=== PATIENT | male | born 1975 | race Caucasian/White ===

== ENCOUNTER 2021-09-02 16:48 | Emergency (ER) | payer OTHER, SELFPAY ==
[2021-09-02] VITALS (12 sets, daily range): BP systolic 127–157; BP diastolic 64–97; PULSE 67–88; RESP 16–25; TEMP 36.9; O2SAT 94–100; BMI 30.3
[2021-09-02 17:59] LABS: Add Manual Diff / Slide Review NO; Basophils Absolute Auto 0 /uL (0-100); Basophils Percent Auto 0.8 % (0-2); Eosinophils Absolute Auto 100 /uL (0-450); Eosinophils Percent Auto 2.4 % (2-4); Hematocrit 41.7 % (41-53); Hemoglobin 14.5 g/dL (13.5-17.5); Lymphocytes Absolute Auto 1900 /uL (1100-4500); Lymphocytes Percent Auto 30.1 % (25-40); Mean Corpuscular HGB Conc 34.6 % (30-36); Mean Corpuscular Hemoglobin 28.2 PG (26-34); Mean Corpuscular Volume 81.5 fL (80-100); Monocytes Absolute Auto 400 /uL (0-900); Monocytes Percent Auto 7.1 % (3-14); Neutrophils Absolute Auto 3700 /uL (1500-7000); Neutrophils Percent Auto 59.6 % (50-75); Platelet Count 191 X10^3/uL (150-400); Red Blood Cell Count 5.12 X10^6/uL (4.5-5.9); Red Cell Distribution Width 14.3 % (11.6-14.8); White Blood Cell Count 6.2 X10^3/uL (4.5-11.0)
[2021-09-02] MEDS: ONDANSETRON 4 MG/2 ML INJ IV (18:07)
[2021-09-02] MEDS: HYDROMORPHONE 1 MG INJ IV ×2 (18:08→19:58)
[2021-09-02 18:15] LABS: Prothrombin Time 11.1 SECONDS (10.1-12.7)
[2021-09-02 18:15] LABS: Alanine Aminotransferase 68 IU/L (<50); Albumin 4.2 g/dL (3.5-5.0); Albumin Globulin Ratio 1.5 (1.0-2.8); Alkaline Phosphatase 86 U/L (38-126); Aspartate Aminotransferase 39 IU/L (17-59); BUN Creatinine Ratio 21.9 (6-22); Bilirubin Total 0.5 mg/dL (0.2-1.3); Blood Urea Nitrogen 16 mg/dL (9-20); Carbon Dioxide 26 mmol/L (22-32); Chloride 105 mmol/L (98-107); Estimated Glomerular Filt Rate > 60.0 mL/min (>60); Globulin 2.8 g/dL (1.7-4.1); Glucose 243 mg/dL (70-100); HEMOLYSIS < 15 (0-50); Lipase 62 U/L (23-300); Potassium 3.5 mmol/L (3.4-5.1); Sodium 140 mmol/L (137-145)
[2021-09-02 18:18] LABS: PTT Partial Thromboplastin Tim 33 SECONDS (26.4-36.2)
--- NOTE | 2021-09-02 18:46 | ED.ABDPAIN ---
HPI - Abdominal Pain General Chief Complaint: Abdominal Pain Stated Complaint: ABD PAIN TOWARDS RIGHT SIDE NAUSEA HEADACHE Time Seen by Provider: 09/02/21 18:03 Source: patient Mode of arrival: Ambulatory Limitations: no limitations History of Present Illness HPI narrative: 45-year-old male nonsmoker with history of gastric surgery presents with a chief complaint of gradually worsening symptoms since yesterday. He states that initially he had generalized fatigue with achiness and nausea and starting this morning began to have increasing generalized abdominal pain which has settled in his right lower quadrant. He states that any motion makes the pain significant worse. Rest seems to be the only thing that helps. He has had decreased appetite and last ate at about 10:00 a.m. this morning. He denies any fever or chills but generally feels unwell. He has no urinary complaints such as dysuria, frequency, urgency or hematuria. Related Data Previous Rx's Medication Instructions Recorded hydrocodone 5 mg-acetaminophen 325 1 tab PO Q4-6H PRN #10 tab 09/02/21 mg tablet ondansetron 4 mg disintegrating 4 mg PO TID-QID PRN #10 tab 09/02/21 tablet Allergies Allergy/AdvReac Type Severity Reaction Status Date / Time Penicillins Allergy Verified 09/02/21 17:44 Review of Systems Review of Systems Narrative: GENERAL: See HPI HEENT: Denies sinus pain, ear pain, sore throat, difficulty swallowing, dizziness. RESPIRATORY: Denies dyspnea, cough, wheezing, hemoptysis, sputum. CARDIOVASCULAR: Denies chest pain, palpitations, orthopnea, edema, GASTROINTESTINAL: See HPI : See HPI MUSCULOSKELETAL: denies weakness, joint pain, or bony pain SKIN: Denies rash, skin lesions, or other NEUROLOGIC: Denies weakness, headache, numbness, change in speech, confusion, seizures, incoordination. PSYCHIATRIC: No concerning psychosocial issues. 12 point review of systems is negative except for those stated above Patient History Social History Smoking Status: Never smoker Smoking Status: Never smoker alcohol intake frequency: holidays/special occasions only Substance Use Type: does not use Exam Narrative Exam Narrative: GENERAL: [Board or year old patient appears stated age. Well-developed patient, in obvious distress, rubbing his lower abdomen HEAD: Atraumatic. Normocephalic. EYES: Pupils equal round and reactive. Extraocular motions intact. No scleral icterus. No injection or drainage. ENT: Nose without bleeding, purulent drainage. Throat without erythema, tonsillar hypertrophy or exudate. Airway patent. NECK: Trachea midline. Non tender CARDIOVASCULAR: Regular rate and rhythm without murmurs, gallops, or rubs. RESPIRATORY: Clear to auscultation. Breath sounds equal bilaterally. No wheezes, rales, or rhonchi. GASTROINTESTINAL: Abdomen soft, tender in the right lower quadrant with positive heel tap, obturator and psoas. : No testicular pain, swelling or redness, no palpable inguinal hernia EXTREMITIES: No edema or joint tenderness. BACK: Nontender without deformity or crepitance. No flank tenderness. NEURO: AOx3. SKIN: No rash or erythema of visible areas Initial Vital Signs Initial Vital Signs: Vital Signs Pulse Rate 88 09/02/21 17:44 Respiratory Rate 20 09/02/21 17:44 Blood Pressure 140/92 H 09/02/21 17:44 Pulse Oximetry 97 09/02/21 17:44 Course Orders Ordered: ED Orders 09/02/21 17:42 EKG-12 Lead Stat 09/02/21 17:47 Complete Blood Count AUTO DIFF Stat Comprehensive Metabolic Panel Stat Lipase Stat 09/02/21 18:06 Partial Thromboplastin Time Stat Prothrombin Time INR Stat 09/02/21 18:25 COVID19 - ADMIT ([employer] HAND swab/PCR) Stat 09/02/21 18:52 CT abdomen pelvis w con Stat 09/02/21 20:44 Urinalysis and Microscopic Stat Discontinued Medications Hydrocodone Bitart/Acetaminophen (Hydrocodone/Acet 5/325 Prepack) 1 bottle MISC SEEINSTR ONE Stop: 09/02/21 20:31 Hydromorphone HCl (Hydromorphone 1 Mg Inj) 1 mg IV NOW ONE Stop: 09/02/21 18:04 Last Admin: 09/02/21 18:08 Dose: 1 mg Documented by: BERNARDO Hydromorphone HCl (Hydromorphone 1 Mg Inj) 1 mg IV NOW ONE Stop: 09/02/21 19:42 Last Admin: 09/02/21 19:58 Dose: 1 mg Documented by: BERNARDO Ondansetron HCl (Ondansetron 4 Mg/2 Ml Inj) 4 mg IV NOW ONE Stop: 09/02/21 17:42 Last Admin: 09/02/21 18:07 Dose: 4 mg Documented by: BERNARDO Ondansetron HCl (Ondansetron 4 Mg Odt Prepack) 1 bottle MISC SEEINSTR ONE Stop: 09/02/21 20:31 Consultations Consultation #1: General surgery consulted early in the visit given concern for many classic elements of appendicitis. Recommendation to perform CT scan Consultation #2: Upon receipt of CT scan and labs I called surgery back. Patient has very reassuring vital signs, heart rate has never been above the 80s. There is no fever, no white count and CT scan and sees no abnormalities. Surgery recommends patient be discharged with symptomatic treatment return precautions and encouragement for close follow-up Vital Signs Vital signs: Vital Signs - 8 hr 09/02/21 17:44 09/02/21 17:48 09/02/21 18:14 Temperature 98.4 F Pulse Rate 88 84 Respiratory Rate 20 22 Blood Pressure 140/92 H Pulse Oximetry 97 96 09/02/21 18:17 09/02/21 18:30 09/02/21 19:10 Temperature Pulse Rate 83 79 85 Respiratory Rate 25 H 17 Blood Pressure 149/83 H 141/83 H Pulse Oximetry 95 95 95 09/02/21 19:11 Temperature Pulse Rate 74 Respiratory Rate 21 Blood Pressure 138/85 Pulse Oximetry 95 MDM - Abdominal Pain Lab Data Result diagrams: 09/02/21 17:47 09/02/21 17:47 Labs: Lab Results 09/02/21 09/02/21 09/02/21 Range/Units 17:47 17:47 18:06 WBC 6.2 (4.5-11.0) X10^3/uL RBC 5.12 (4.5-5.9) X10^6/uL Hgb 14.5 (13.5-17.5) g/dL Hct 41.7 (41-53) % MCV 81.5 (80-100) fL MCH 28.2 (26-34) PG MCHC 34.6 (30-36) % RDW 14.3 (11.6-14.8) % Plt Count 191 (150-400) X10^3/uL Neut % (Auto) 59.6 (50-75) % Lymph % (Auto) 30.1 (25-40) % [place] % (Auto) 7.1 (3-14) % Eos % (Auto) 2.4 (2-4) % Baso % (Auto) 0.8 (0-2) % Neut # (Auto) 3700 (6533-8387) /uL Lymph # (Auto) 1900 (1884-9499) /uL [place] # (Auto) 400 (0-900) /uL Eos # (Auto) 100 (0-450) /uL Baso # (Auto) 0 (0-100) /uL PT 11.1 (10.1-12.7) SECONDS INR 1.0 (0.9-1.3) APTT 33 (26.4-36.2) SECONDS Sodium 140 (137-145) mmol/L Potassium 3.5 (3.4-5.1) mmol/L Chloride 105 (98-107) mmol/L Carbon Dioxide 26 (22-32) mmol/L BUN 16 (9-20) mg/dL Creatinine 0.73 (0.66-1.25) mg/dL Estimated GFR > 60.0 (>60) mL/min BUN/Creatinine Ratio 21.9 (6-22) Glucose 243 H (70-100) mg/dL Calcium 9.0 (8.4-10.2) mg/dL Total Bilirubin 0.5 (0.2-1.3) mg/dL AST 39 (17-59) IU/L ALT 68 H (<50) IU/L Alkaline Phosphatase 86 (38-126) U/L Total Protein 7.0 (6.3-8.2) g/dL Albumin 4.2 (3.5-5.0) g/dL Globulin 2.8 (1.7-4.1) g/dL Albumin/Globulin Ratio 1.5 (1.0-2.8) Lipase 62 (23-300) U/L Urine Color Urine Appearance Urine pH (4.5-8.0) Ur Specific [place] (1.000-1.035) Urine Protein (Negative) Urine Glucose (UA) (Negative) g/dL Urine Ketones (NEGATIVE) Urine Occult Blood (Negative) Urine Nitrate (Negative) Urine Bilirubin (NEGATIVE) Urine Urobilinogen (0.2) E.U./dL Ur Leukocyte Esterase (NEGATIVE) Urine RBC (0-5/HPF) Urine WBC (0-5/HPF) Other Crystals Urine Bacteria (None) Ur Culture Indicated? SARS-CoV-2 (PCR) (Negative) 09/02/21 09/02/21 Range/Units 18:25 20:44 WBC (4.5-11.0) X10^3/uL RBC (4.5-5.9) X10^6/uL Hgb (13.5-17.5) g/dL Hct (41-53) % MCV (80-100) fL MCH (26-34) PG MCHC (30-36) % RDW (11.6-14.8) % Plt Count (150-400) X10^3/uL Neut % (Auto) (50-75) % Lymph % (Auto) (25-40) % [place] % (Auto) (3-14) % Eos % (Auto) (2-4) % Baso % (Auto) (0-2) % Neut # (Auto) (9767-7178) /uL Lymph # (Auto) (0874-4553) /uL [place] # (Auto) (0-900) /uL Eos # (Auto) (0-450) /uL Baso # (Auto) (0-100) /uL PT (10.1-12.7) SECONDS INR (0.9-1.3) APTT (26.4-36.2) SECONDS Sodium (137-145) mmol/L Potassium (3.4-5.1) mmol/L Chloride (98-107) mmol/L Carbon Dioxide (22-32) mmol/L BUN (9-20) mg/dL Creatinine (0.66-1.25) mg/dL Estimated GFR (>60) mL/min BUN/Creatinine Ratio (6-22) Glucose (70-100) mg/dL Calcium (8.4-10.2) mg/dL Total Bilirubin (0.2-1.3) mg/dL AST (17-59) IU/L ALT (<50) IU/L Alkaline Phosphatase (38-126) U/L Total Protein (6.3-8.2) g/dL Albumin (3.5-5.0) g/dL Globulin (1.7-4.1) g/dL Albumin/Globulin Ratio (1.0-2.8) Lipase (23-300) U/L Urine Color Yellow Urine Appearance Cloudy Urine pH 8.0 (4.5-8.0) Ur Specific [place] <=1.005 (1.000-1.035) Urine Protein Negative (Negative) Urine Glucose (UA) Trace H (Negative) g/dL Urine Ketones Negative (NEGATIVE) Urine Occult Blood Negative (Negative) Urine Nitrate Negative (Negative) Urine Bilirubin Negative (NEGATIVE) Urine Urobilinogen 0.2 (0.2) E.U./dL Ur Leukocyte Esterase Negative (NEGATIVE) Urine RBC 0-1/hpf (0-5/HPF) Urine WBC 0-1/hpf (0-5/HPF) Other Crystals 1+ amorphous Urine Bacteria None seen (None) Ur Culture Indicated? Cult not indicated SARS-CoV-2 (PCR) Negative (Negative) Imaging Data CT scan - abdomen/pelvis: Radiologist's Impression: [address] [place] [id number] Scan Report Signed Patient: Myrna Malone MR#: [id number] : 1975 Acct:[id number] Age/Sex: 45 / M Date of Service: 09/02/21 Loc: ED Accession Number: [id number] ?? Procedure: CT abdomen pelvis w con Ordering Provider: Bob Vidales D.O. PROCEDURE:? CT ABDOMEN PELVIS W CON ? INDICATIONS:? RLQ pain, rebound appy? ? TECHNIQUE:? After the administration of intravenous contrast, axial sections acquired from the lung bases to the pubic symphysis.? Coronal and sagittal reformats were performed.? For radiation dose reduction, the following was used:? automated exposure control, adjustment of mA and/or kV according to patient size.? ? COMPARISON:? None. ? FINDINGS: Image quality:? Excellent.? ? Lung bases:? Lung bases are clear.? Heart size is normal. ? Solid organs:? Liver: The liver has no mass or intrahepatic biliary ductal dilatation. The portal vein and hepatic veins are patent.? The liver has geographic decreased density consistent with hepatic steatosis. Biliary: The gallbladder has no gallstones, pericholecystic fluid, gallbladder wall thickening, or surrounding inflammatory change. Pancreas: The pancreas has no mass or ductal dilatation. There is no surrounding inflammation. Spleen: Normal size. There are no masses. Adrenals: No hypertrophy or nodules. Kidneys: No obstructive calculus or hydronephrosis.? No solid mass. No cystic mass.? The right kidney has a 1.5 centimeters simple cyst in the inferior pole. ? Peritoneum and bowel:? The distal esophagus and stomach are normal.? The small bowel has a normal caliber.? There is fluid in the distal small bowel consistent with enteritis.. The terminal ileum is normal. The large bowel diverticulosis with no evidence of diverticulitis.? The appendix is normal. No free fluid or air.? ? Nodes and vessels:? No retroperitoneal or mesenteric adenopathy by size criteria.? Aorta and inferior vena cava are normal in size.? The aorta has some atherosclerotic calcifications. ? Miscellaneous:? No abdominal wall mass or hernia. ? PELVIS:? Genitourinary:? The bladder has no wall thickening or mass. No bladder calcifications. ? Miscellaneous:? No inguinal hernias or adenopathy.? ? Bones:? No suspicious bony lesions.? No vertebral body compression fractures.? ? IMPRESSION:? 1. No acute abnormality of the abdomen or pelvis. 2. Normal appendix.? No kidney stone. 3. Hepatic steatosis. ? Dictated by: Lew Rosa M.D. on 09/02/2021 at 19:24 ? ? Approved by: Lew Rosa M.D. on 09/02/2021 at 19:30 ? MDM Narrative Medical decision making narrative: Patient with right lower quadrant pain has a story and physical exam the raise a question of appendicitis, however there are no objective findings to suggest this. Vital signs are very reassuring, urine shows no infection, blood work without significant abnormalities and CT scan shows no appendicitis, kidney stone, mesenteric adenitis, bowel obstruction or other. Testicular torsion and hernia considered but no findings on exam to suggest this. Multiple conversations with on-call surgery who shares the opinion that there is no indication for admission or a trip to the operating room. Return precautions discussed with the patient and questions answered to his apparent satisfaction. Discharge Plan Departure Patient Disposition: Home Clinical Impression: Abdominal pain, acute, right lower quadrant Instructions: DI for Abdominal Pain-Adult Activity Restrictions/Additional Instructions: *You have been diagnosed with [right lower quadrant pain with very reassuring vital signs, lab work, and CT scan. There is no evidence of bowel obstruction, appendicitis, kidney stone or other abnormal finding *What to do: *Please continue to take your regular medications as directed. [ x] New medication prescriptions sent to your pharmacy: [facility] [ ] New medication written as a paper prescription [ ] No new medications given *Please consider a clear liquid diet for the next day or two and then advance as tolerated *Please follow up with your primary care provider in 2-3 days, call for an appointment. Let them know you were seen in the Emergency Department and that we ask that you be seen in follow up. We will electronically transmit a record of today's note if your PCP is in our system *If you do not have a primary care provider please contact the [facility] Resource line at [phone]. They will ask some questions about your medical history and help get you set up with a doctor in the community. *Return to Emergency Department if you should have any new, worsening or concerning symptoms, such as [fever greater than 101 F, shaking chills, worsening pain, persistent vomiting or other bothersome symptoms] Prescriptions: New hydrocodone-acetaminophen 5-325 mg tablet 1 tab PO Q4-6H PRN (Reason: pain) Qty: 10 RF: 0 ondansetron 4 mg tablet,disintegrating 4 mg PO TID-QID PRN (Reason: nausea and vomiting) Qty: 10 RF: 0
--- NOTE | 2021-09-02 18:52 | DI.CT.S_ITS ---
PROCEDURE: CT ABDOMEN PELVIS W CON INDICATIONS: RLQ pain, rebound appy? TECHNIQUE: After the administration of intravenous contrast, axial sections acquired from the lung bases to the pubic symphysis. Coronal and sagittal reformats were performed. For radiation dose reduction, the following was used: automated exposure control, adjustment of mA and/or kV according to patient size. COMPARISON: None. FINDINGS: Image quality: Excellent. Lung bases: Lung bases are clear. Heart size is normal. Solid organs: Liver: The liver has no mass or intrahepatic biliary ductal dilatation. The portal vein and hepatic veins are patent. The liver has geographic decreased density consistent with hepatic steatosis. Biliary: The gallbladder has no gallstones, pericholecystic fluid, gallbladder wall thickening, or surrounding inflammatory change. Pancreas: The pancreas has no mass or ductal dilatation. There is no surrounding inflammation. Spleen: Normal size. There are no masses. Adrenals: No hypertrophy or nodules. Kidneys: No obstructive calculus or hydronephrosis. No solid mass. No cystic mass. The right kidney has a 1.5 centimeters simple cyst in the inferior pole. Peritoneum and bowel: The distal esophagus and stomach are normal. The small bowel has a normal caliber. There is fluid in the distal small bowel consistent with enteritis.. The terminal ileum is normal. The large bowel diverticulosis with no evidence of diverticulitis. The appendix is normal. No free fluid or air. Nodes and vessels: No retroperitoneal or mesenteric adenopathy by size criteria. Aorta and inferior vena cava are normal in size. The aorta has some atherosclerotic calcifications. Miscellaneous: No abdominal wall mass or hernia. PELVIS: Genitourinary: The bladder has no wall thickening or mass. No bladder calcifications. Miscellaneous: No inguinal hernias or adenopathy. Bones: No suspicious bony lesions. No vertebral body compression fractures. IMPRESSION: 1. No acute abnormality of the abdomen or pelvis. 2. Normal appendix. No kidney stone. 3. Hepatic steatosis. Dictated by: Lew Rosa M.D. on 09/02/2021 at 19:24 Approved by: Lew Rosa M.D. on 09/02/2021 at 19:30
[2021-09-02 19:28] LABS: COVID19 - ADMIT (NP swab/PCR) Negative (Negative)
--- NOTE | 2021-09-02 20:33 | PC.NURSE ---
Callrd Dr Daugherty @ 1946 ( she was in OR and stated through her nurse that she would call back) she called back at [address] Vidales
[2021-09-02 21:01] LABS: Appearance Urine UA CLOUDY; Bilirubin Urine UA NEGATIVE (NEGATIVE); Color Urine UA YELLOW; Glucose Urine UA TRACE g/dL (Negative); Ketones Urine UA NEGATIVE (NEGATIVE); Leukocyte Esterase Urine UA NEGATIVE (NEGATIVE); Nitrite Urine UA NEGATIVE (Negative); Occult Blood Urine UA NEGATIVE (Negative); Protein Urine UA NEGATIVE (Negative); Specific Gravity Urine UA <=1.005 (1.000-1.035); Urobilinogen Urine UA 0.2 E.U./dL (0.2)
[2021-09-02 21:14] LABS: Bacteria Urine None Seen; Culture Indicated Urine Cult Not Indicated; Other Crystals Urine 1+ Amorphous; RBC Urine 0-1/HPF (0-5/HPF); WBC Urine 0-1/HPF (0-5/HPF)
[2021-09-02] MEDS: HYDROCODONE/ACET 5/325 PREPACK 1 BOTTLE MISC (21:34)
[2021-09-02] MEDS: ONDANSETRON 4 MG ODT PREPACK 1 BOTTLE MISC (21:34)
== END 2021-09-02 21:42 | disposition home or self-care (01) ==
PROVIDERS: Emergency Medicine; Emergency Provider Emergency Medicine
DX: R10.31 Right lower quadrant pain (principal); R53.83 Other fatigue; R11.0 Nausea; Z20.822 Contact with and (suspected) exposure to COVID-19
CPT/HCPCS: 36415; 74177; 80053; 81001; 83690; 85025; 85610; 85730; 87635; 96374; 96375; 96376; 99284; C9803; J1170; J2405; Q9967

== ENCOUNTER → 2021-10-30 16:51 | Outpatient (CLI) | payer OTHER, SELFPAY ==
--- NOTE | 2021-10-30 | DI.MRI.S_ITS ---
PROCEDURE: MR SHOULDER RT WO CON INDICATIONS: unspecified rotator cuff tear or rupture of right TECHNIQUE: Noncontrast oblique coronal T2 fast spin echo with fat saturation, oblique sagittal T1 spin echo and T2 fast spin echo with fat saturation, axial T1 spin echo and T2 fast spin echo with fat saturation through the shoulder. COMPARISON: [facility] [place], CR, XR SHOULDER 2+ VIEWS RIGHT, 10/03/2021, 10:57. FINDINGS: Image quality: Excellent. Rotator cuff: There is full-thickness tear of the subscapularis tendon. No tendon retraction. There is partial-thickness tear of the supraspinatus and infraspinatus tendons. Sagittal images demonstrate no rotator cuff muscle atrophy. Bones and bursae: No bone marrow contusions or fractures. There is moderate acromioclavicular and glenohumeral joint degeneration. The acromion demonstrates conventional anatomy, without an os acromiale. No pathologic subacromial-subdeltoid or subcoracoid bursal fluid is present. Small glenohumeral joint effusion. Capsule and soft tissues: There is degenerative fraying of the labrum. The long head of the biceps tendon demonstrates normal location and morphology. The rotator interval appears normal, without fibrosis. The coracohumeral ligament is normal in thickness. IMPRESSION: 1. Full-thickness tear of the subscapularis tendon. 2. Partial-thickness tear of the supraspinatus and infraspinatus tendons. 3. Moderate acromioclavicular and glenohumeral joint degeneration. 4. Degenerative labral fraying. 5. Small glenohumeral joint effusion. Dictated by: Micah Wright M.D. on 10/31/2021 at 7:47 Approved by: Micah Wright M.D. on 10/31/2021 at 9:18
== END ==
PROVIDERS: PCP Orthopaedic Surgery; Referring Provider Orthopaedic Surgery; Visit Provider Orthopaedic Surgery
DX: M75.121 Complete rotator cuff tear or rupture of right shoulder, not specified as traumatic (principal); M19.011 Primary osteoarthritis, right shoulder; M25.411 Effusion, right shoulder
CPT/HCPCS: 73221

== ENCOUNTER → 2022-01-15 09:17 | Outpatient (CLI) | payer OTHER, SELFPAY ==
[2022-01-15 11:37] LABS: COVID19 -Nasal RAPID Negative (Negative)
== END ==
PROVIDERS: Visit Provider Family Medicine Sleep Medicine
DX: Z20.822 Contact with and (suspected) exposure to COVID-19 (principal)
CPT/HCPCS: 87635; C9803

== ENCOUNTER 2022-01-17 11:00 | Day surgery (SDC) | payer OTHER, SELFPAY ==
[2022-01-15 11:53] VITALS: BMI 459.6
[2022-01-17] VITALS (9 sets, daily range): BP systolic 123–157; BP diastolic 76–98; PULSE 13–85; RESP 11–98; TEMP 35.8–36.3; O2SAT 90–98; BMI 459.6
[2022-01-17] MEDS: LACTATED RINGERS 1,000 ML 42 ML IV ×2 (11:31→15:01)
--- NOTE | 2022-01-17 12:43 | PM.HP.1 ---
History of Present Illness History of Present Illness Date Patient Seen: 01/17/22 Time Patient Seen: 12:43 Chief complaint: SDC Narrative: This is interim history and physical. The patient previously had a full history and physical performed. He had a recent episode of COVID-19 which delayed his surgery for 1 month. He has fully cleared that. Other issues have remained at their baseline. Patient History Medical History Arthritis COVID (~11/2021) Degenerative joint disease Depression Diabetes Fracture Headache, migraine Hepatic steatosis Hyperlipidemia Hypertension Traumatic complete tear of right rotator cuff Surgical History History of hernia repair History of vasectomy Family & Social History Social History: household members spouse Tobacco & Substance use: Smoking Status Never smoker alcohol intake frequency holiday/special occasion Substance Use Type does not use Meds Home Medications and Allergies Home Medications Medication Instructions Recorded Confirmed Type atorvastatin 20 mg tablet 20 mg PO DAILY 01/15/22 01/17/22 History celecoxib 100 mg capsule 100 mg PO DAILY 01/15/22 01/17/22 History duloxetine 30 mg capsule,delayed 30 mg PO DAILY 01/15/22 01/17/22 History release duloxetine 60 mg capsule,delayed 60 mg PO DAILY 01/15/22 01/17/22 History release lisinopril 40 mg tablet 40 mg PO DAILY 01/15/22 01/17/22 History sitagliptin 50 mg-metformin 1,000 50 - 1,000 tab PO BID 01/15/22 01/17/22 History mg tablet (Janumet) topiramate 25 mg tablet 50 mg PO BID 01/15/22 01/17/22 History Allergies Allergy/AdvReac Type Severity Reaction Status Date / Time Penicillins Allergy Unknown Verified 01/17/22 11:31 Review of Systems Review of Systems Narrative: The patient has no current symptoms of COVID-19. He states he has been in his normal state of health. Exam Vital Signs (past 8 hours): - 01/17/22 11:41 Temperature 97.3 F L Pulse Rate 85 Respiratory Rate 20 Blood Pressure 145/92 H Pulse Oximetry 98 Oxygen Delivery Method Room Air Narrative Exam Narrative: Chest is clear to auscultation. Cardiac exam is regular rate and rhythm. Abdomen is nontender. Musculoskeletal examination is documented in his previous history and physical. Assessment & Plan Assessment & Plan narrative: Right shoulder subscapularis tear. The plan is for him to undergo an open right subscapularis repair. This is a delayed presentation of the tear so there may be difficulty with repair and he is aware that this may lead to muscle transfer other salvage procedure. The risks benefits and alternatives have been reviewed with him and he has signed a 2nd consent form to bring it up today. Risks discussed included but were not limited to: Failure to improve, stiffness, infection, nerve damage, deep venous thrombosis, pulmonary embolism, stroke, myocardial infarction, permanent paralysis, aspiration pneumonia and . COVID-19 COVID-19 status: Negative Result date/Date tested (Pos, Neg/Pending): 01/15/22 Time Spent With Patient Critical Care time: I spent a total of [] minutes of critical care time on this patient's care today; this time is exclusive of procedural time.
[2022-01-17] MEDS: CEFAZOLIN 2 GM/20 ML SYRINGE IV (13:15)
--- NOTE | 2022-01-17 13:39 | PM.PROC.1 ---
Procedures Date/Time Date of procedure: 01/17/22 Time of procedure: 12:45 General Procedure description: Ultrasound guided interscalene brachial plexus nerve block for post op pain control after right should rotator cuff repair by Dr. Keys. Risk and benefits of procedure discussed with patient. ASA monitoring applied to patient. O2 given via nasal cannula. 2 mg Versed and 50 mcg fentanyl given for procedural sedation. Skin site was prepped with chlorhexidine and allowed to fully dry. Sterile gloves, mask, hat and probe cover were used to maintain sterility. 2% lidocaine and 30ga needle was used to make a small skin wheal at needle insertion site. Under ultrasound guidance, a 21ga 50mm [place] needle was directed into the interscalene groove (middle/anterior scalenes) near the brachial plexus. Patient reported no parasthesias. After negative aspiration, 20 mL 0.5% ropivacaine and 10mg dexamethasone were injected around brachial plexus. Patient tolerated procedure well.
--- NOTE | 2022-01-17 13:41 | SUR.PREOP ---
1250 - Dr Bermuen at bedside to perform interscalene block. Monitoring initiated and maintained throughout procedure. O2 at 2LNC applied. Medicated by Dr Berumen. 1251 - Time out performed. 1258 - Injection time. 1300 - Block complete. Pt remained stable throughout procedure with no adverse reactions noted.
--- NOTE | 2022-01-17 13:44 | SUR.OPER ---
Beach chair with Schlein shoulder positioner. Lower body on padded OR bed. Head in foam padded head cradle, secured with straps. Non-operative arm secured <90 degrees abduction. Pillow under knees. Safety belt at thigh. Cloth tape over blanket over lower legs. Gel pad under heels.
[2022-01-17] MEDS: BUPIVACAINE 0.5% (PF) 30 ML, EPINEPHrine 0.15 MG INJ (13:58)
--- NOTE | 2022-01-17 14:30 | PM.OP.1 ---
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 This initially was treated non operatively and a full workup was deferred until the patient returned to the [facility] which delayed the diagnosis of his subscapularis rupture considerably. He has agreed to an attempted open repair after discussion the risks benefits and alternatives. Risks discussed included but were not limited to: Failure to be able to repair, possible need for a muscle transfer, stiffness, infection, nerve damage, deep venous thrombosis, pulmonary embolism, stroke, myocardial infarction, permanent paralysis, aspiration pneumonia and . Surgeon: Lc Keys Academic Records Specialist: Clari Javier Click Yes if Unassisted: No Anesthesia Type: General, Peripheral nerve block and Local Operative Notes Findings: Tear of the upper 3rd of the subscapularis with minimal mobility of the remaining tendon. The supraspinatus appeared to be intact. There was extensive scarring of the deltoid and pectoralis to the underlying tissues. Closure Type: primary Specimen(s): none sent Prosthetic devices, grafts, tissues, transplants, or devices: Implants used in this procedure included a bio composite corkscrew FT 5.5 mm anchor with 2 #2 Sutures. Applied: implant(s) Estimated Blood Loss (mL): 50 Blood products transfused: none Procedure in detail: The patient was seen in the preoperative area where he identified his right shoulder as the operative site and this was marked with my initials. He underwent an interscalene block and was taken to the operating room and placed on the operating room table in the supine position where he underwent a general anesthetic. He received preoperative antibiotics. He was repositioned in the ?beach chair? position. All pressure points were well padded, and the knees were slightly bent to prevent tension on the sciatic nerves. The right arm was prepared for the fingertips to the base the neck with ChloraPrep in the usual fashion draped through sterile drapes. The shoulder was approached an approximately 10 cm incision starting just lateral to the coracoid and extending distally over the deltopectoral interval. The deltopectoral interval was exploited to access the shoulder in the vein was taken laterally and preserved throughout the case. The pectoralis muscle and the deltoid were adherent to the underlying tissues. These adhesions were lysed using a Downing elevator under the deltoid and digitally with my fingers underneath the pectoralis. The lateral aspect of the strap muscles was identified and scarred bursa was excised. With careful palpation the biceps tendon was identified as was the upper border of the subscapularis. The scarred capsule from the upper portion of the subscapularis to the leading edge of the supraspinatus was excised. I carefully inspected the mobility in appeared possible to advance the subscapularis partially to its insertion and to advance the rotator interval anteriorly partially. The upper portion of the lesser tuberosity was debrided to bleeding bone using the bur. A single anchor was placed. The sutures from this anchor were placed with 1 limb through the subscapularis and the 2nd limb through the rotator interval and these were tied to advance the subscapularis superiorly. A 3rd suture with #2 Ethibond was placed medial to the anchor stitches to continue the closure of the rotator interval. At the conclusion of this the repair was inspected and found to be robust and able to withstand motion of the shoulder. Wound was irrigated extensively with saline. The deltopectoral interval was loosely reapproximated with 0 Vicryl. The subcutaneous layer was closed with 3-0 Vicryl. The skin was closed with a running 3-0 barbed suture and Dermabond. The inferior portion of the wound was injected with 10 mL of 0 point 5% Marcaine for postoperative pain control. An Aquacel Ag dressing was applied. The patient's arm was placed in a sling and he was allowed to awaken from anesthetic and taken to the recovery room in good condition having tolerated the procedure well. Complications: none Post-operative Condition: stable Disposition: PACU Plan for aftercare: The patient will be discharged today. He will be maintained on a standard subscapularis repair protocol.
[2022-01-17] MEDS: HYDROMORPHONE 2 MG INJ IV ×4 (14:38→15:15)
[2022-01-17] MEDS: OXYCODONE/ACETAMINOPHEN 5/325 TABLET 1 TAB PO ×2 (14:54→15:03)
[2022-01-17] MEDS: hydrOXYzine pamoate 25 MG CAPSULE PO (15:04)
== END 2022-01-17 16:00 | disposition home or self-care (01) ==
PROVIDERS: PCP Family Medicine; Referring Provider Orthopaedic Surgery; Visit Provider Orthopaedic Surgery
PROC: (CPT 23412; principal; 2022-01-17 13:00)
DX: S46.011A Strain of muscle(s) and tendon(s) of the rotator cuff of right shoulder, initial encounter (principal); W01.0XXA Fall on same level from slipping, tripping and stumbling without subsequent striking against object, initial encounter; E11.9 Type 2 diabetes mellitus without complications; I10 Essential (primary) hypertension; E78.5 Hyperlipidemia, unspecified; Z79.84 Long term (current) use of oral hypoglycemic drugs
CPT/HCPCS: 23412; 64450; J0171; J0690; J1100; J1170; J2250; J2405; J2704; J3010

== ENCOUNTER 2022-02-13 11:16 | Emergency (ER) | payer OTHER, SELFPAY ==
[2022-02-13] VITALS (13 sets, daily range): BP systolic 106–140; BP diastolic 62–88; PULSE 68–86; RESP 11–21; TEMP 36.2; O2SAT 93–96; BMI 30.3
--- NOTE | 2022-02-13 11:32 | DI.RAD.S_ITS ---
PROCEDURE: XR CHEST 1V INDICATIONS: chest pain TECHNIQUE: One view of the chest was acquired. COMPARISON: None. FINDINGS: Surgical changes and devices: None. Lungs and pleura: Lungs are clear. No pleural effusions or pneumothorax. Mediastinum: Mediastinal contours appear normal. Heart size is normal. Bones and chest wall: No suspicious bony lesions. Overlying soft tissues appear unremarkable. IMPRESSION: No evidence acute pulmonary process. Dictated by: Maninder Kelsey M.D. on 02/13/2022 at 12:44 Approved by: Maninder Kelsey M.D. on 02/13/2022 at 12:44
[2022-02-13 12:24] LABS: Add Manual Diff / Slide Review NO; Basophils Absolute Auto 0 /uL (0-100); Basophils Percent Auto 0.4 % (0-2); Eosinophils Absolute Auto 100 /uL (0-450); Eosinophils Percent Auto 1.7 % (2-4); Hematocrit 45.3 % (41-53); Hemoglobin 15.7 g/dL (13.5-17.5); Lymphocytes Absolute Auto 1800 /uL (1100-4500); Lymphocytes Percent Auto 25.1 % (25-40); Mean Corpuscular HGB Conc 34.7 % (30-36); Mean Corpuscular Hemoglobin 28.3 PG (26-34); Mean Corpuscular Volume 81.7 fL (80-100); Monocytes Absolute Auto 500 /uL (0-900); Monocytes Percent Auto 7.5 % (3-14); Neutrophils Absolute Auto 4600 /uL (1500-7000); Neutrophils Percent Auto 65.3 % (50-75); Platelet Count 233 X10^3/uL (150-400); Red Blood Cell Count 5.55 X10^6/uL (4.5-5.9); Red Cell Distribution Width 14.7 % (11.6-14.8); White Blood Cell Count 7.1 X10^3/uL (4.5-11.0)
--- NOTE | 2022-02-13 12:25 | PC.NURSE ---
pt c/o increased left sided headache and feels full/pressure with decreased sensation to left face/cheek, NIH 1, FAST negative. notified.
[2022-02-13 12:29] LABS: Alanine Aminotransferase 66 IU/L (<50); Albumin 4.9 g/dL (3.5-5.0); Albumin Globulin Ratio 1.6 (1.0-2.8); Alkaline Phosphatase 86 U/L (38-126); Aspartate Aminotransferase 40 IU/L (17-59); BUN Creatinine Ratio 20.2 (6-22); Bilirubin Total 0.8 mg/dL (0.2-1.3); Blood Urea Nitrogen 17 mg/dL (9-20); Calcium 9.8 mg/dL (8.4-10.2); Carbon Dioxide 24 mmol/L (22-32); Chloride 104 mmol/L (98-107); Creatine Kinase 124 U/L (55-170); Estimated Glomerular Filt Rate > 60.0 mL/min (>60); Globulin 3.1 g/dL (1.7-4.1); Glucose 144 mg/dL (70-100); HEMOLYSIS < 15 (0-50); Lipase 52 U/L (23-300); Potassium 3.8 mmol/L (3.4-5.1); Sodium 140 mmol/L (137-145)
[2022-02-13 12:30] LABS: Prothrombin Time 11.1 SECONDS (10.1-12.7)
[2022-02-13 12:32] LABS: PTT Partial Thromboplastin Tim 32 SECONDS (26.4-36.2)
[2022-02-13 12:39] LABS: Troponin I < 0.012 ng/mL (0.01-0.034)
[2022-02-13 12:44] LABS: CKMB % Relative Index 1.9 % (1.5-5.0); Creatine Kinase MB 2.31 ng/mL (<2.37)
--- NOTE | 2022-02-13 13:01 | ED_ITS ---
HPI - Dizziness General Chief Complaint: Dizziness Stated Complaint: dizzy,vomiting,neck pain Time Seen by Provider: 02/13/22 12:41 Source: patient Mode of arrival: Ambulatory Limitations: no limitations History of Present Illness HPI Narrative: This is a 46-year-old male with known history of type 2 diabetes, hypertension, PTSD and insomnia and reported history of cholinesterase exposure. Patient states he is 4 weeks postop tomorrow from right shoulder surgery. He states 2 weeks after he had some left shoulder pain resolved. Yesterday he got out of bed felt sort of dizzy a little bit of a headache and describes his dizziness is vertigo or room spinning. Symptoms continued to persist and this morning at 3:00 a.m. he got out of bed when he rolled over he had significant vertigo symptoms with the room spinning, he fell down at 1 point, he states looking side to side or up and down significantly worsens symptoms. He states he has a left- sided headache which has been progressing and worsening, he has had some numbness and tingling on the left side of his face. He denies any dysarthria, he has had some nausea and vomiting. Patient denies any weakness in his arms or legs. He does note that he gets numbness and tingling various places in his body intermittently after having exposure to cholinesterase while in the . Patient has had bilateral shoulder surgery most recently his right [facility] for a weeks ago, Jing fundoplication remotely, ureteral stents, no cardiac interventions. No tobacco, alcohol or illicit. He is allergic to penicillin. His primary care is through [facility]. Related Data Home Medications Medication Instructions Recorded Confirmed atorvastatin 20 mg tablet 20 mg PO DAILY 01/15/22 01/17/22 celecoxib 100 mg capsule 100 mg PO DAILY 01/15/22 01/17/22 duloxetine 30 mg capsule,delayed 30 mg PO DAILY 01/15/22 01/17/22 release duloxetine 60 mg capsule,delayed 60 mg PO DAILY 01/15/22 01/17/22 release lisinopril 40 mg tablet 40 mg PO DAILY 01/15/22 01/17/22 sitagliptin 50 mg-metformin 1,000 50 - 1,000 tab PO BID 01/15/22 01/17/22 mg tablet (Jamesumejerardo) topiramate 25 mg tablet 50 mg PO BID 01/15/22 01/17/22 Previous Rx's Medication Instructions Recorded hydroxyzine pamoate 25 mg capsule 25 mg PO Q6HR PRN #30 cap 01/17/22 hydroxyzine pamoate 25 mg capsule 25 mg PO Q6HR PRN #30 cap 01/17/22 oxycodone 5 mg tablet 5 mg PO Q4H PRN #40 tab 01/17/22 oxycodone 5 mg tablet 5 mg PO Q4HR PRN #40 tab 01/17/22 Allergies Allergy/AdvReac Type Severity Reaction Status Date / Time Penicillins Allergy Mild Rash Verified 02/13/22 11:26 Review of Systems Review of Systems ROS Unobtainable: All systems reviewed & are unremarkable except as noted in HPI and below Patient History Medical History Arthritis COVID (~11/2021) Degenerative joint disease Depression Diabetes Fracture Headache, migraine Hepatic steatosis Hyperlipidemia Hypertension Traumatic complete tear of right rotator cuff Surgical History History of hernia repair History of vasectomy Social History household members: spouse Smoking Status: Never smoker Smoking Status: Never smoker alcohol intake frequency: holidays/special occasions only Substance Use Type: does not use Exam Narrative Exam Narrative: GEN: well nourished, well appearing male, alert and oriented x 3, patient appears to be in mild distress. HEENT: Atraumatic, pupils are equal round reactive to light, extraocular movements are intact, no nystagmus, patient's symptoms are worsened with extraocular movements though, nares are clear, TMs are clear with no fluid, there is no conjunctival pallor. Throat is clear without any exudates, er ythema, tonsillar enlargement or uvular deviation, facial droop. HEART: Regular rate and rhythm without murmur, clicks, rubs. Pulses are equal in upper and lower extremities LUNGS:Lungs clear to auscultation, no wheezes, rales, crackles, chest moves symmetrically ABD:bowel sounds normal, soft, non-tender, no guarding, rebound, rigidity, no masses noted, no hepatosplenomegaly :No CVA tenderness MSCL: Non-tender, no muscle atrophy, muscles strength 5/5 upper and lower extremities, full range of motion, normal gait NEURO:CN 2-12 intact, sensation normal, reflexes 2/4 upper and lower extremitie s. finger nose finger test normal, heel colon test normal SKIN: No rash, erythema or other skin changes. Initial Vital Signs Initial Vital Signs: Vital Signs Temperature 97.1 F L 02/13/22 11:24 Pulse Rate 86 02/13/22 11:24 Respiratory Rate 15 02/13/22 11:24 Blood Pressure 137/86 02/13/22 11:24 Pulse Oximetry 96 02/13/22 11:24 Scores NIH Stroke Scale Level of Conciousness: Alert, keenly responsive Ask month/age: Answers both questions correctly. Open/close eyes, close hand: Performs both tasks correctly Best gaze horizontal: Normal Visual deluna: No visual loss Facial palsy: Normal symetrical movement Left arm drift: No drift for full 10 sec Right arm drift: No drift for full 10 sec Left leg drift: No drift for full 5 sec Right leg drift: No drift for full 5 sec Limb ataxia: Absent Sensory on face/arms/legs: Mild to moderate sensory loss, can tell touch Best language: No aphasia, normal Dysarthria: Normal Extinction or inattention: No abnormality Total NIH Stroke scale score: 1 Course Orders Ordered: ED Orders 02/13/22 11:32 XR chest 1V Stat EKG-12 Lead Stat 02/13/22 11:40 Complete Blood Count AUTO DIFF Stat Comprehensive Metabolic Panel Stat Lipase Stat Magnesium Stat Partial Thromboplastin Time Stat Prothrombin Time INR Stat Troponin & CK Cardiac Panel Stat 02/13/22 13:11 CT angio head and neck Stat CT head/brain wo con Stat Discontinued Medications Sodium Chloride (Normal Saline 0.9%) 1,000 mls @ 1,000 mls/hr IV BOLUS ONE Stop: 02/13/22 15:41 Last Infusion: 02/13/22 15:46 Dose: 0 mls/hr Documented by: Admin: 02/13/22 14:50 Dose: 1,000 mls/hr Documented by: CINDY Ketorolac Tromethamine (Ketorolac 30 Mg/Ml Vial) 30 mg IV NOW ONE Stop: 02/13/22 14:43 Last Admin: 02/13/22 14:49 Dose: 30 mg Documented by: CINDY Meclizine HCl (Meclizine Hcl 12.5 Mg Tablet) 50 mg PO NOW ONE Stop: 02/13/22 13:13 Last Admin: 02/13/22 13:27 Dose: 50 mg Documented by: CINDY Metoclopramide HCl (Metoclopramide 10 Mg/2 Ml Inj) 10 mg IV NOW ONE Stop: 02/13/22 14:43 Last Admin: 02/13/22 14:49 Dose: 10 mg Documented by: CINDY Morphine Sulfate (Morphine 4 Mg/Ml Inj) 4 mg IV NOW ONE Stop: 02/13/22 13:13 Last Admin: 02/13/22 13:27 Dose: 4 mg Documented by: CINDY Ondansetron HCl (Ondansetron 4 Mg/2 Ml Inj) 4 mg IV NOW ONE Stop: 02/13/22 13:22 Last Admin: 02/13/22 13:27 Dose: 4 mg Documented by: CINDY Reevaluation(s) Reevaluation #1: Patient headache did not really improve with medications. Vertigo symptoms are improved. But headache had minimal improvement. Time: 14:43 Reevaluation #2: Patient headache has improved, still present much much better. States vertigo symptoms are still improved. Patient states a little wobbly when he walks but feel safe. Reviewed all our findings from today. Plan for discharge home but with strict return precautions and follow-up. Patient also given ENT referral for follow-up for vertigo symptoms as well. Time: 15:44 Vital Signs Vital signs: Vital Signs - 8 hr 02/13/22 11:24 02/13/22 11:46 02/13/22 11:47 Temperature 97.1 F L Pulse Rate 86 84 82 Respiratory Rate 15 20 14 Blood Pressure 137/86 140/82 Pulse Oximetry 96 95 93 02/13/22 11:53 02/13/22 12:00 02/13/22 12:30 Temperature Pulse Rate 81 77 75 Respiratory Rate 11 L 14 15 Blood Pressure 106/71 107/72 Pulse Oximetry 96 95 95 02/13/22 13:00 02/13/22 13:28 02/13/22 13:30 Temperature Pulse Rate 74 76 79 Respiratory Rate 13 14 14 Blood Pressure 115/75 123/85 126/88 Pulse Oximetry 93 95 95 02/13/22 14:00 02/13/22 14:30 02/13/22 15:00 Temperature Pulse Rate 69 68 74 Respiratory Rate 16 17 17 Blood Pressure 120/62 114/73 128/73 Pulse Oximetry 94 94 94 02/13/22 15:30 Temperature Pulse Rate 73 Respiratory Rate 21 Blood Pressure 123/68 Pulse Oximetry 96 MDM - Dizziness Lab Data Result diagrams: 02/13/22 11:40 02/13/22 11:40 Labs: Lab Results 02/13/22 02/13/22 02/13/22 Range/Units 11:40 11:40 11:40 WBC 7.1 (4.5-11.0) X10^3/uL RBC 5.55 (4.5-5.9) X10^6/uL Hgb 15.7 (13.5-17.5) g/dL Hct 45.3 (41-53) % MCV 81.7 (80-100) fL MCH 28.3 (26-34) PG MCHC 34.7 (30-36) % RDW 14.7 (11.6-14.8) % Plt Count 233 (150-400) X10^3/uL Neut % (Auto) 65.3 (50-75) % Lymph % (Auto) 25.1 (25-40) % [place] % (Auto) 7.5 (3-14) % Eos % (Auto) 1.7 L (2-4) % Baso % (Auto) 0.4 (0-2) % Neut # (Auto) 4600 (6465-2354) /uL Lymph # (Auto) 1800 (0324-6297) /uL [place] # (Auto) 500 (0-900) /uL Eos # (Auto) 100 (0-450) /uL Baso # (Auto) 0 (0-100) /uL PT 11.1 (10.1-12.7) SECONDS INR 1.0 (0.9-1.3) APTT 32 (26.4-36.2) SECONDS Sodium 140 (137-145) mmol/L Potassium 3.8 (3.4-5.1) mmol/L Chloride 104 (98-107) mmol/L Carbon Dioxide 24 (22-32) mmol/L BUN 17 (9-20) mg/dL Creatinine 0.84 (0.66-1.25) mg/dL Estimated GFR > 60.0 (>60) mL/min BUN/Creatinine Ratio 20.2 (6-22) Glucose 144 H (70-100) mg/dL Calcium 9.8 (8.4-10.2) mg/dL Magnesium 2.0 (1.6-2.3) mg/dL Total Bilirubin 0.8 (0.2-1.3) mg/dL AST 40 (17-59) IU/L ALT 66 H (<50) IU/L Alkaline Phosphatase 86 (38-126) U/L Total Creatine Kinase 124 (55-170) U/L CK-MB (CK-2) 2.31 (<2.37) ng/mL CK-MB (CK-2) Rel Index 1.9 (1.5-5.0) % Troponin I < 0.012 (0.01-0.034) ng/mL Total Protein 8.0 (6.3-8.2) g/dL Albumin 4.9 (3.5-5.0) g/dL Globulin 3.1 (1.7-4.1) g/dL Albumin/Globulin Ratio 1.6 (1.0-2.8) Lipase 52 (23-300) U/L Imaging Data CT scan - head: Radiologist's Impression: Myrna Malone??46??M??1975 ? Allergy/Adv: Penicillins Close Head/Neck CTA (Signed) Davey Meléndez - 02/13/[address] (Signed) Maninder Kelsey - 02/13/22 Chest X-Ray (Signed) Maninder Kelsey - 02/13/22 Telemetry Strips 01/17/22 Shoulder MRI (Signed) Tereza Wright - 10/30/21 Abdomen/Pelvis CT (Signed) Lew Rosa - 09/02/21 [facility] [address] CT Scan Report Signed Patient: Myrna Malone MR#: [id number] : 1975 Acct:[id number] Age/Sex: 46 / M Date of Service: 02/13/22 Loc: ED Accession Number: [id number] ?? Procedure: CT head/brain wo con Ordering Provider: Marly Palma D.O. PROCEDURE:? CT HEAD/BRAIN WO CON ? INDICATIONS:? vertigo, headache ? TECHNIQUE:? Noncontrast 4.5 mm thick angled axial sections acquired from the foramen magnum to the vertex, with coronal and sagittal reformats.? For radiation dose reduction, the following was used:? automated exposure control, adjustment of mA and/or kV according to patient size.? ? COMPARISON:? None. ? FINDINGS:? Image quality:? Excellent.? ? CSF spaces:? Basal cisterns are patent.? No extra-axial fluid collections.? Ventricles are normal in size and shape.? ? Brain:? No midline shift.? No intracranial masses or hemorrhage.? Tyler-white matter interface is normal.? ? Skull and face:? Calvarium and visualized facial bones are intact, without suspicious lesions.? ? Sinuses:? Visualized sinuses and mastoids are clear.? ? IMPRESSION:? No evidence of acute intracranial process. ? ? Dictated by: Maninder Kelsey M.D. on 02/13/2022 at 13:34 ? ? Approved by: Maninder Kelsey M.D. on 02/13/2022 at 13:35? CTA - brain/neck: Radiologist's Impression: Myrna Malone??46??M??1975 ? Allergy/Adv: Penicillins Close Head/Neck CTA (Signed) Davey Meléndez - 02/13/[address] (Signed) Maninder Kelsey - 02/13/22 Chest X-Ray (Signed) Maninder Kelsey - 02/13/22 Telemetry Strips 01/17/22 Shoulder MRI (Signed) Tereza Wright - 10/30/21 Abdomen/Pelvis CT (Signed) Lew Rosa - 09/02/21 [facility] [address] CT Scan Report Signed Patient: Myrna Malone MR#: [id number] : 1975 Acct:[id number] Age/Sex: 46 / M Date of Service: 02/13/22 Loc: ED Accession Number: [id number] ?? Procedure: CT angio head and neck Ordering Provider: Mank,Marly C D.O. PROCEDURE:? CT ANGIO HEAD AND NECK ? INDICATIONS:? vertigo, headache, left side ? TECHNIQUE:? Noncontrast images were performed earlier in the day and not repeated.? ? After the administration of intravenous contrast, 1 mm thick sections acquired from the aortic arch through the [place] of [place].? Post-contrast 4.5 mm thick sections then re- acquired from the foramen magnum to the vertex.? 3-dimensional gahbqmy-irvbeluyx-gsoucgrnkq (MIP) and/or volume rendering reformats were acquired of the central intracranial vasculature and neck separately. ? COMPARISON:? [facility], CT, CT HEAD/BRAIN WO CON, 02/13/2022, 13:16. ? FINDINGS:? Image quality:? Excellent.? ? BRAIN:? CSF spaces:? Ventricles are normal in size and shape.? Basal cisterns are patent.? No extra-axial fluid collections.? ? Brain:? No midline shift.? No intracranial bleeds or masses.? Tyler-white matter interface appears intact.? ? Skull and face:? Calvarium and facial bones appear intact, without suspicious lesions.? Orbits appear normal.? ? Sinuses:? Sinuses and mastoids are clear.? ? HEAD CT ANGIOGRAPHY:? Anterior circulation:? Intracranial internal carotid arteries are normal in size and flow.? The flow within the paired anterior cerebral arteries is normal and symmetric.? The flow within the middle cerebral arteries is normal and symmetric.? The anterior communicating artery is seen.? No aneurysms are seen.? ? Posterior circulation:? The left V4 segment largely terminates in the left posterior inferior cerebellar artery.? The right V4 segment is within normal limits.? There is a normal appearing basilar artery.? Flow within the posterior cerebral arteries is normal and symmetric.? No aneurysms are seen.? ? NECK CT ANGIOGRAPHY:? Carotid system:? The great vessels demonstrate a conventional anatomy as they arise from the aortic arch.? The origins of the common carotid arteries appear patent.? The common carotid arteries demonstrate normal caliber and courses.? The bifurcation regions are both widely patent.? The internal carotid arteries demonstrate normal calibers and courses.? ? Posterior circulation:? The origins of the vertebral arteries both appear widely patent.? The more superior extracranial portions of both vertebral arteries also demonstrate normal courses and calibers.? The right vertebral artery is dominant to the left. ? Soft tissues:? Visualized neck soft tissues demonstrate no suspicious abnormalities.? ? Bones:? No suspicious bony lesions.? Visualized cervical spine appears normally aligned.? IMPRESSION:? No hemodynamically significant stenosis can be seen within the intracranial circulation or within the arteries of the neck. ? ? ? Incidental note is made of: Right vertebral artery dominant to the left ? Any quantitative measurements of stenosis were performed using NASCET criteria.? ? ? Dictated by: Davey Meléndez M.D. on 02/13/2022 at 12:44 ? ? Approved by: Davey Meléndez M.D. on 02/13/2022 at 12:46? ECG Data Attestation: I personally reviewed and interpreted this ECG as follows: Prior ECG tracings: not available for review Interpretation: Sinus rhythm rate of 79, CO 130, QRS of 100 and QTC of 456. No acute ST elevation or depression noted. No priors for comparison. MDM Narrative Medical decision making narrative: This is a 46-year-old male who comes in with complaint vertigo followed by headache, which has been persistent and progressive. Patient did not have a sudden onset worst headache of his life but has been worsening over the past [address] and CT angio in lab work do not show acute changes illicit exact cause. Patient has not had similar symptoms in the past he is worsened with movement of his eyes and movement of head. He was given medication for headache as well as vertigo symptoms and on re-evaluation. Discharge Plan Departure Patient Disposition: Home Clinical Impression: Vertigo Instructions: DI for Vertigo Activity Restrictions/Additional Instructions: Follow-up with your physician for recheck. There are many causes of vertigo, no clear emergent changes are noted today. If you have persistent symptoms you can follow-up with ENT for further evaluation. Referral is included below. You may take meclizine 1-2 tablets every 8 hours as needed for vertigo symptoms. You can meloxicam 1 tablet every 12 hours as needed. You may take Tylenol with this medication, he can take up to a 1000 mg every 8 hours as needed. Prescription sent to [facility] in [place]. Please return for fevers, rapidly worsening headaches vomiting vision changes, new or worsening numbness, tingling weakness, weakness of your arm, leg, facial droop, worsening vertigo symptoms are very unable to ambulate safely or other new or concerning symptoms. Prescriptions: No Action atorvastatin 20 mg tablet 20 mg PO DAILY 0RF celecoxib 100 mg capsule 100 mg PO DAILY 0RF lisinopril 40 mg tablet 40 mg PO DAILY 0RF duloxetine 30 mg capsule,delayed release(DR/EC) 30 mg PO DAILY 0RF duloxetine 60 mg capsule,delayed release(DR/EC) 60 mg PO DAILY 0RF Janumet 50-1,000 mg tablet 50 - 1,000 tab PO BID 0RF Rx Instructions: With Meals topiramate 25 mg tablet 50 mg PO BID 0RF Rx Instructions: Take 2 capsule by oral route 2 times every day in the morning and evening oxycodone 5 mg Tablet 5 mg PO Q4H PRN (Reason: Pain, Moderate (4-6)) Qty: 40 0RF hydroxyzine pamoate 25 mg Capsule 25 mg PO Q6HR PRN (Reason: Spasms) Qty: 30 0RF oxycodone 5 mg Tablet 5 mg PO Q4HR PRN (Reason: Pain, Moderate (4-6)) Qty: 40 0RF hydroxyzine pamoate 25 mg Capsule 25 mg PO Q6HR PRN (Reason: Spasms) Qty: 30 0RF Referrals: Jonah Mir MD [Physician] - Rob Lopez DO [Primary Care Provider] -
--- NOTE | 2022-02-13 13:11 | DI.CT.S_ITS ---
PROCEDURE: CT HEAD/BRAIN WO CON INDICATIONS: vertigo, headache TECHNIQUE: Noncontrast 4.5 mm thick angled axial sections acquired from the foramen magnum to the vertex, with coronal and sagittal reformats. For radiation dose reduction, the following was used: automated exposure control, adjustment of mA and/or kV according to patient size. COMPARISON: None. FINDINGS: Image quality: Excellent. CSF spaces: Basal cisterns are patent. No extra-axial fluid collections. Ventricles are normal in size and shape. Brain: No midline shift. No intracranial masses or hemorrhage. Tyler-white matter interface is normal. Skull and face: Calvarium and visualized facial bones are intact, without suspicious lesions. Sinuses: Visualized sinuses and mastoids are clear. IMPRESSION: No evidence of acute intracranial process. Dictated by: Maninder Kelsey M.D. on 02/13/2022 at 13:34 Approved by: Maninder Kelsey M.D. on 02/13/2022 at 13:35
--- NOTE | 2022-02-13 13:11 | DI.CT.S_ITS ---
PROCEDURE: CT ANGIO HEAD AND NECK INDICATIONS: vertigo, headache, left side TECHNIQUE: Noncontrast images were performed earlier in the day and not repeated. After the administration of intravenous contrast, 1 mm thick sections acquired from the aortic arch through the [place] of [place]. Post-contrast 4.5 mm thick sections then re-acquired from the foramen magnum to the vertex. 3-dimensional zagnlzo-qccjvaaum-lekqpyfsqa (MIP) and/or volume rendering reformats were acquired of the central intracranial vasculature and neck separately. COMPARISON: [facility], CT, CT HEAD/BRAIN WO CON, 02/13/2022, 13:16. FINDINGS: Image quality: Excellent. BRAIN: CSF spaces: Ventricles are normal in size and shape. Basal cisterns are patent. No extra-axial fluid collections. Brain: No midline shift. No intracranial bleeds or masses. Tyler-white matter interface appears intact. Skull and face: Calvarium and facial bones appear intact, without suspicious lesions. Orbits appear normal. Sinuses: Sinuses and mastoids are clear. HEAD CT ANGIOGRAPHY: Anterior circulation: Intracranial internal carotid arteries are normal in size and flow. The flow within the paired anterior cerebral arteries is normal and symmetric. The flow within the middle cerebral arteries is normal and symmetric. The anterior communicating artery is seen. No aneurysms are seen. Posterior circulation: The left V4 segment largely terminates in the left posterior inferior cerebellar artery. The right V4 segment is within normal limits. There is a normal appearing basilar artery. Flow within the posterior cerebral arteries is normal and symmetric. No aneurysms are seen. NECK CT ANGIOGRAPHY: Carotid system: The great vessels demonstrate a conventional anatomy as they arise from the aortic arch. The origins of the common carotid arteries appear patent. The common carotid arteries demonstrate normal caliber and courses. The bifurcation regions are both widely patent. The internal carotid arteries demonstrate normal calibers and courses. Posterior circulation: The origins of the vertebral arteries both appear widely patent. The more superior extracranial portions of both vertebral arteries also demonstrate normal courses and calibers. The right vertebral artery is dominant to the left. Soft tissues: Visualized neck soft tissues demonstrate no suspicious abnormalities. Bones: No suspicious bony lesions. Visualized cervical spine appears normally aligned. IMPRESSION: No hemodynamically significant stenosis can be seen within the intracranial circulation or within the arteries of the neck. Incidental note is made of: Right vertebral artery dominant to the left Any quantitative measurements of stenosis were performed using NASCET criteria. Dictated by: Davey Meléndez M.D. on 02/13/2022 at 12:44 Approved by: Davey Meléndez M.D. on 02/13/2022 at 12:46
[2022-02-13] MEDS: MECLIZINE HCL 12.5 MG TABLET 50 MG PO (13:27)
[2022-02-13] MEDS: MORPHINE 4 MG/ML INJ IV (13:27)
[2022-02-13] MEDS: ONDANSETRON 4 MG/2 ML INJ IV (13:27)
[2022-02-13] MEDS: METOCLOPRAMIDE 10 MG/2 ML INJ IV (14:49)
[2022-02-13] MEDS: KETOROLAC 30 MG/ML VIAL IV (14:49)
[2022-02-13] MEDS: SODIUM CHLORIDE 0.9% 1,000 ML 1000 ML IV (14:50)
--- NOTE | 2022-02-13 15:46 | PC.NURSE ---
ambulatory without assistance but holding hands out for balance, a little wobbly but not falling. a little more dizzy standing but no syncope
== END 2022-02-13 16:10 | disposition home or self-care (01) ==
PROVIDERS: Emergency Provider Emergency Medicine; PCP Family Medicine
DX: R42 Dizziness and giddiness (principal); R51.9 Headache, unspecified; R20.2 Paresthesia of skin; R11.2 Nausea with vomiting, unspecified
CPT/HCPCS: 36415; 70450; 70496; 70498; 71045; 80053; 82550; 82553; 83690; 83735; 84484; 85025; 85610; 85730; 93005; 96374; 96375; 99284; 99285; J1885; J2270; J2405; J2765; Q9967

== ENCOUNTER → 2022-02-21 10:34 | Outpatient (CLI) | payer OTHER, SELFPAY ==
[2022-02-21 13:17] LABS: COVID19 -Nasal RAPID Negative (Negative)
== END ==
PROVIDERS: PCP Family Medicine; Visit Provider Family Medicine Sleep Medicine
DX: Z20.822 Contact with and (suspected) exposure to COVID-19 (principal)
CPT/HCPCS: 87635; C9803

== ENCOUNTER 2022-02-24 13:54 | Day surgery (SDC) | payer OTHER, SELFPAY ==
[2022-02-24] VITALS (7 sets, daily range): BP systolic 127–146; BP diastolic 88–100; PULSE 65–78; RESP 12–17; TEMP 36.5–36.6; O2SAT 95–98; BMI 30.9
--- NOTE | 2022-02-24 | PATH_ITS ---
[facility] Accession Number: [id number] . 01 Material submitted: . PART A: duodenum - DUODENUM PART B: stomach - ANTRUM PART C: colon - RANDOM COLON PART D: rectum - RECTAL POLYP . 02 Diagnosis: A. Duodenum: Duodenal mucosa with no diagnostic abnormality. Negative for active inflammation, features of sprue, dysplasia, or malignancy. . B. Antrum, Biopsy: Gastric antral mucosa with mild chronic inflammation and features of reactive gastropathy. Negative for Helicobacter organisms by immunohistochemistry. Negative for intestinal metaplasia. Negative for dysplasia or malignancy. . C. Random Colon: Colonic mucosa with no diagnostic abnormality. Negative for active, chronic, and microscopic colitis. Negative for dysplasia and malignancy. . D. Rectal Polyp: Hyperplastic polyp. [facility] 02/27/2022 1326 Local . 02 Electronically signed: . Preeti Anne MD, Pathologist NPI- [id number] . 01 Gross description: . Part A: DUODENUM: Received in formalin are 3 fragment(s) of tripathi, soft tissue measuring 0.3 x 0.2 x 0.2 cm to 0.2 x 0.1 x 0.1 cm submitted entirely in 1 cassette(s) Part B: ANTRUM: Received in formalin is 1 fragment(s) of tripathi, soft tissue measuring 0.2 x 0.1 x 0.1 cm submitted entirely in 1 cassette(s) Part C: RANDOM COLON: Received in formalin are multiple fragment(s) of tripathi, soft tissue measuring 1.2 x 0.1 x 0.1 cm in aggregate submitted entirely in 1 cassette(s) Part D: RECTAL POLYP: Received in formalin is 1 fragment(s) of tripathi, soft tissue measuring 0.2 x 0.2 x 0.1 cm submitted entirely in 1 cassette(s) /[facility] 02/25/2022 1046 Local . 02 Microscopic: . B. An immunohistochemical stain is performed to evaluate for Helicobacter organisms and is negative. The control stain showed appropriate reactivity. . * This test was developed and its performance characteristics determined by [facility]. It has not been cleared or approved by the U.S. Food and Drug Administration. The FDA has determined that such clearance or approval is not necessary. This test is used for clinical purposes. It should not be regarded as investigational or for research. . 02 Pathologist provided ICD-10: K21.9, R19.7, K63.5 . 02 CPT . 514305, 268511, 344965, 087728, V42050 Specimen Comment: A courtesy copy of this report has been sent to [facility] Pathology Performed at: 01 [facility] Cytology [address] [id number] MD Luis Manuel Jones MD Phone: [phone] Performed at: 02 [facility] [address] [place] [id number] MD Shari Dotson MD Phone: [phone]
[2022-02-24] MEDS: SODIUM CHLORIDE 0.9% 1,000 ML 84 ML IV (14:25)
--- NOTE | 2022-02-24 14:56 | PM.HP.1 ---
History of Present Illness History of Present Illness Date Patient Seen: 02/24/22 Time Patient Seen: 14:56 Chief complaint: SDC Narrative: I reviewed my note from February 18. No significant changes. Patient History Medical History Arthritis COVID (~11/2021) Degenerative joint disease Depression Diabetes Fracture Headache, migraine Hepatic steatosis Hyperlipidemia Hypertension Traumatic complete tear of right rotator cuff Surgical History History of hernia repair History of vasectomy Family & Social History Social History: household members children Tobacco & Substance use: Smoking Status Never smoker alcohol intake frequency holiday/special occasion Substance Use Type does not use Meds Home Medications and Allergies Home Medications Medication Instructions Recorded Confirmed Type atorvastatin 20 mg tablet 20 mg PO DAILY 01/15/22 02/24/22 History celecoxib 100 mg capsule 100 mg PO DAILY 01/15/22 02/24/22 History duloxetine 30 mg capsule,delayed 30 mg PO DAILY 01/15/22 02/24/22 History release duloxetine 60 mg capsule,delayed 60 mg PO DAILY 01/15/22 02/24/22 History release lisinopril 40 mg tablet 40 mg PO DAILY 01/15/22 02/24/22 History sitagliptin 50 mg-metformin 1,000 50 - 1,000 tab PO BID 01/15/22 02/24/22 History mg tablet (Janumet) topiramate 25 mg tablet 50 mg PO BID 01/15/22 02/24/22 History hydroxyzine pamoate 25 mg capsule 25 mg PO Q6HR PRN #30 cap 01/17/22 02/24/22 Rx Allergies Allergy/AdvReac Type Severity Reaction Status Date / Time Penicillins Allergy Mild Rash Verified 02/21/22 14:44 Review of Systems Review of Systems ROS: Yes All systems reviewed with the patient and are negative except as otherwise documented Exam Vital Signs (past 8 hours): - 02/24/22 14:09 Temperature 98 F Pulse Rate 78 Respiratory Rate 16 Blood Pressure 143/89 H Pulse Oximetry 98 Oxygen Delivery Method Room Air Const General: cooperative and comfortable Orientation: alert HENMT Head: normocephalic Ears: external ears normal Nose: external nose normal Face and sinus: normal facial exam Mouth: oral mucosae normal Eyes General: appearance normal, both eyes and all related structures Neck Neck: normal visual inspection Chest Chest: normal inspection of the chest Resp Effort & Inspection: normal respiratory effort Cardio Rate: regular rate GI Inspection: normal to inspection Skin General: no rashes or lesions noted and No jaundice Neuro General: patient alert and moves all extremities Cognition: normal cognition Speech: speech normal Extrem General: no pedal edema Psych Appearance: grossly normal Assessment & Plan Assessment & Plan narrative: 46-year-old male with recurrence of significant reflux symptoms despite prior Jing fundoplication. He has chronic diarrhea as well. He has rectal bleeding intermittently and rectal fullness. EGD and colonoscopy are pursued today. Time Spent With Patient Critical Care time: I spent a total of [] minutes of critical care time on this patient's care today; this time is exclusive of procedural time.
--- NOTE | 2022-02-24 14:57 | PM.PREOP ---
Pre-operative Note COVID-19 COVID-19 status: Negative Result date/Date tested (Pos, Neg/Pending): 02/21/22 Criteria for continued procedure: Possibility delay results in more complex future surgery or treatment Interval Note History & Physical reviewed/Exam performed by Physician: Yes Changes to H&P: No ASA Class (for procedural sedation): II
--- NOTE | 2022-02-24 16:05 | PM.OP.EC ---
Operative Date/Time/Diagnoses Date of procedure: 02/24/22 Time of procedure: 16:05 Pre-op diagnosis: Recurrence of GERD despite Jing fundoplication, chronic diarrhea, rectal fullness Post-op diagnosis: same Procedure & Clinicians Study performed: EGD with biopsies and colonoscopy with biopsies Same procedure as scheduled: Yes Indications: Recurrence of GERD despite prior Jing fundoplication, chronic diarrhea, rectal fullness Surgeon: Pola Dunbar Procedure Notes SCOAP/Timeout: Done Procedure in detail: After the risks and benefits were explained, written and verbal informed consent was obtained. The patient was brought into the procedure room and placed into the left lateral decubitus position. Please see nurse language and literature division chair notes for sedation details. The scope was introduced into the mouth through the bite block and advanced under direct visualization to the 2nd portion of the duodenum. The scope was slowly withdrawn carefully examining the mucosa for any defects or lesions. Retroflexed views were accomplished in the stomach. The stomach was decompressed, the scope was then removed from the patient who tolerated the procedure well. The patient was then turned around a digital rectal examination accomplished. Mild internal hemorrhoids were noted. No significant additional pathology appreciated. The scope was introduced into the rectum and advanced to the cecum as identified by the appendiceal orifice and ileocecal valve. The scope was advanced up into the terminal ileum. The scope was then slowly withdrawn to carefully examine the mucosa for any defects or lesions. Retroflexed views were accomplished in the rectum colon was decompressed the scope removed from the patient who tolerated the procedure well. Adult colonoscope Bowel prep adequate Scope withdrawal time: 11 minutes Sedation minutes: 34 Complications: none Impression: 1. Duodenum: This appeared visually unremarkable from the bulb through the 2nd portion with the exception of some scattered subtle erosive features in the proximal duodenum. D2 biopsies were acquired for exclusion of sprue. 2. Stomach: Patient had some erosive features in the antrum and pre-pyloric region. No ulcers no mass lesions no outlet obstruction. Biopsies were taken from the eroded areas for exclusion of Helicobacter or other underlying histopathology. Retroflexed views disclosed prior Jing fundoplication and the wrap appeared to be intact. 3. Esophagus: The squamocolumnar junction generally correlated with the top of the gastric folds. The GE junction correlated with the location of the wrap. There was no suggestion of any obvious slippage. There was no evidence of any active esophagitis. The remainder of the esophagus was visually unremarkable. 4. Colon: Patient had some mild diverticulosis in the sigmoid. There was a diminutive 4-5 mm polyp in the rectum removed with cold forceps. I did not appreciate any evidence of proctitis nor any colitis throughout. Random colon biopsies were taken for exclusion of microscopic colitis. 5. Terminal ileum: This appeared visually normal. Endoscopic diagnosis 1. Erosive gastro-duodenopathy 2. Intact prior Jing fundoplication 3. Mild diverticulosis 4. Grade 1 internal hemorrhoids 5. Rectal polyp Post-procedure Plan for aftercare: 1. Await histopathology. 2. Surveillance colonoscopy will be contingent on histology findings. 3. Continue trial of anti-reflux therapy. 4. Follow-up GI clinic in about 6 weeks for progress report. Disposition: PACU
== END 2022-02-24 16:50 | disposition home or self-care (01) ==
PROVIDERS: PCP Family Medicine; Referring Provider Internal Medicine Gastroenterology; Visit Provider Internal Medicine Gastroenterology
PROC: 0DJ08ZZ Inspection of Upper Intestinal Tract, Via Natural or Artificial Opening Endoscopic (ICD-10-PCS; CPT 43235; principal; 2022-02-24 15:00)
PROC: 0DJD8ZZ Inspection of Lower Intestinal Tract, Via Natural or Artificial Opening Endoscopic (ICD-10-PCS; CPT 45378; 2022-02-24 15:00)
DX: K52.9 Noninfective gastroenteritis and colitis, unspecified (principal); K21.9 Gastro-esophageal reflux disease without esophagitis; Z98.890 Other specified postprocedural states; I10 Essential (primary) hypertension; E11.9 Type 2 diabetes mellitus without complications; Z79.84 Long term (current) use of oral hypoglycemic drugs; K57.30 Diverticulosis of large intestine without perforation or abscess without bleeding; K64.0 First degree hemorrhoids; K29.50 Unspecified chronic gastritis without bleeding; K62.1 Rectal polyp
CPT/HCPCS: 45380; 43239; 82962; J2704

== ENCOUNTER → 2022-07-10 18:47 | Outpatient (CLI) | payer OTHER, SELFPAY ==
--- NOTE | 2022-07-10 18:49 | DI.MRI.S_ITS ---
PROCEDURE: MR LUMBAR SPINE WO CON INDICATIONS: Low back pain, unspecified TECHNIQUE: Noncontrast sagittal T1 spin echo and T2 fast echo, sagittal STIR, and T2 fast spin echo through the lumbar spine. In cases with scoliosis, additional coronal T2 fast spin echo may be performed. COMPARISON: None. FINDINGS: Image quality: Excellent. Alignment and Curvature: Normal lumbar vertebral body height and alignment. Bone Marrow: No suspicious focal marrow signal abnormality or bone marrow edema. Spinal Cord: Conus medullaris terminates at the normal level. Visualized cord demonstrates normal signal and size. Regional Soft Tissues: No paravertebral masses. T12-L1: Normal appearance. L1-L2: Normal appearance. L2-L3: Normal appearance. L3-L4: Normal appearance. L4-L5: Normal appearance. L5-S1: Normal appearance. IMPRESSION: No spinal canal stenosis, neural foraminal stenosis, or evidence of focal nerve root impingement. No significant degenerative changes or abnormality to explain pain symptoms. Dictated by: Bhupinder Thornton M.D. on 07/11/2022 at 9:53 Approved by: Bhupinder Thornton M.D. on 07/11/2022 at 9:55
== END ==
PROVIDERS: PCP Family Medicine; Referring Provider Family Medicine; Visit Provider Family Medicine
DX: M54.50 Low back pain, unspecified (principal)
CPT/HCPCS: 72148

== ENCOUNTER → 2022-08-22 07:36 | Outpatient (CLI) | payer OTHER, SELFPAY ==
--- NOTE | 2022-08-22 07:37 | DI.MRI.S_ITS ---
PROCEDURE: MR LUMBAR SPINE WO/W CON INDICATIONS: Unspecified visual disturbance TECHNIQUE: Noncontrast sagittal T1 spin echo and T2 fast spin echo, sagittal STIR, axial T1 and T2 fast spin echo through the lumbar spine. In cases with scoliosis, additional coronal T2 fast spin echo may be performed. After the administration of contrast, sagittal and axial T1 spin echo with fat saturation through the lumbar spine. COMPARISON: None. FINDINGS: Image quality: Excellent. Alignment and curvature: Normal lumbar vertebral body height and alignment. Marrow: Marrow is of normal overall signal. No acute vertebral body compression fractures. No suspicious marrow enhancement. Spinal cord: Normal position and appearance of the conus. No abnormal signal in the distal thoracic cord or in the conus. Cauda equina nerve roots unremarkable. No abnormal intradural enhancement. Paraspinous soft tissues: No paravertebral masses or abnormal enhancement. IMPRESSION: Essentially unremarkable MRI of the lumbar spine. No acute finding or abnormal enhancement. Dictated by: Bhupinder Thornton M.D. on 08/22/2022 at 11:08 Approved by: Bhupinder Thornton M.D. on 08/22/2022 at 11:10
--- NOTE | 2022-08-22 07:37 | DI.MRI.S_ITS ---
PROCEDURE: MR THORACIC SPINE WO/W CON INDICATIONS: Unspecified visual disturbance TECHNIQUE: Noncontrast sagittal T1 spin echo and T2 fast spin echo, sagittal STIR, axial T1 and T2 fast spin echo through the thoracic spine. After the administration of contrast, axial and sagittal T1 spin echo with fat saturation through the thoracic spine. COMPARISON: [facility], MR, MR LUMBAR SPINE WO/W CON, 08/22/2022, 8:01. [facility], MR, MR HEAD/BRAIN WO/W CON, 08/22/2022, 8:01. [facility], MR, MR CERVICAL SPINE WO/W CON, 08/22/2022, 8:01. [facility], MR, MR LUMBAR SPINE WO CON, 07/10/2022, 19:26. FINDINGS: Image quality: This examination is limited by involuntary motion artifact. Alignment and curvature: There is normal bony alignment. Marrow: Marrow is of normal overall signal. No acute vertebral body compression fractures. Spinal cord: Visualized spinal cord is of normal signal and size, without abnormal enhancement. Paraspinous soft tissues: No paravertebral masses or abnormal enhancement. Miscellaneous: Central canal and foramina appear widely patent at all scanned levels. IMPRESSION: Normal thoracic spine MRI. No abnormal enhancement is seen. Dictated by: Davey Meléndez M.D. on 08/22/2022 at 9:27 Approved by: Davey Meléndez M.D. on 08/22/2022 at 9:28
--- NOTE | 2022-08-22 07:37 | DI.MRI.S_ITS ---
PROCEDURE: MR HEAD/BRAIN WO/W CON INDICATIONS: Unspecified visual disturbance TECHNIQUE: Noncontrast axial T1 spin echo, axial T2 fast spin echo, sagittal and axial FLAIR, coronal T2 fast spin echo, axial gradient echo, axial diffusion and ADC through the brain. After the administration of contrast, axial and coronal and sagittal 3D VIBE or T1 spin echo with fat saturation through the brain. COMPARISON: [facility], CT, CT ANGIO HEAD AND NECK, 02/13/2022, 13:16. [facility], CT, CT HEAD/BRAIN WO CON, 02/13/2022, 13:16. FINDINGS: Image quality: This examination is limited by involuntary motion artifact. CSF Spaces: Basal cisterns are patent. No extra-axial fluid collections. Ventricles are normal in size and shape. Brain: No midline shift. No intracranial bleeds or masses. No abnormal intracranial enhancement. The brainstem appears normal. Diffusion-weighted images demonstrate no acute ischemic insults. No chronic ischemic insults. Normal intravascular flow voids are present. Skull and face: Calvarial marrow is normal in signal. In this patient with this given history, scrutiny is given to the orbits. No significant abnormality the orbits or globes can be seen to the limits of this standard protocol brain MRI. Sinuses: Sinuses and mastoids appear clear. Mild rightward nasal septal deviation is incidentally noted. IMPRESSION: No imaging explanation is found for this patient's presenting symptoms. No masses or abnormal enhancement can be seen. No findings of acute or subacute infarction can be seen. No orbital abnormality can be seen to the limits of this standard protocol brain MRI. Dictated by: Davey Meléndez M.D. on 08/22/2022 at 9:25 Approved by: Davey Meléndez M.D. on 08/22/2022 at 9:27
--- NOTE | 2022-08-22 07:37 | DI.MRI.S_ITS ---
PROCEDURE: MR CERVICAL SPINE WO/W CON INDICATIONS: Unspecified visual disturbance TECHNIQUE: Noncontrast sagittal T1 spin echo and T2 fast spin echo, sagittal STIR, sagittal PD fast spin echo, foraminal oblique sagittal T2 fast spin echo, axial gradient echo or T2 fast spin echo through the cervical spine. After the administration of contrast, sagittal and axial T1 spin echo with fat saturation through the cervical spine. COMPARISON: None. FINDINGS: Image quality: Excellent. Alignment and curvature: Normal vertebral body height and alignment.. Marrow: No suspicious focal marrow signal abnormality or bone marrow edema. No abnormal enhancement within the vertebral column. Spinal cord: Visualized spinal cord is normal in size, without white matter lesions. No suspicious intramedullary enhancement. No cerebellar tonsillar herniation. Regional soft tissues: No paravertebral masses or suspicious enhancement. IMPRESSION: No cord signal abnormality or abnormal enhancement in the cervical spine. Dictated by: Bhupinder Thornton M.D. on 08/22/2022 at 11:06 Approved by: Bhupinder Thornton M.D. on 08/22/2022 at 11:08
== END ==
PROVIDERS: PCP Family Medicine; Referring Provider Family Medicine; Visit Provider Family Medicine
DX: R51.9 Headache, unspecified (principal); H53.9 Unspecified visual disturbance; M79.606 Pain in leg, unspecified
CPT/HCPCS: 70553; 72156; 72157; 72158; A9579

== ENCOUNTER 2022-12-01 10:15 | Emergency (ER) | payer OTHER, SELFPAY ==
[2022-12-01] VITALS (9 sets, daily range): BP systolic 125–138; BP diastolic 70–89; PULSE 66–87; RESP 16–20; TEMP 36.6; O2SAT 92–98; BMI 30.3
--- NOTE | 2022-12-01 10:54 | DI.MRI.S_ITS ---
PROCEDURE: MR LUMBAR SPINE WO CON INDICATIONS: can't pee back pain TECHNIQUE: Noncontrast sagittal T1 spin echo and T2 fast echo, sagittal STIR, and T2 fast spin echo through the lumbar spine. In cases with scoliosis, additional coronal T2 fast spin echo may be performed. COMPARISON: [facility], MR, MR LUMBAR SPINE WO CON, 07/10/2022, 19:26. FINDINGS: Image quality: Excellent. Alignment and Curvature: There is normal bony alignment. Bone Marrow: Marrow is of normal overall signal. No acute vertebral body compression fractures. Spinal Cord: Conus medullaris terminates at the T12-L1 level. Visualized cord demonstrates normal signal and size. Paraspinous Soft Tissues: No paravertebral masses. T12-L1: Normal appearance. L1-L2: Normal appearance. L2-L3: Normal appearance. L3-L4: Normal appearance. L4-L5: Central disc bulge at L4-5 level is seen new since previous study with mild effacement of thecal sac anteriorly. Mild bilateral neural foraminal narrowing is also noted. L5-S1: Normal appearance. IMPRESSION: 1. No marrow edema. No acute compression fracture or spondylolisthesis. 2. Central disc bulge and bilateral facet arthrosis at L4-5 level with mild central canal stenosis and mild bilateral neural foraminal narrowing. 3. No significant disc bulge, canal stenosis or neural foraminal narrowing is seen in rest of the lumbar spine. Dictated by: Santos Jain M.D. on 12/01/2022 at 12:55 Approved by: Santos Jain M.D. on 12/01/2022 at 13:02
--- NOTE | 2022-12-01 11:04 | ED_ITS ---
HPI - Neuro Symptoms/Deficit General Chief Complaint: Neuro Symptoms/Deficit Stated Complaint: sent by [facility]. slipped t-8 thinks slipped dis Time Seen by Provider: 12/01/22 10:48 Source: patient Mode of arrival: Wheelchair History of Present Illness HPI Narrative: Patient is a 47-year-old male history of diabetes chronic back pain presenting today with worsening back pain difficulty urinating difficulty with erections along left leg weakness. he reports that he had an injury where he slipped and fell while golfing on November 23. Since then he is had difficult time with erections and feels like he is not emptying his bladder all the way. He denies any urinary or stool incontinence. He does have some left leg weakness is at baseline but it seems to be getting a little bit worse. He is had multiple back ablation. A month ago he was seen at [facility] for further neurologic testing he had an EEG and other test specifically for his left leg. He denies any fevers chills. No IVDA. He gets back pain regularly he has medications that usually work he has done lidocaine patches and everything he normally does but his pain is quite out of control. Last night he needed pain medication and alcohol in order to go to sleep On Anticoagulants: No Related Data Home Medications Medication Instructions Recorded Confirmed atorvastatin 20 mg tablet 20 mg PO DAILY 01/15/22 02/24/22 celecoxib 100 mg capsule 100 mg PO DAILY 01/15/22 02/24/22 duloxetine 30 mg capsule,delayed 30 mg PO DAILY 01/15/22 02/24/22 release duloxetine 60 mg capsule,delayed 60 mg PO DAILY 01/15/22 02/24/22 release lisinopril 40 mg tablet 40 mg PO DAILY 01/15/22 02/24/22 sitagliptin phosphate 50 50 - 1,000 tab PO BID 01/15/22 02/24/22 mg-metformin 1,000 mg tablet (Dhaiana) topiramate 25 mg tablet 50 mg PO BID 01/15/22 02/24/22 Previous Rx's Medication Instructions Recorded hydroxyzine pamoate 25 mg capsule 25 mg PO Q6HR PRN Spasms #30 caps 01/17/22 cyclobenzaprine 5 mg tablet 5 mg PO TID PRN muscle spasm #10 12/01/22 tabs hydrocodone 5 mg-acetaminophen 325 1 tab PO Q6H PRN pain #10 tabs 12/01/22 mg tablet prednisone 20 mg tablet 40 mg PO DAILY #10 tabs 12/01/22 Allergies Allergy/AdvReac Type Severity Reaction Status Date / Time Penicillins Allergy Mild Rash Verified 12/01/22 10:33 Review of Systems Hematologic/Lymphatic On Anticoagulants: No Patient History Medical History Arthritis COVID (~11/2021) Degenerative joint disease Depression Diabetes Fracture Headache, migraine Hepatic steatosis Hyperlipidemia Hypertension Traumatic complete tear of right rotator cuff Surgical History History of hernia repair History of vasectomy Social History household members: children Smoking Status: Never smoker Smoking Status: Never smoker alcohol intake frequency: holidays/special occasions only Substance Use Type: does not use Exam Initial Vital Signs Initial Vital Signs: Vital Signs Temperature 97.8 F 12/01/22 10:28 Pulse Rate 87 12/01/22 10:28 Respiratory Rate 20 12/01/22 10:28 Blood Pressure 137/89 12/01/22 10:28 Pulse Oximetry 97 12/01/22 10:28 Oxygen Delivery Method 12/01/22 10:28 GENERAL: Alert 47-year-old male and in no acute distress. HEENT: Head atraumatic,EOMI, pupils reactive, face symmetric, moist mucous membranes CARDIOVASCULAR: Regular rate and rhythm without murmurs, rubs or gallops. RESPIRATORY: Breath sounds equal bilaterally, no wheezes rales or rhonchi. ABDOMEN: Soft, nontender. Normoactive bowel sounds all 4 quadrants. No guarding or rebound. BACK: Tender midline L1-L2 area no step-off EXTREMITIES: Normal range of motion, no clubbing or edema. Neurovascularly intact NEUROLOGICAL: Alert and oriented x4. Left leg is weak but he is able to lift up off the gurney. Decreased sensation in the left leg starting just inferior to the knee. SKIN: Warm, dry, no laceration, no petechiae, no rashes or lesions. Course Orders Ordered: ED Orders 12/01/22 10:54 MR lumbar spine wo con Stat 12/01/22 11:16 CBC Auto Diff [Complete Blood Count AUTO DIFF] Stat CMP [Comprehensive Metabolic Panel] Stat Discontinued Medications Hydrocodone Bitart/Acetaminophen (Hydrocodone/Acet 5/325 Tablet) 2 tab PO NOW ONE Stop: 12/01/22 17:23 Last Admin: 12/01/22 17:25 Dose: 2 tab Documented By: MARNI Hydromorphone HCl (Hydromorphone 1 Mg Inj) 1 mg IV NOW ONE Stop: 12/01/22 11:01 Last Admin: 12/01/22 11:08 Dose: 1 mg Documented By: BRANDON Hydromorphone HCl (Hydromorphone 1 Mg Inj) 1 mg IV NOW ONE Stop: 12/01/22 13:19 Last Admin: 12/01/22 13:21 Dose: 1 mg Documented By: JULIO Hydromorphone HCl (Hydromorphone 0.5 Mg Inj) 0.5 mg IV NOW ONE Stop: 12/01/22 15:12 Last Admin: 12/01/22 15:15 Dose: 0.5 mg Documented By: BRANDON Lidocaine HCl (Lidocaine 2% (Glydo) 6 Ml Gel) 6 ml TOP NOW ONE Stop: 12/01/22 15:13 Last Admin: 12/01/22 15:15 Dose: 6 ml Documented By: BRANDON Lorazepam (Lorazepam 2 Mg/Ml Inj) 1 mg IV NOW ONE Stop: 12/01/22 12:13 Last Admin: 12/01/22 12:16 Dose: 1 mg Documented By: BRANDON Vital Signs Vital signs: Vital Signs - 8 hr 12/01/22 13:05 12/01/22 13:06 12/01/22 13:06 Pulse Rate 70 73 Respiratory Rate Blood Pressure 125/70 Pulse Oximetry 94 94 Oxygen Delivery Method 12/01/22 13:30 12/01/22 14:00 12/01/22 17:29 Pulse Rate 74 69 66 Respiratory Rate 17 16 Blood Pressure 138/72 Pulse Oximetry 94 92 98 Oxygen Delivery Method Room Air Room Air MDM - Neuro Symptoms/Deficit Lab Data Result diagrams: 12/01/22 11:16 12/01/22 11:16 Labs: Lab Results 12/01/22 12/01/22 Range/Units 11:16 11:16 WBC 6.7 (4.5-11.0) X10^3/uL RBC 5.32 (4.5-5.9) X10^6/uL Hgb 15.3 (13.5-17.5) g/dL Hct 43.1 (41-53) % MCV 81.0 (80-100) fL MCH 28.7 (26-34) PG MCHC 35.4 (30-36) % RDW 14.8 (11.6-14.8) % Plt Count 205 (150-400) X10^3/uL Neut % (Auto) 66.7 (50-75) % Lymph % (Auto) 24.0 L (25-40) % [place] % (Auto) 7.8 (3-14) % Eos % (Auto) 1.1 L (2-4) % Baso % (Auto) 0.4 (0-2) % Neut # (Auto) 4500 (7864-9679) /uL Lymph # (Auto) 1600 (7773-0876) /uL [place] # (Auto) 500 (0-900) /uL Eos # (Auto) 100 (0-450) /uL Baso # (Auto) 0 (0-100) /uL Sodium 138 (137-145) mmol/L Potassium 3.1 L (3.4-5.1) mmol/L Chloride 99 (98-107) mmol/L Carbon Dioxide 28 (22-32) mmol/L BUN 18 (9-20) mg/dL Creatinine 0.85 (0.66-1.25) mg/dL Estimated GFR > 60 (>60) mL/min BUN/Creatinine Ratio 21.2 (6-22) Glucose 155 H (70-100) mg/dL Calcium 9.1 (8.4-10.2) mg/dL Total Bilirubin 0.8 (0.2-1.3) mg/dL AST 39 (17-59) IU/L ALT 58 H (<50) IU/L Alkaline Phosphatase 88 (38-126) U/L Total Protein 7.9 (6.3-8.2) g/dL Albumin 4.7 (3.5-5.0) g/dL Globulin 3.2 (1.7-4.1) g/dL Albumin/Globulin Ratio 1.5 (1.0-2.8) Urine Dip Bedside Urine Glucose Negative Bedside Urine Bilirubin - Negative Bedside Urine Ketone - Negative Urine Specific [place] 1.025 Bedside Urine Occult Blood - Negative Bedside Urine pH 6.0 Bedside Urine Protein - Negative Bedside Urine Urobilinogen - Negative Bedside Urine Nitrite - Negative Bedside Urine Leukocytes - Negative Esterase Imaging Data MR lumbar: Radiologist's Impression: : Myrna Malone MR#: [id number] : 1975 Acct:[id number] Age/Sex: 47 / M Date of Service: 12/01/22 Loc: ED Accession Number: [id number] ?? Procedure: MR lumbar spine wo con Ordering Provider: Barbi Coyle D.O. PROCEDURE:? MR LUMBAR SPINE WO CON ? INDICATIONS:? can't pee back pain ? TECHNIQUE:? Noncontrast sagittal T1 spin echo and T2 fast echo, sagittal STIR, and T2 fast spin echo through the lumbar spine.? In cases with scoliosis, additional coronal T2 fast spin echo may be performed.? ? COMPARISON:? [facility], , MR LUMBAR SPINE WO CON, 07/10/2022, 19:26. ? FINDINGS:? Image quality:? Excellent.? ? Alignment and Curvature:? There is normal bony alignment.? ? Bone Marrow:? Marrow is of normal overall signal.? No acute vertebral body compression fractures.? ? Spinal Cord:? Conus medullaris terminates at the T12-L1 level.? Visualized cord demonstrates normal signal and size.? ? Paraspinous Soft Tissues:? No paravertebral masses.? ? T12-L1:? Normal appearance.? ? L1-L2:? Normal appearance.? ? L2-L3:? Normal appearance.? ? L3-L4:? Normal appearance.? ? L4-L5:? Central disc bulge at L4-5 level is seen new since previous study with mild effacement of thecal sac anteriorly.? Mild bilateral neural foraminal narrowing is also noted. ? L5-S1:? Normal appearance.? ? ? IMPRESSION:? 1. No marrow edema.? No acute compression fracture or spondylolisthesis. ? 2. Central disc bulge and bilateral facet arthrosis at L4-5 level with mild central canal stenosis and mild bilateral neural foraminal narrowing. ? 3. No significant disc bulge, canal stenosis or neural foraminal narrowing is seen in rest of the lumbar spine. ? ? Dictated by: Santos Jain M.D. on 12/01/2022 at 12:55 ?? MDM Narrative Medical decision making narrative: Patient is a 47-year-old male with chronic back problems and diabetes presenting with worsening back pain along with difficulty urination concern for cauda equina or epidural abscess. Patient is requiring Dilaudid for pain medication in the emergency department. He is afebrile and not complaining of fever no concern for an infection. Blood work is overall reassuring without leukocytosis. There is no evidence of electrolyte abnormality or DKA. Glucose is 155. MRI does show disc bulge at L4-L5 region but no evidence of cauda equina or spinal cord edema. There is a mild central canal stenosis and mild bilateral neural foraminal narrowing. Previous MRI from 08/22/2022, shows no acute finding. So disc L4-L5 is new probably from injury on the but difficult to say. Patient is still having difficulty emptying his bladder. 1414 Dr. Prieto, [facility] patient's symptoms test results has reviewed MRI himself reports that there is a disc but it is unlikely causing his urinary retention. No need for emergent surgery or intervention from a spine perspective. Patient reports that he actually does take Flomax but that his prostate has not been checked in a while. Possible BPH problem although patient is relatively young. 1645-Dr. Chapman spine surgery at [facility] has reviewed MRI concern for persistent urinary retention severe back pain. He agrees that this is likely 2 unrelated problems. Does suggest if needed could MR that thoracic spine however he really sees no evidence that lumbar spine causing urinary retention. Patient has urinary retention and acute on chronic back pain with new disc herniation at L4-L5 region. To orthopedics agree 1 a spine surgeon who state that symptoms are likely unrelated to each other. I was recommended possible MRI of the thoracic spine however patient did have a thoracic spine MRI back in July and there is really no other abnormality by either orthopedic surgeon on the lumbar spine. He is having pain in his lower lumbar area not necessarily his thoracic. Ocampo catheter is placed. I have instructed him to follow-up with [facility] to have his Ocampo catheter removed. There is no evidence of UTI. Possible BPH however patient is quite young at the age of 47 by he is already on tamsulosin. He was not previously on opiates I do not suspect that this is opiate retention problem. Patient updated on patient on test results consult recommendations need for follow-up. He is established with [facility] with Dr. Foley. But will need spine. He understands when to return to the ED. Given medications for his back pain including [place] prednisone and cyclobenzaprine. All of those have previously worked for him. Discharge Plan Departure Patient Disposition: Home Clinical Impression: Herniated disc, Acute urinary retention Instructions: How to Care for Your Ocampo Catheter -- Male, DI for Herniated Disc, DI for Urinary Retention in Men Activity Restrictions/Additional Instructions: *You have been diagnosed with herniated disc L4-L5, urinary retention *What to do: It is thought that you herniated disc and urinary retention are not related. You may have your catheter removed in 3-7 days by primary care provider. Please be sure that you urinate after it has been removed. He will also need to follow-up with orthopedics spine in regards to your back. *Continue to take medications as directed Prednisone 40 mg once a day for 5 days Cyclobenzaprine 5 mg every 8 hours if needed for muscle spasm [place] 1 tablet every 6 hours if needed for severe pain *Follow up with your primary care provider in 2-3 days or call [phone] *Return to ER if you should have worsening pain worsening weakness loss of stool or any new, worsening or concerning symptoms CONTROLLED SUBSTANCE DISCHARGE (Narcotoic/benzodiazepine/Flexeril/Phenergan) 1. You have been prescribed narcotic medications, it does have acetaminophen/Tylenol/paracetamol in it, DO NOT TAKE MORE THAN 4,00mg in 24 hours of Tylenol. TRAMADOL DOES NOT CONTAIN TYLENOL 2. Please understand that we cannot provide further refills of narcotics, benzodiazepines or controlled substances through the ED and her pain management will need to be through your provider. 3. While on these medications you cannot drive or operate heavy machinery. 4. You cannot sign legal documents or perform any duties such as this. 5. As long as you're taking opiate pain medications he should also be taking a stool softener such as Colace, Dulcolax, MiraLAX or prune juice, to help avoid constipation. Prescriptions: New hydrocodone-acetaminophen 5-325 mg tablet 1 tab PO Q6H PRN (Reason: pain) Qty: 10 0RF prednisone 20 mg tablet 40 mg PO DAILY Qty: 10 0RF cyclobenzaprine 5 mg tablet 5 mg PO TID PRN (Reason: muscle spasm) Qty: 10 0RF No Action atorvastatin 20 mg tablet 20 mg PO DAILY celecoxib 100 mg capsule 100 mg PO DAILY lisinopril 40 mg tablet 40 mg PO DAILY duloxetine 30 mg capsule,delayed release(DR/EC) 30 mg PO DAILY duloxetine 60 mg capsule,delayed release(DR/EC) 60 mg PO DAILY Janumet 50-1,000 mg tablet 50 - 1,000 tab PO BID Rx Instructions: With Meals topiramate 25 mg tablet 50 mg PO BID Rx Instructions: Take 2 capsule by oral route 2 times every day in the morning and evening hydroxyzine pamoate 25 mg Capsule 25 mg PO Q6HR PRN (Reason: Spasms) Qty: 30 0RF Referrals: Rob Lopez DO [Primary Care Provider] - Stand Alone Forms: Patient Portal/API
[2022-12-01] MEDS: HYDROMORPHONE 1 MG INJ IV ×2 (11:08→13:21)
[2022-12-01 11:29] LABS: Add Manual Diff / Slide Review NO; Basophils Absolute Auto 0 /uL (0-100); Basophils Percent Auto 0.4 % (0-2); Eosinophils Absolute Auto 100 /uL (0-450); Eosinophils Percent Auto 1.1 % (2-4); Hematocrit 43.1 % (41-53); Hemoglobin 15.3 g/dL (13.5-17.5); Lymphocytes Absolute Auto 1600 /uL (1100-4500); Mean Corpuscular HGB Conc 35.4 % (30-36); Mean Corpuscular Hemoglobin 28.7 PG (26-34); Monocytes Absolute Auto 500 /uL (0-900); Monocytes Percent Auto 7.8 % (3-14); Neutrophils Absolute Auto 4500 /uL (1500-7000); Neutrophils Percent Auto 66.7 % (50-75); Platelet Count 205 X10^3/uL (150-400); Red Blood Cell Count 5.32 X10^6/uL (4.5-5.9); Red Cell Distribution Width 14.8 % (11.6-14.8); White Blood Cell Count 6.7 X10^3/uL (4.5-11.0)
[2022-12-01 11:41] LABS: Alanine Aminotransferase 58 IU/L (<50); Albumin 4.7 g/dL (3.5-5.0); Albumin Globulin Ratio 1.5 (1.0-2.8); Alkaline Phosphatase 88 U/L (38-126); Aspartate Aminotransferase 39 IU/L (17-59); BUN Creatinine Ratio 21.2 (6-22); Bilirubin Total 0.8 mg/dL (0.2-1.3); Blood Urea Nitrogen 18 mg/dL (9-20); Calcium 9.1 mg/dL (8.4-10.2); Carbon Dioxide 28 mmol/L (22-32); Chloride 99 mmol/L (98-107); Estimated Glomerular Filt Rate > 60 mL/min (>60); Globulin 3.2 g/dL (1.7-4.1); Glucose 155 mg/dL (70-100); HEMOLYSIS < 15 (0-50); Potassium 3.1 mmol/L (3.4-5.1); Sodium 138 mmol/L (137-145); Total Protein 7.9 g/dL (6.3-8.2)
[2022-12-01] MEDS: LORazepam 2 MG/ML INJ 1 MG IV (12:16)
[2022-12-01] MEDS: LIDOCAINE 2% (GLYDO) 6 ML GEL TOP (15:15)
[2022-12-01] MEDS: HYDROMORPHONE 0.5 MG INJ IV (15:15)
[2022-12-01] MEDS: HYDROCODONE/ACET 5/325 TABLET 2 TAB PO (17:25)
--- NOTE | 2022-12-01 17:28 | PC.NURSE ---
Patient educated on cook managment, switched to leg bag.
== END 2022-12-01 17:29 | disposition home or self-care (01) ==
PROVIDERS: Emergency Provider Emergency Medicine; PCP Family Medicine
DX: M51.26 Other intervertebral disc displacement, lumbar region (principal); R33.8 Other retention of urine; W18.30XA Fall on same level, unspecified, initial encounter
CPT/HCPCS: 51798; 72148; 80053; 81003; 85025; 96374; 96375; 96376; 99284; J1170; J2060

== ENCOUNTER 2023-03-16 14:42 | Emergency (ER) | payer OTHER, SELFPAY ==
[2023-03-16] VITALS (10 sets, daily range): BP systolic 120–169; BP diastolic 70–97; PULSE 65–90; RESP 16–18; TEMP 36.6; O2SAT 93–97; BMI 29.7
[2023-03-16] MEDS: SODIUM CHLORIDE 0.9% 1,000 ML 1000 ML IV (15:10)
[2023-03-16 15:15] LABS: Add Manual Diff / Slide Review NO; Basophils Absolute Auto 100 /uL (0-100); Basophils Percent Auto 0.7 % (0-2); Eosinophils Absolute Auto 100 /uL (0-450); Eosinophils Percent Auto 1.6 % (2-4); Hematocrit 44.5 % (41-53); Hemoglobin 15.7 g/dL (13.5-17.5); Lymphocytes Absolute Auto 2000 /uL (1100-4500); Lymphocytes Percent Auto 23.3 % (25-40); Mean Corpuscular HGB Conc 35.4 % (30-36); Mean Corpuscular Hemoglobin 28.6 PG (26-34); Mean Corpuscular Volume 80.7 fL (80-100); Monocytes Absolute Auto 600 /uL (0-900); Monocytes Percent Auto 7.4 % (3-14); Neutrophils Absolute Auto 5800 /uL (1500-7000); Platelet Count 217 X10^3/uL (150-400); Red Blood Cell Count 5.51 X10^6/uL (4.5-5.9); Red Cell Distribution Width 14.1 % (11.6-14.8); White Blood Cell Count 8.6 X10^3/uL (4.5-11.0)
[2023-03-16 15:15] LABS: Appearance Urine UA CLEAR; Bilirubin Urine UA NEGATIVE (NEGATIVE); Color Urine UA YELLOW; Glucose Urine UA NEGATIVE (Negative); Ketones Urine UA NEGATIVE (NEGATIVE); Leukocyte Esterase Urine UA NEGATIVE (NEGATIVE); Nitrite Urine UA NEGATIVE (Negative); Occult Blood Urine UA 3+ (Negative); Protein Urine UA NEGATIVE (Negative); Specific Gravity Urine UA <=1.005 (1.000-1.035); Urobilinogen Urine UA 0.2 E.U./dL (0.2); pH Urine UA 6.5 (4.5-8.0)
[2023-03-16 15:23] LABS: Bacteria Urine None Seen; RBC Urine 10-30/HPF (0-5/HPF); Squamous Epithelial Cell Urine 0-1 /HPF (0-5/HPF); WBC Urine None Seen (0-5/HPF)
[2023-03-16 15:24] LABS: Alanine Aminotransferase 52 IU/L (<50); Albumin 4.6 g/dL (3.5-5.0); Albumin Globulin Ratio 1.4 (1.0-2.8); Alkaline Phosphatase 92 U/L (38-126); Aspartate Aminotransferase 33 IU/L (17-59); BUN Creatinine Ratio 15.7 (6-22); Bilirubin Total 0.7 mg/dL (0.2-1.3); Blood Urea Nitrogen 13 mg/dL (9-20); Calcium 9.2 mg/dL (8.4-10.2); Carbon Dioxide 29 mmol/L (22-32); Chloride 98 mmol/L (98-107); Estimated Glomerular Filt Rate > 60 mL/min (>60); Globulin 3.2 g/dL (1.7-4.1); Glucose 206 mg/dL (70-100); HEMOLYSIS < 15 (0-50); Potassium 3.3 mmol/L (3.4-5.1); Sodium 137 mmol/L (137-145); Total Protein 7.8 g/dL (6.3-8.2)
[2023-03-16 15:24] LABS: Culture Indicated Urine Cult Not Indicated
[2023-03-16] MEDS: ONDANSETRON 4 MG/2 ML INJ IV (15:35)
--- NOTE | 2023-03-16 15:52 | DI.CT.S_ITS ---
PROCEDURE: CT KIDNEY URETER BLADDER (KUB) INDICATIONS: r/o kidney stone TECHNIQUE: Axial sections were acquired from the lung bases to the pubic symphysis. Coronal and sagittal reformats were performed. For radiation dose reduction, the following was used: automated exposure control, adjustment of mA and/or kV according to patient size. COMPARISON: [facility], CT, CT ABDOMEN PELVIS W CON, 09/02/2021, 19:07. FINDINGS: Image quality: Excellent. Lung bases: Unremarkable. Heart: No significant findings. URINARY: Right Kidney: 2 mm nonobstructing stone, right middle pole. No hydronephrosis. Right Ureter: No hydroureter. Left Kidney: No stones or hydronephrosis. Left Ureter: No hydroureter. Bladder: Normal wall thickness. No stones. ABDOMEN: Liver: Mild hepatomegaly, mild to moderate diffuse hepatic steatosis.. Gallbladder: Unremarkable. Biliary ducts: Unremarkable. Pancreas: Unremarkable. Spleen: Unremarkable. Adrenal Glands: Unremarkable. Stomach and Bowel: Very mild diverticulosis. Large fecal load. Peritoneum: No abnormal intraperitoneal fluid. No free air. Ventral Wall: No hernia. Abdominal Nodes: No enlarged retroperitoneal or mesenteric lymph nodes. Vessels: Aorta and inferior vena cava are normal in size. PELVIS: Pelvic Organs: Unremarkable. Pelvic Nodes: Unremarkable. Miscellaneous: Small, fat containing left inguinal hernia. No inguinal adenopathy. Bones: Unremarkable. IMPRESSION: 1. There is a 2 mm nonobstructing right renal stone. No ureteral stones. No hydronephrosis. 2. [id number] diffuse hepatic steatosis, mild hepatomegaly. 3. Small fat containing left inguinal hernia. 4. Very mild diverticulosis. 5. No evidence of acute abdominal process. Dictated by: Maninder Kelsey M.D. on 03/16/2023 at 16:45 Approved by: Maninder Kelsey M.D. on 03/16/2023 at 16:49
[2023-03-16] MEDS: KETOROLAC 30 MG/ML VIAL 15 MG IV (15:54)
[2023-03-16] MEDS: MORPHINE 4 MG/ML INJ IV ×2 (17:00→18:23)
--- NOTE | 2023-03-16 18:01 | DI.US.S_ITS ---
PROCEDURE: US ABDOMEN LIMITED INDICATIONS: RIGHT UPPER QUADRANT PAIN TECHNIQUE: Real-time scanning was performed of the abdominal and retroperitoneal organs, with image documentation. COMPARISON: [facility], CT, CT KIDNEY URETER BLADDER (KUB), 03/16/2023, 15:57. FINDINGS: Liver: Liver is enlarged measuring 18.6 cm with increased echogenicity. Gallbladder: No stones. Wall thickness is normal measuring 1.1 mm. Biliary ducts: Intrahepatic bile ducts are non-dilated. Extrahepatic bile duct caliber is not well seen. IMPRESSION: Hepatomegaly with steatosis. Gallbladder is unremarkable. Dictated by: Makayla Scott M.D. on 03/16/2023 at 19:22 Approved by: Makayla Scott M.D. on 03/16/2023 at 19:23
--- NOTE | 2023-03-16 18:01 | DI.US.S_ITS ---
PROCEDURE: US SCROTUM INDICATIONS: RIGHT SCROTAL PAIN TECHNIQUE: Real-time scanning was performed of the scrotum and testicles, with image documentation. Color and pulse Doppler interrogation was performed of both testicles. COMPARISON: None. FINDINGS: Right: Testicle is normal in size at 5.7 x 4.0 x 2.7 cm, and homogenous in echotexture. Epididymis demonstrates simple cysts the largest measuring 4 mm. No hydrocele or varicoceles. Overlying scrotal skin is normal in thickness. Left: Testicle is normal in size at 5.3 x 4.1 x 2.7 cm, and homogeneous in echotexture. Epididymis is normal in overall size and morphology. No hydrocele or varicoceles. Overlying scrotal skin is normal in thickness. Doppler: Color and pulse Doppler demonstrate normal and symmetric arterial flow in both testicles. IMPRESSION: No torsion at time of exam. Intermittent torsion cannot be excluded. Epididymal head cysts are noted on the right. Dictated by: Makayla Scott M.D. on 03/16/2023 at 19:24 Approved by: Makayla Scott M.D. on 03/16/2023 at 19:24
--- NOTE | 2023-03-16 19:26 | ED_ITS ---
HPI - Male Genitourinary <Lauro Griffin PA-C - Last Filed: 03/16/23 19:54> General Chief complaint: Urogenital-Male Stated complaint: RT side pain/V /cold flashes Time Seen by Provider: 03/16/23 15:48 History of Present Illness HPI Narrative: 47-year-old male with past medical history type 2 diabetes, hypertension, PTSD, nephrolithiasis presents to the ED with 2 days of right-sided groin pain that wraps up to his flank. Patient expresses pain that spans from his right flank all the way into the right scrotum. Patient denies fever, chills, chest pain, shortness of breath, dysuria, lightheadedness, dizziness, syncope. Patient does endorse nausea and vomiting. Patient has a history of nephrolithiasis in the past, needed a stent once for it. Related Data Home Medications Medication Instructions Recorded Confirmed atorvastatin 20 mg tablet 20 mg PO DAILY 01/15/22 02/24/22 celecoxib 100 mg capsule 100 mg PO DAILY 01/15/22 02/24/22 duloxetine 30 mg capsule,delayed 30 mg PO DAILY 01/15/22 02/24/22 release duloxetine 60 mg capsule,delayed 60 mg PO DAILY 01/15/22 02/24/22 release lisinopril 40 mg tablet 40 mg PO DAILY 01/15/22 02/24/22 sitagliptin phosphate 50 50 - 1,000 tab PO BID 01/15/22 02/24/22 mg-metformin 1,000 mg tablet (Janumet) topiramate 25 mg tablet 50 mg PO BID 01/15/22 02/24/22 Previous Rx's Medication Instructions Recorded hydroxyzine pamoate 25 mg capsule 25 mg PO Q6HR PRN Spasms #30 caps 01/17/22 cyclobenzaprine 5 mg tablet 5 mg PO TID PRN muscle spasm #10 12/01/22 tabs hydrocodone 5 mg-acetaminophen 325 1 tab PO Q6H PRN pain #10 tabs 12/01/22 mg tablet prednisone 20 mg tablet 40 mg PO DAILY #10 tabs 12/01/22 Allergies Allergy/AdvReac Type Severity Reaction Status Date / Time Penicillins Allergy Mild Rash Verified 12/01/22 10:33 Review of Systems <Lauro Griffin PA-C - Last Filed: 03/16/23 19:54> Review of Systems ROS Unobtainable: All systems reviewed & are unremarkable except as noted in HPI and below Constitutional Constitutional: Denies chills, Denies fatigue, Denies fever(s), Denies frequent falls, Denies lethargy and Denies weakness Eyes Eyes: Denies change in vision, Denies eye discharge, Denies irritation and Denies loss of vision ENT Ears, Nose, Mouth, and Throat: Denies change in voice, Denies dizziness, Denies neck pain, Denies sore throat and Denies throat swelling Cardiovascular Cardiovascular: Denies chest pain, Denies irregular heart rhythm, Denies lightheadedness, Denies palpitations, Denies dyspnea, Denies dyspnea on exertion and Denies orthopnea Respiratory Respiratory: Denies cough, Denies dyspnea, Denies dyspnea on exertion and Denies wheezing Gastrointestinal Gastrointestinal: Reports abdominal pain, Denies change in bowel habits, Denies diarrhea, Reports nausea and Reports vomiting Comments: R flank pain Genitourinary Genitourinary: Denies hematuria, Denies flank pain, Reports testicular pain, Denies urinary incontinence and Denies urinary urgency Musculoskeletal Musculoskeletal: Denies back pain, Denies muscle weakness, Denies neck pain, Denies numbness and Denies tingling Integumentary/Breasts Skin/Breast: Denies pruritus, Denies erythema, Denies rash and Denies wounds Neurologic Neurologic: Denies behavioral changes, Denies confusion, Denies dizziness, Denies frequent falls, Denies loss of vision, Denies numbness, Denies tingling and Denies weakness Psychiatric Psychiatric: Denies anxiety, Denies behavioral changes, Denies confusion, Denies depression, Denies homicidal ideation and Denies suicidal ideation Endocrine Endocrine: Denies fatigue, Denies flushing and Denies palpitations Hematologic/Lymphatic Hematologic/Lymphatic: Denies easy bruising Allergic/Immunologic Allergic/Immunologic: Denies urticaria, Denies throat swelling and Denies whee zing Patient History <Lauro Griffin PA-C - Last Filed: 03/16/23 19:54> Medical History Arthritis COVID (~11/2021) Degenerative joint disease Depression Diabetes Fracture Headache, migraine Hepatic steatosis Hyperlipidemia Hypertension Traumatic complete tear of right rotator cuff Surgical History History of hernia repair History of vasectomy Social History household members: children Smoking Status: Never smoker Smoking Status: Never smoker alcohol intake frequency: holidays/special occasions only Substance Use Type: does not use Exam <Lauro Griffin PA-C - Last Filed: 03/16/23 19:54> Narrative Exam Narrative: Const General:?cooperative, healthy appearing and comfortable [facility] Head:?normal to inspection Ears:?hearing grossly normal bilaterally Nose:?external nose normal Face and sinus:?normal facial exam and sinuses nontender Mouth:?oral mucosae normal Throat:?posterior oropharynx normal Eyes General:?appearance normal, both eyes and all related structures Neck Neck:?normal visual inspection and no lymphadenopathy noted Resp Effort & Inspection:?normal respiratory effort Auscultation:?clear to auscultation bilaterally Cardio Rate:?regular rate Rhythm:?regular rhythm GI Abdomen is soft, nondistended. Abdomen is tender to palpation in the right upper quadrant. There is no CVA tenderness. No erythema, swelling of the scrotum. There is mild tenderness to palpation of the right scrotum. Neuro General:?patient alert, patient awake and patient oriented x3 Initial Vital Signs Initial Vital Signs: Vital Signs Temperature 97.8 F 03/16/23 14:54 Pulse Rate 90 03/16/23 14:54 Respiratory Rate 16 03/16/23 14:54 Blood Pressure 152/97 H 03/16/23 14:54 Pulse Oximetry 96 03/16/23 14:54 Oxygen Delivery Method Room Air 03/16/23 14:54 <Barbi Coyle DO - Last Filed: 03/19/23 02:35> Initial Vital Signs Initial Vital Signs: Vital Signs Temperature 97.8 F 03/16/23 14:54 Pulse Rate 90 03/16/23 14:54 Respiratory Rate 16 03/16/23 14:54 Blood Pressure 152/97 H 03/16/23 14:54 Pulse Oximetry 96 03/16/23 14:54 Oxygen Delivery Method Room Air 03/16/23 14:54 Course <Lauro Griffin PA-C - Last Filed: 03/16/23 19:54> Orders Ordered: Discontinued Medications Sodium Chloride (Normal Saline 0.9%) 1,000 mls @ 1,000 mls/hr IV BOLUS ONE Stop: 03/16/23 16:07 Last Infusion: 03/16/23 16:08 Dose: 0 mls/hr Documented By: Admin: 03/16/23 15:10 Dose: 1,000 mls/hr Documented By: SANTOS Ketorolac Tromethamine (Ketorolac 30 Mg/Ml Vial) 15 mg IV NOW ONE Stop: 03/16/23 15:50 Last Admin: 03/16/23 15:54 Dose: 15 mg Documented By: SAUL Morphine Sulfate (Morphine 4 Mg/Ml Inj) 4 mg IV NOW ONE Stop: 03/16/23 16:41 Last Admin: 03/16/23 17:00 Dose: 4 mg Documented By: KB Morphine Sulfate (Morphine 4 Mg/Ml Inj) 4 mg IV NOW ONE Stop: 03/16/23 18:21 Last Admin: 03/16/23 18:23 Dose: 4 mg Documented By: RB Ondansetron HCl (Ondansetron 4 Mg/2 Ml Inj) 4 mg IV NOW ONE Stop: 03/16/23 15:09 Last Admin: 03/16/23 15:35 Dose: 4 mg Documented By: SANTOS Vital Signs Vital signs: Vital Signs - 8 hr 03/16/23 14:54 03/16/23 16:59 03/16/23 17:00 Temperature 97.8 F Pulse Rate 90 86 Respiratory Rate 16 Blood Pressure 152/97 H 126/78 Pulse Oximetry 96 97 Oxygen Delivery Method Room Air 03/16/23 17:00 03/16/23 17:30 03/16/23 17:30 Temperature Pulse Rate 75 74 Respiratory Rate Blood Pressure 120/70 Pulse Oximetry 95 94 Oxygen Delivery Method 03/16/23 18:00 03/16/23 18:00 03/16/23 18:30 Temperature Pulse Rate 80 Respiratory Rate Blood Pressure 169/86 H 160/85 H Pulse Oximetry 94 Oxygen Delivery Method 03/16/23 18:30 03/16/23 18:41 03/16/23 18:41 Temperature Pulse Rate 78 80 Respiratory Rate 18 Blood Pressure 148/70 H Pulse Oximetry 95 96 Oxygen Delivery Method <Barbi Coyle DO - Last Filed: 03/19/23 02:35> Orders Ordered: Discontinued Medications Sodium Chloride (Normal Saline 0.9%) 1,000 mls @ 1,000 mls/hr IV BOLUS ONE Stop: 03/16/23 16:07 Last Infusion: 03/16/23 16:08 Dose: 0 mls/hr Documented By: Admin: 03/16/23 15:10 Dose: 1,000 mls/hr Documented By: SANTOS Ketorolac Tromethamine (Ketorolac 30 Mg/Ml Vial) 15 mg IV NOW ONE Stop: 03/16/23 15:50 Last Admin: 03/16/23 15:54 Dose: 15 mg Documented By: SAUL Morphine Sulfate (Morphine 4 Mg/Ml Inj) 4 mg IV NOW ONE Stop: 03/16/23 16:41 Last Admin: 03/16/23 17:00 Dose: 4 mg Documented By: KB Morphine Sulfate (Morphine 4 Mg/Ml Inj) 4 mg IV NOW ONE Stop: 03/16/23 18:21 Last Admin: 03/16/23 18:23 Dose: 4 mg Documented By: RB Ondansetron HCl (Ondansetron 4 Mg/2 Ml Inj) 4 mg IV NOW ONE Stop: 03/16/23 15:09 Last Admin: 03/16/23 15:35 Dose: 4 mg Documented By: SANTOS Vital Signs Vital signs: Vital Signs - 8 hr 03/16/23 14:54 03/16/23 16:59 03/16/23 17:00 Temperature 97.8 F Pulse Rate 90 86 Respiratory Rate 16 Blood Pressure 152/97 H 126/78 Pulse Oximetry 96 97 Oxygen Delivery Method Room Air 03/16/23 17:00 03/16/23 17:30 03/16/23 17:30 Temperature Pulse Rate 75 74 Respiratory Rate Blood Pressure 120/70 Pulse Oximetry 95 94 Oxygen Delivery Method 03/16/23 18:00 03/16/23 18:00 03/16/23 18:30 Temperature Pulse Rate 80 Respiratory Rate Blood Pressure 169/86 H 160/85 H Pulse Oximetry 94 Oxygen Delivery Method 03/16/23 18:30 03/16/23 18:41 03/16/23 18:41 Temperature Pulse Rate 78 80 Respiratory Rate 18 Blood Pressure 148/70 H Pulse Oximetry 95 96 Oxygen Delivery Method MDM - Male Genitourinary <Hyma PAULETTE Griffin - Last Filed: 03/16/23 19:54> Lab Data 03/16/23 15:05 03/16/23 15:05 Labs: Lab Results 03/16/23 03/16/23 03/16/23 Range/Units 15:00 15:05 15:05 WBC 8.6 (4.5-11.0) X10^3/uL RBC 5.51 (4.5-5.9) X10^6/uL Hgb 15.7 (13.5-17.5) g/dL Hct 44.5 (41-53) % MCV 80.7 (80-100) fL MCH 28.6 (26-34) PG MCHC 35.4 (30-36) % RDW 14.1 (11.6-14.8) % Plt Count 217 (150-400) X10^3/uL Neut % (Auto) 67.0 (50-75) % Lymph % (Auto) 23.3 L (25-40) % [place] % (Auto) 7.4 (3-14) % Eos % (Auto) 1.6 L (2-4) % Baso % (Auto) 0.7 (0-2) % Neut # (Auto) 5800 (0899-0116) /uL Lymph # (Auto) 2000 (1478-8889) /uL [place] # (Auto) 600 (0-900) /uL Eos # (Auto) 100 (0-450) /uL Baso # (Auto) 100 (0-100) /uL Sodium 137 (137-145) mmol/L Potassium 3.3 L (3.4-5.1) mmol/L Chloride 98 (98-107) mmol/L Carbon Dioxide 29 (22-32) mmol/L BUN 13 (9-20) mg/dL Creatinine 0.83 (0.66-1.25) mg/dL Estimated GFR > 60 (>60) mL/min BUN/Creatinine Ratio 15.7 (6-22) Glucose 206 H (70-100) mg/dL Calcium 9.2 (8.4-10.2) mg/dL Total Bilirubin 0.7 (0.2-1.3) mg/dL AST 33 (17-59) IU/L ALT 52 H (<50) IU/L Alkaline Phosphatase 92 (38-126) U/L Total Protein 7.8 (6.3-8.2) g/dL Albumin 4.6 (3.5-5.0) g/dL Globulin 3.2 (1.7-4.1) g/dL Albumin/Globulin Ratio 1.4 (1.0-2.8) Urine Color Yellow Urine Appearance Clear Urine pH 6.5 (4.5-8.0) Ur Specific [place] <=1.005 (1.000-1.035) Urine Protein Negative (Negative) Urine Glucose (UA) Negative (Negative) g/dL Urine Ketones Negative (NEGATIVE) Urine Occult Blood 3+ H (Negative) Urine Nitrate Negative (Negative) Urine Bilirubin Negative (NEGATIVE) Urine Urobilinogen 0.2 (0.2) E.U./dL Ur Leukocyte Esterase Negative (NEGATIVE) Urine RBC 10-30/hpf H (0-5/HPF) Urine WBC None seen (0-5/HPF) Ur Squamous Epith Cells 0-1 /hpf (0-5/HPF) Urine Bacteria None seen (None) Ur Culture Indicated? Cult not indicated MDM Narrative Medical decision making narrative: 47-year-old male with past medical history type 2 diabetes, hypertension, PTSD, nephrolithiasis presents to the ED with 2 days of right-sided groin pain that wraps up to his flank. Concern for nephrolithiasis versus pyelonephritis versus UTI versus testicular torsion versus gallbladder disease versus epididymitis versus other. Will obtain labs, UA, CT KUB. CT KUB shows no obstructing stone or other pathology to explain patient's symptoms. Will obtain ultrasound of the gallbladder as well as ultrasound of the scrotum. Will reassess. Patient's pain is controlled with ketorolac and morphine. No acute findings on ultrasound of the abdomen and ultrasound of the scrotum. It is possible patient had a kidney stone that he passed prior to imaging. Findings were discussed with patient. Patient agrees to monitor his symptoms, return to the ED if symptoms worsen, he is persistently vomiting or develops fever, chills. Medical records reviewed: Yes <Barbi Coyle DO - Last Filed: 03/19/23 02:35> Lab Data Labs: Lab Results 03/16/23 03/16/23 03/16/23 Range/Units 15:00 15:05 15:05 WBC 8.6 (4.5-11.0) X10^3/uL RBC 5.51 (4.5-5.9) X10^6/uL Hgb 15.7 (13.5-17.5) g/dL Hct 44.5 (41-53) % MCV 80.7 (80-100) fL MCH 28.6 (26-34) PG MCHC 35.4 (30-36) % RDW 14.1 (11.6-14.8) % Plt Count 217 (150-400) X10^3/uL Neut % (Auto) 67.0 (50-75) % Lymph % (Auto) 23.3 L (25-40) % [place] % (Auto) 7.4 (3-14) % Eos % (Auto) 1.6 L (2-4) % Baso % (Auto) 0.7 (0-2) % Neut # (Auto) 5800 (9834-3752) /uL Lymph # (Auto) 2000 (2921-5480) /uL [place] # (Auto) 600 (0-900) /uL Eos # (Auto) 100 (0-450) /uL Baso # (Auto) 100 (0-100) /uL Sodium 137 (137-145) mmol/L Potassium 3.3 L (3.4-5.1) mmol/L Chloride 98 (98-107) mmol/L Carbon Dioxide 29 (22-32) mmol/L BUN 13 (9-20) mg/dL Creatinine 0.83 (0.66-1.25) mg/dL Estimated GFR > 60 (>60) mL/min BUN/Creatinine Ratio 15.7 (6-22) Glucose 206 H (70-100) mg/dL Calcium 9.2 (8.4-10.2) mg/dL Total Bilirubin 0.7 (0.2-1.3) mg/dL AST 33 (17-59) IU/L ALT 52 H (<50) IU/L Alkaline Phosphatase 92 (38-126) U/L Total Protein 7.8 (6.3-8.2) g/dL Albumin 4.6 (3.5-5.0) g/dL Globulin 3.2 (1.7-4.1) g/dL Albumin/Globulin Ratio 1.4 (1.0-2.8) Urine Color Yellow Urine Appearance Clear Urine pH 6.5 (4.5-8.0) Ur Specific [place] <=1.005 (1.000-1.035) Urine Protein Negative (Negative) Urine Glucose (UA) Negative (Negative) g/dL Urine Ketones Negative (NEGATIVE) Urine Occult Blood 3+ H (Negative) Urine Nitrate Negative (Negative) Urine Bilirubin Negative (NEGATIVE) Urine Urobilinogen 0.2 (0.2) E.U./dL Ur Leukocyte Esterase Negative (NEGATIVE) Urine RBC 10-30/hpf H (0-5/HPF) Urine WBC None seen (0-5/HPF) Ur Squamous Epith Cells 0-1 /hpf (0-5/HPF) Urine Bacteria None seen (None) Ur Culture Indicated? Cult not indicated Discharge Plan Departure Patient Disposition: Home Clinical Impression: Abdominal pain Instructions: DI for Abdominal Pain-Adult Activity Restrictions/Additional Instructions: You were evaluated in the ED today for abdominal pain, flank pain. Your labs, urine, CT abdomen pelvis, ultrasound abdomen, ultrasound scrotum were without acute findings. It is possible that you had a kidney stone that you passed prior to imaging. Please monitor your symptoms and return to the ED if you have worsening abdominal pain, persistent vomiting, fever, chills. Please follow-up with your PCP as soon as possible. Prescriptions: No Action atorvastatin 20 mg tablet 20 mg PO DAILY celecoxib 100 mg capsule 100 mg PO DAILY lisinopril 40 mg tablet 40 mg PO DAILY duloxetine 30 mg capsule,delayed release(DR/EC) 30 mg PO DAILY duloxetine 60 mg capsule,delayed release(DR/EC) 60 mg PO DAILY Janumet 50-1,000 mg tablet 50 - 1,000 tab PO BID Rx Instructions: With Meals topiramate 25 mg tablet 50 mg PO BID Rx Instructions: Take 2 capsule by oral route 2 times every day in the morning and evening hydroxyzine pamoate 25 mg Capsule 25 mg PO Q6HR PRN (Reason: Spasms) Qty: 30 0RF hydrocodone-acetaminophen 5-325 mg tablet 1 tab PO Q6H PRN (Reason: pain) Qty: 10 0RF prednisone 20 mg tablet 40 mg PO DAILY Qty: 10 0RF cyclobenzaprine 5 mg tablet 5 mg PO TID PRN (Reason: muscle spasm) Qty: 10 0RF Referrals: Rob Lopez DO [Primary Care Provider] - Stand Alone Forms: Patient Portal/API <Barbi Coyle DO - Last Filed: 03/19/23 02:35> Cosign ED Attending Cosignature Attestation: I was immediately available in the department for consultation. Documentation has been reviewed.
== END 2023-03-16 20:20 | disposition home or self-care (01) ==
PROVIDERS: Emergency Medicine; Emergency Provider Student in an Organized Health Care Education/Training Program; PCP Family Medicine
DX: R10.9 Unspecified abdominal pain (principal); R11.2 Nausea with vomiting, unspecified; N50.811 Right testicular pain
CPT/HCPCS: 36415; 74176; 76705; 76870; 80053; 81001; 85025; 96361; 96374; 96375; 96376; 99284; J1885; J2270; J2405

== ENCOUNTER 2023-07-06 10:00 | Emergency (ER) | payer OTHER, SELFPAY ==
[2023-07-06] VITALS (8 sets, daily range): BP systolic 115–153; BP diastolic 62–92; PULSE 68–82; RESP 14–19; TEMP 36.2–36.7; O2SAT 95–98; BMI 29.0
[2023-07-06 10:58] LABS: Add Manual Diff / Slide Review NO; Basophils Absolute Auto 100 /uL (0-100); Basophils Percent Auto 0.7 % (0-2); Eosinophils Absolute Auto 100 /uL (0-450); Eosinophils Percent Auto 1.2 % (2-4); Hematocrit 44.6 % (41-53); Hemoglobin 15.7 g/dL (13.5-17.5); Lymphocytes Absolute Auto 1500 /uL (1100-4500); Lymphocytes Percent Auto 17.1 % (25-40); Mean Corpuscular HGB Conc 35.3 % (30-36); Mean Corpuscular Hemoglobin 28.4 PG (26-34); Mean Corpuscular Volume 80.4 fL (80-100); Monocytes Absolute Auto 600 /uL (0-900); Monocytes Percent Auto 6.5 % (3-14); Neutrophils Absolute Auto 6400 /uL (1500-7000); Neutrophils Percent Auto 74.5 % (50-75); Platelet Count 212 X10^3/uL (150-400); Red Blood Cell Count 5.55 X10^6/uL (4.5-5.9); Red Cell Distribution Width 14.1 % (11.6-14.8); White Blood Cell Count 8.6 X10^3/uL (4.5-11.0)
[2023-07-06 11:03] LABS: INR 1.1 (0.9-1.3); Prothrombin Time 12.5 SECONDS (10.1-12.7)
[2023-07-06] MEDS: HYDROMORPHONE 0.5 MG INJ IV (11:05)
[2023-07-06 11:06] LABS: PTT Partial Thromboplastin Tim 29 SECONDS (26-36)
[2023-07-06] MEDS: ONDANSETRON 4 MG/2 ML INJ IV (11:06)
[2023-07-06 11:08] LABS: Alanine Aminotransferase 37 IU/L (<50); Albumin 4.4 g/dL (3.5-5.0); Albumin Globulin Ratio 1.4 (1.0-2.8); Alkaline Phosphatase 79 U/L (38-126); Aspartate Aminotransferase 29 IU/L (17-59); Bilirubin Total 0.6 mg/dL (0.2-1.3); Blood Urea Nitrogen 20 mg/dL (9-20); Calcium 9.4 mg/dL (8.4-10.2); Carbon Dioxide 26 mmol/L (22-32); Chloride 99 mmol/L (98-107); Estimated Glomerular Filt Rate > 60 mL/min (>60); Globulin 3.1 g/dL (1.7-4.1); Glucose 202 mg/dL (70-100); HEMOLYSIS < 15 (0-50); Lactate (Lactic Acid) 2.7 mmol/L (0.7-2.1); Lipase 67 U/L (23-300); Potassium 3.2 mmol/L (3.4-5.1); Sodium 136 mmol/L (137-145); Total Protein 7.5 g/dL (6.3-8.2)
[2023-07-06 11:20] LABS: C-Reactive Protein Quant < 0.5 mg/dL (<1.0)
[2023-07-06 11:24] LABS: Procalcitonin 0.05 ng/mL (<0.5)
[2023-07-06 11:28] LABS: Erythrocyte Sedimentation Rate 3 MM/HR (0-15)
[2023-07-06] MEDS: SODIUM CHLORIDE 0.9% 1,000 ML 1000 ML IV (11:30)
--- NOTE | 2023-07-06 11:31 | ED.BACK ---
HPI - Back Pain/Injury General Chief Complaint: Fever Stated Complaint: bump and pain at surgical site on back/ srg T-7 Time Seen by Provider: 07/06/23 10:59 Source: patient History of Present Illness HPI Narrative: Patient is a 47-year-old male with chronic ongoing back pain who presents today with fever and increasing pain. He was down at [facility] where he had a radio ablation for his spine. He is had this previously today he is having increasing pain on the right side he thought he felt something pop. He is had shivers and chills but is currently afebrile. He denies any worsening numbness or tingling in his legs he reports he is chronic ongoing neuropathy. No chest pain shortness of breath. No changes in urination he denies any painful frequent urination or urinary retention or incontinence. He continues to have bowel movements. Related Data Home Medications Medication Instructions Recorded Confirmed atorvastatin 20 mg tablet 20 mg PO QAM 01/15/22 07/06/23 duloxetine 60 mg capsule,delayed 60 mg PO DAILY 01/15/22 07/06/23 release lisinopril 40 mg tablet 40 mg PO DAILY 01/15/22 07/06/23 sitagliptin phosphate 50 50 - 1,000 tab PO BID 01/15/22 07/06/23 mg-metformin 1,000 mg tablet ([place]) chlorthalidone 25 mg tablet 25 mg PO DAILY 07/06/23 07/06/23 ibuprofen 800 mg tablet 800 mg PO Q6H PRN Pain, Moderate 07/06/23 07/06/23 oxycodone 5 mg tablet 5 mg PO BID PRN Pain, Severe 07/06/23 07/06/23 prazosin 1 mg capsule 2 mg PO BID 07/06/23 07/06/23 Previous Rx's Medication Instructions Recorded cyclobenzaprine 5 mg tablet 5 mg PO TID PRN muscle spasm #10 12/01/22 tabs oxycodone 5 mg tablet 5 mg PO Q6H PRN pain #8 tabs 07/06/23 Allergies Allergy/AdvReac Type Severity Reaction Status Date / Time Penicillins Allergy Mild Rash Verified 07/06/23 10:31 Review of Systems Review of Systems ROS Unobtainable: All systems reviewed & are unremarkable except as noted in HPI and below Patient History Medical History Arthritis COVID (~11/2021) Degenerative joint disease Depression Diabetes Fracture Headache, migraine Hepatic steatosis Hyperlipidemia Hypertension Traumatic complete tear of right rotator cuff Surgical History History of hernia repair History of vasectomy Social History household members: children Smoking Status: Never smoker Smoking Status: Never smoker alcohol intake frequency: holidays/special occasions only Substance Use Type: does not use Exam Initial Vital Signs Initial Vital Signs: Vital Signs Temperature 97.2 F L 07/06/23 10:26 Pulse Rate 78 07/06/23 10:26 Respiratory Rate 14 07/06/23 10:26 Blood Pressure 131/87 07/06/23 10:26 Pulse Oximetry 97 07/06/23 10:26 Oxygen Delivery Method Room Air 07/06/23 10:26 GENERAL: Alert 47-year-old male and in no acute distress. HEENT: Head atraumatic,EOMI, pupils reactive, face symmetric, moist mucous membranes CARDIOVASCULAR: Regular rate and rhythm without murmurs, rubs or gallops. RESPIRATORY: Breath sounds equal bilaterally, no wheezes rales or rhonchi. ABDOMEN: Soft, nontender. Normoactive bowel sounds all 4 quadrants. No guarding or rebound. BACK: Fernando spinal tenderness on the right side in the lumbar region no obvious swelling or redness tender to touch he jumps off the bed. No vertebral tenderness EXTREMITIES: Normal range of motion, no clubbing or edema. Neurovascularly intact NEUROLOGICAL: Alert and oriented x4. SKIN: Warm, dry, no laceration, no petechiae, no rashes or lesions. Course Orders Ordered: ED Orders 07/06/23 10:45 CRP [C-Reactive Protein Quant] Stat Complete Blood Count AUTO DIFF Stat Comprehensive Metabolic Panel Stat ESR [Erythrocyte Sedimentation Rate] Stat Lactate (Lactic Acid) Stat Lipase Stat PTT Partial Thromboplastin Wilian Stat Procalcitonin Stat Prothrombin Time INR Stat 07/06/23 10:55 Blood Culture Stat 07/06/23 11:52 MR lumbar spine wo/w con Stat Discontinued Medications Hydromorphone HCl (Hydromorphone 0.5 Mg Inj) 0.5 mg IV NOW ONE Stop: 07/06/23 11:00 Last Admin: 07/06/23 11:05 Dose: 0.5 mg Documented By: LAY Hydromorphone HCl (Hydromorphone 1 Mg Inj) 1 mg IV NOW ONE Stop: 07/06/23 11:53 Last Admin: 07/06/23 12:28 Dose: 1 mg Documented By: LAY Sodium Chloride (Normal Saline 0.9%) 1,000 mls @ 1,000 mls/hr IV BOLUS ONE Stop: 07/06/23 12:17 Last Infusion: 07/06/23 12:34 Dose: 0 mls/hr Documented By: Admin: 07/06/23 11:30 Dose: 1,000 mls/hr Documented By: LAY Ketorolac Tromethamine (Ketorolac 30 Mg/Ml Vial) 15 mg IV NOW ONE Stop: 07/06/23 11:53 Last Admin: 07/06/23 12:29 Dose: 15 mg Documented By: LAY Morphine Sulfate (Morphine 4 Mg/Ml Inj) 4 mg IV NOW ONE Stop: 07/06/23 15:31 Last Admin: 07/06/23 16:00 Dose: 4 mg Documented By: SANTOS Ondansetron HCl (Ondansetron 4 Mg/2 Ml Inj) 4 mg IV NOW PRN PRN Reason: Nausea And Vomiting Last Admin: 07/06/23 11:06 Dose: 4 mg Documented By: LAY Ondansetron HCl (Ondansetron 4 Mg Odt) 4 mg SL NOW PRN PRN Reason: Nausea And Vomiting Vital Signs Vital signs: Vital Signs - 8 hr 07/06/23 11:37 07/06/23 12:55 07/06/23 12:57 Temperature Pulse Rate 82 78 68 Respiratory Rate 18 19 18 Blood Pressure 131/72 153/92 H 137/62 Pulse Oximetry 98 98 97 Oxygen Delivery Method Room Air Room Air Room Air 07/06/23 14:23 07/06/23 15:27 07/06/23 15:58 Temperature 98.0 F Pulse Rate 72 76 68 Respiratory Rate 19 18 Blood Pressure 134/77 123/73 115/67 Pulse Oximetry 98 97 95 Oxygen Delivery Method Room Air Room Air Room Air MDM - Back Pain/Injury Lab Data 07/06/23 10:45 07/06/23 10:45 Labs: Lab Results 0807/06/23 07/06/23 Range/Units 10:45 10:45 10:45 WBC 8.6 (4.5-11.0) X10^3/uL RBC 5.55 (4.5-5.9) X10^6/uL Hgb 15.7 (13.5-17.5) g/dL Hct 44.6 (41-53) % MCV 80.4 (80-100) fL MCH 28.4 (26-34) PG MCHC 35.3 (30-36) % RDW 14.1 (11.6-14.8) % Plt Count 212 (150-400) X10^3/uL Neut % (Auto) 74.5 (50-75) % Lymph % (Auto) 17.1 L (25-40) % [place] % (Auto) 6.5 (3-14) % Eos % (Auto) 1.2 L (2-4) % Baso % (Auto) 0.7 (0-2) % Neut # (Auto) 6400 (5031-9134) /uL Lymph # (Auto) 1500 (7139-3275) /uL [place] # (Auto) 600 (0-900) /uL Eos # (Auto) 100 (0-450) /uL Baso # (Auto) 100 (0-100) /uL ESR (0-15) MM/HR PT 12.5 (10.1-12.7) SECONDS INR 1.1 (0.9-1.3) APTT 29 (26-36) SECONDS Sodium 136 L (137-145) mmol/L Potassium 3.2 L (3.4-5.1) mmol/L Chloride 99 (98-107) mmol/L Carbon Dioxide 26 (22-32) mmol/L BUN 20 (9-20) mg/dL Creatinine 0.77 (0.66-1.25) mg/dL Estimated GFR > 60 (>60) mL/min BUN/Creatinine Ratio 26.0 H (6-22) Glucose 202 H (70-100) mg/dL Lactate (0.7-2.1) mmol/L Calcium 9.4 (8.4-10.2) mg/dL Total Bilirubin 0.6 (0.2-1.3) mg/dL AST 29 (17-59) IU/L ALT 37 (<50) IU/L Alkaline Phosphatase 79 (38-126) U/L C-Reactive Protein (<1.0) mg/dL Total Protein 7.5 (6.3-8.2) g/dL Albumin 4.4 (3.5-5.0) g/dL Globulin 3.1 (1.7-4.1) g/dL Albumin/Globulin Ratio 1.4 (1.0-2.8) Lipase 67 (23-300) U/L Procalcitonin 0.05 (<0.5) ng/mL 07/06/23 07/06/23 07/06/23 Range/Units 10:45 10:45 10:45 WBC (4.5-11.0) X10^3/uL RBC (4.5-5.9) X10^6/uL Hgb (13.5-17.5) g/dL Hct (41-53) % MCV (80-100) fL MCH (26-34) PG MCHC (30-36) % RDW (11.6-14.8) % Plt Count (150-400) X10^3/uL Neut % (Auto) (50-75) % Lymph % (Auto) (25-40) % [place] % (Auto) (3-14) % Eos % (Auto) (2-4) % Baso % (Auto) (0-2) % Neut # (Auto) (8520-5000) /uL Lymph # (Auto) (4632-4711) /uL [place] # (Auto) (0-900) /uL Eos # (Auto) (0-450) /uL Baso # (Auto) (0-100) /uL ESR 3 (0-15) MM/HR PT (10.1-12.7) SECONDS INR (0.9-1.3) APTT (26-36) SECONDS Sodium (137-145) mmol/L Potassium (3.4-5.1) mmol/L Chloride (98-107) mmol/L Carbon Dioxide (22-32) mmol/L BUN (9-20) mg/dL Creatinine (0.66-1.25) mg/dL Estimated GFR (>60) mL/min BUN/Creatinine Ratio (6-22) Glucose (70-100) mg/dL Lactate 2.7 H (0.7-2.1) mmol/L Calcium (8.4-10.2) mg/dL Total Bilirubin (0.2-1.3) mg/dL AST (17-59) IU/L ALT (<50) IU/L Alkaline Phosphatase (38-126) U/L C-Reactive Protein < 0.5 (<1.0) mg/dL Total Protein (6.3-8.2) g/dL Albumin (3.5-5.0) g/dL Globulin (1.7-4.1) g/dL Albumin/Globulin Ratio (1.0-2.8) Lipase (23-300) U/L Procalcitonin (<0.5) ng/mL 07/06/23 Range/Units 13:06 WBC (4.5-11.0) X10^3/uL RBC (4.5-5.9) X10^6/uL Hgb (13.5-17.5) g/dL Hct (41-53) % MCV (80-100) fL MCH (26-34) PG MCHC (30-36) % RDW (11.6-14.8) % Plt Count (150-400) X10^3/uL Neut % (Auto) (50-75) % Lymph % (Auto) (25-40) % [place] % (Auto) (3-14) % Eos % (Auto) (2-4) % Baso % (Auto) (0-2) % Neut # (Auto) (6362-1133) /uL Lymph # (Auto) (9126-2271) /uL [place] # (Auto) (0-900) /uL Eos # (Auto) (0-450) /uL Baso # (Auto) (0-100) /uL ESR (0-15) MM/HR PT (10.1-12.7) SECONDS INR (0.9-1.3) APTT (26-36) SECONDS Sodium (137-145) mmol/L Potassium (3.4-5.1) mmol/L Chloride (98-107) mmol/L Carbon Dioxide (22-32) mmol/L BUN (9-20) mg/dL Creatinine (0.66-1.25) mg/dL Estimated GFR (>60) mL/min BUN/Creatinine Ratio (6-22) Glucose (70-100) mg/dL Lactate 1.0 (0.7-2.1) mmol/L Calcium (8.4-10.2) mg/dL Total Bilirubin (0.2-1.3) mg/dL AST (17-59) IU/L ALT (<50) IU/L Alkaline Phosphatase (38-126) U/L C-Reactive Protein (<1.0) mg/dL Total Protein (6.3-8.2) g/dL Albumin (3.5-5.0) g/dL Globulin (1.7-4.1) g/dL Albumin/Globulin Ratio (1.0-2.8) Lipase (23-300) U/L Procalcitonin (<0.5) ng/mL Point of Care Testing Glucose POC 97 Urine Dip Bedside Urine Glucose Negative Bedside Urine Bilirubin - Negative Bedside Urine Ketone - Negative Urine Specific [place] 1.020 Bedside Urine Occult Blood - Negative Bedside Urine pH 6.0 Bedside Urine Protein - Negative Bedside Urine Urobilinogen - Negative Bedside Urine Nitrite - Negative Bedside Urine Leukocytes - Negative Esterase Imaging Data MR Lumbar: Radiologist's Impression: PROCEDURE:? MR LUMBAR SPINE WO/W CON ? INDICATIONS:? fever recent procedure ? TECHNIQUE:? Noncontrast sagittal T1 spin echo and T2 fast spin echo, sagittal STIR, axial T1 and T2 fast spin echo through the lumbar spine.? In cases with scoliosis, additional coronal T2 fast spin echo may be performed.? After the administration of contrast, sagittal and axial T1 spin echo with fat saturation through the lumbar spine.? ? COMPARISON:? [facility], CT, CT KIDNEY URETER BLADDER (KUB), 03/16/2023, 15:57.? [facility], , MR LUMBAR SPINE WO CON, 12/01/2022, 12:24.? [facility], , MR LUMBAR SPINE WO CON, 07/10/2022, 19:26.? [facility], , MR LUMBAR SPINE WO/W CON, 08/22/2022, 8:01. ? FINDINGS:? Image quality:? Excellent.? ? Alignment and curvature:? There is normal bony alignment.? ? Marrow:? Marrow is of normal overall signal.? No acute vertebral body compression fractures.? No suspicious marrow enhancement.? ? Spinal cord:? Conus medullaris terminates at the L1 level.? Visualized spinal cord demonstrates normal signal, without suspicious enhancement.? ? Paraspinous soft tissues:? No paravertebral masses or abnormal enhancement.? ? T12-L1:? Normal appearance.? ? L1-L2:? Normal appearance.? ? L2-L3:? Normal appearance.? ? L3-L4:? No significant abnormality is seen. ? L4-L5:? The disc height and disk signal are relatively well-preserved.? Mild to moderate disc bulge is seen, with a central disc protrusion.? Mild to moderate facet hypertrophy is seen. Moderate bilateral neural foraminal narrowing is seen.? Mild central canal narrowing is seen.? When comparison is made with the prior images, these findings are similar.? ? L5-S1:? Normal appearance.? ? ? IMPRESSION:? ? No abnormal enhancement is seen. ? No postprocedural abscess can be seen.? ? Focal L4-L5 degenerative change is seen, which is similar to the prior MRI. ? Dictated by: Davey Meléndez M.D. on 07/06/2023 at 13:48 ? ? Approved by: Davey Meléndez M.D. on 07/06/2023 at 13:52 ? MDM Narrative Medical decision making narrative: Patient 47-year-old male if acute on chronic back pain after recent procedure presents today with sweating concern for sepsis and infection. He actually is afebrile here he is no leukocytosis initial lactate was elevated but quickly improved. He is given Toradol and Dilaudid for pain which seems to help some. ESR CRP procalcitonin are all negative. MRI does not show any abscess or complication from the procedure. Urinalysis is also negative. At this time probably postoperative pain. He takes Flexeril at home sometimes helps. Previously he has been prescribed a small amount of oxycodone. He reports that Percocet and [place] not really. I agree to only give him a small amount. Discharge Plan Departure Patient Disposition: Home Clinical Impression: Post-op pain Instructions: DI for Postoperative Pain Activity Restrictions/Additional Instructions: *You have been diagnosed with postoperative pain *What to do: At this time no complication is found. Your only going to get a small amount of pain medication if you need more please talk to your PCM *Continue to take medications as directed--> SENT TO [facility] Oxycodone 5 mg every 6 hours if needed for severe pain or at night to help you sleep. Do not combine with Flexeril. Motrin 600 mg every 6 hours if needed for [id number] pain *Follow up with your primary care provider in 2-3 days or call [phone] *Return to ER if you should have increasing pain numbness tingling weakness bladder changes or any new, worsening or concerning symptoms CONTROLLED SUBSTANCE DISCHARGE (Narcotoic/benzodiazepine/Flexeril/Phenergan) 1. You have been prescribed narcotic medications, it does have acetaminophen/Tylenol/paracetamol in it, DO NOT TAKE MORE THAN 4,00mg in 24 hours of Tylenol. TRAMADOL DOES NOT CONTAIN TYLENOL 2. Please understand that we cannot provide further refills of narcotics, benzodiazepines or controlled substances through the ED and her pain management will need to be through your provider. 3. While on these medications you cannot drive or operate heavy machinery. 4. You cannot sign legal documents or perform any duties such as this. 5. As long as you're taking opiate pain medications he should also be taking a stool softener such as Colace, Dulcolax, MiraLAX or prune juice, to help avoid constipation. Prescriptions: New oxycodone 5 mg tablet 5 mg PO Q6H PRN (Reason: pain) Qty: 8 0RF No Action atorvastatin 20 mg tablet 20 mg PO QAM lisinopril 40 mg tablet 40 mg PO DAILY duloxetine 60 mg capsule,delayed release(DR/EC) 60 mg PO DAILY Janumet 50-1,000 mg tablet 50 - 1,000 tab PO BID Rx Instructions: With Meals cyclobenzaprine 5 mg tablet 5 mg PO TID PRN (Reason: muscle spasm) Qty: 10 0RF prazosin 1 mg capsule 2 mg PO BID chlorthalidone 25 mg tablet 25 mg PO DAILY oxycodone 5 mg tablet 5 mg PO BID PRN (Reason: Pain, Severe) ibuprofen 800 mg tablet 800 mg PO Q6H PRN (Reason: Pain, Moderate) Referrals: Clay Black DO [Primary Care Provider] - Stand Alone Forms: Patient Portal/API
--- NOTE | 2023-07-06 11:52 | DI.MRI.S_ITS ---
PROCEDURE: MR LUMBAR SPINE WO/W CON INDICATIONS: fever recent procedure TECHNIQUE: Noncontrast sagittal T1 spin echo and T2 fast spin echo, sagittal STIR, axial T1 and T2 fast spin echo through the lumbar spine. In cases with scoliosis, additional coronal T2 fast spin echo may be performed. After the administration of contrast, sagittal and axial T1 spin echo with fat saturation through the lumbar spine. COMPARISON: [facility], CT, CT KIDNEY URETER BLADDER (KUB), 03/16/2023, 15:57. [facility], MR, MR LUMBAR SPINE WO CON, 12/01/2022, 12:24. [facility], MR, MR LUMBAR SPINE WO CON, 07/10/2022, 19:26. [facility], MR, MR LUMBAR SPINE WO/W CON, 08/22/2022, 8:01. FINDINGS: Image quality: Excellent. Alignment and curvature: There is normal bony alignment. Marrow: Marrow is of normal overall signal. No acute vertebral body compression fractures. No suspicious marrow enhancement. Spinal cord: Conus medullaris terminates at the L1 level. Visualized spinal cord demonstrates normal signal, without suspicious enhancement. Paraspinous soft tissues: No paravertebral masses or abnormal enhancement. T12-L1: Normal appearance. L1-L2: Normal appearance. L2-L3: Normal appearance. L3-L4: No significant abnormality is seen. L4-L5: The disc height and disk signal are relatively well-preserved. Mild to moderate disc bulge is seen, with a central disc protrusion. Mild to moderate facet hypertrophy is seen. Moderate bilateral neural foraminal narrowing is seen. Mild central canal narrowing is seen. When comparison is made with the prior images, these findings are similar. L5-S1: Normal appearance. IMPRESSION: No abnormal enhancement is seen. No postprocedural abscess can be seen. Focal L4-L5 degenerative change is seen, which is similar to the prior MRI. Dictated by: Davey Meléndez M.D. on 07/06/2023 at 13:48 Approved by: Davey Meléndez M.D. on 07/06/2023 at 13:52
[2023-07-06] MEDS: HYDROMORPHONE 1 MG INJ IV (12:28)
[2023-07-06] MEDS: KETOROLAC 30 MG/ML VIAL 15 MG IV (12:29)
[2023-07-06 12:50] LABS: Reflexed Lactate in 2 Hours Y
--- NOTE | 2023-07-06 14:32 | PC.NURSE ---
This patient returned from MRI diaphoretic. Patient is a known diabetic. Patient blood sugar taken and 97. Provider notified and authorized patient to receive some juice. This RN provided patient with 4oz apple juice.
[2023-07-06] MEDS: MORPHINE 4 MG/ML INJ IV (16:00)
== END 2023-07-06 16:19 | disposition home or self-care (01) ==
PROVIDERS: Emergency Provider Emergency Medicine; PCP Family Medicine
DX: G89.18 Other acute postprocedural pain (principal); M54.9 Dorsalgia, unspecified
CPT/HCPCS: 36415; 72158; 80053; 81003; 82962; 83605; 83690; 84145; 85025; 85610; 85651; 85730; 86140; 87040; 96361; 96374; 96375; 96376; 99284; A9579; J1170; J1885; J2270; J2405

== ENCOUNTER → 2023-08-14 18:12 | Outpatient (CLI) | payer OTHER, SELFPAY ==
--- NOTE | 2023-08-14 | DI.MRI.S_ITS ---
PROCEDURE: MR KNEE LT WO CON INDICATIONS: Pain in left knee TECHNIQUE: Noncontrast sagittal PD fast spin echo and T2 fast spin echo with fat saturation, sagittal 3-D FLASH with fat saturation; coronal T1 spin echo and PD fast spin echo with fat saturation, and axial PD fast spin echo with fat saturation through the knee. COMPARISON: None. FINDINGS: Image quality: Good Menisci: Medial: Intact. Meniscocapusular junction maintained. Lateral: There is edema in the region of the meniscal popliteal fascicles, no discrete tear otherwise. Cruciate ligaments: Intact Medial structures: MCL: Intact Pes anserine tendons: Intact Semimembranosus: [id number] insertional tendinopathy. Lateral structures: LCL: Mild edema of the proximal origin. Biceps femoris: Intact IT band: Intact Popliteus tendon: [id number] signal abnormality in the insertion. Anterior structures: Extensor mechanism: Mild insertional tendinopathy of the quadriceps. Fat pads: No pathologic edema Medial retinaculum: Intact. Trochlea: Unremarkable morphology. Bone and joint: Bones: Cystic changes and edema in the central portion of the posterior medial tibial plateau. Cartilage: Full-thickness fissuring in the median ridge of the patella in multiple regions, with mild subchondral edema. Similar findings also seen in the lateral aspect of the femoral trochlea. Mild cartilage heterogeneity elsewhere. Joint space: Ganglion cystic changes adjacent to the posterior joint space near the PCL insertion. No drainable effusion at this time. Campos's cyst: None Soft tissues: No significant vascular or other soft tissue pathology. IMPRESSION: Chondromalacia of the patellofemoral cartilage, with multifocal areas of trochlear and patellar median ridge full-thickness fissuring and underlying subchondral edema. Intact cruciate and collateral ligaments. Mild edema and tendinopathy signal is seen at the meniscal popliteal fascicles and near the popliteus insertion, suggestive of sprain. [id number] insertional semimembranosus tendinopathy. Mild insertional tendinopathy of the quadriceps. Cystic changes and nonspecific edema in the central portion of the posteromedial tibial plateau, adjacent to some probable ganglion cysts adjacent to the joint space, probably chronic. Dictated by: Lon Chakraborty M.D. on 08/17/2023 at 9:19 Approved by: Lon Chakraborty M.D. on 08/17/2023 at 9:26
== END ==
PROVIDERS: PCP Family Medicine; Referring Provider Family Medicine; Visit Provider Family Medicine
DX: M25.562 Pain in left knee (principal); M25.369 Other instability, unspecified knee; M94.262 Chondromalacia, left knee
CPT/HCPCS: 73721

== ENCOUNTER 2023-08-18 07:49 | Emergency (ER) | payer OTHER, SELFPAY ==
[2023-08-18] VITALS (7 sets, daily range): BP systolic 120–154; BP diastolic 80–98; PULSE 64–76; RESP 15–18; TEMP 36.8; O2SAT 94–99; BMI 29.7
--- NOTE | 2023-08-18 08:05 | ED.GENADULT ---
HPI - General Adult General Chief complaint: Abdominal Pain Stated complaint: abd pain T-1 Time Seen by Provider: 08/18/23 07:59 Source: patient Mode of arrival: Ambulatory Limitations: no limitations History of Present Illness HPI narrative: Patient is a 47-year-old male who stated that yesterday he started to periumbilical left-sided abdominal pain. He was very nauseous last evening. He did have a Jing fundoplication many years ago but no other abdominal surgeries. No testicular pain. No change in pain with urination or bowel movements. He does feel like he is potentially more constipated than normal. No skin rashes. No fevers. No trauma. Related Data Home Medications Medication Instructions Recorded Confirmed atorvastatin 20 mg tablet 20 mg PO QAM 01/15/22 07/06/23 duloxetine 60 mg capsule,delayed 60 mg PO DAILY 01/15/22 07/06/23 release lisinopril 40 mg tablet 40 mg PO DAILY 01/15/22 07/06/23 sitagliptin phosphate 50 50 - 1,000 tab PO BID 01/15/22 07/06/23 mg-metformin 1,000 mg tablet (Janumet) chlorthalidone 25 mg tablet 25 mg PO DAILY 07/06/23 07/06/23 ibuprofen 800 mg tablet 800 mg PO Q6H PRN Pain, Moderate 07/06/23 07/06/23 oxycodone 5 mg tablet 5 mg PO BID PRN Pain, Severe 07/06/23 07/06/23 prazosin 1 mg capsule 2 mg PO BID 07/06/23 07/06/23 Previous Rx's Medication Instructions Recorded cyclobenzaprine 5 mg tablet 5 mg PO TID PRN muscle spasm #10 12/01/22 tabs oxycodone 5 mg tablet 5 mg PO Q6H PRN pain #8 tabs 07/06/23 Allergies Allergy/AdvReac Type Severity Reaction Status Date / Time Penicillins Allergy Mild Rash Verified 08/18/23 07:55 Review of Systems Constitutional Constitutional: Reports system reviewed and no additional complaints, except as documented Cardiovascular Cardiovascular: Reports system reviewed and no additional complaints, except as documented Respiratory Respiratory: Reports system reviewed and no additional complaints, except as documented Gastrointestinal Gastrointestinal: Reports system reviewed and no additional complaints, except as documented Genitourinary Genitourinary: Reports system reviewed and no additional complaints, except as documented Integumentary/Breasts Skin/Breast: Reports system reviewed and no additional complaints, except as documented Patient History Medical History Arthritis COVID (~11/2021) Degenerative joint disease Depression Diabetes Fracture Headache, migraine Hepatic steatosis Hyperlipidemia Hypertension Traumatic complete tear of right rotator cuff Surgical History History of hernia repair History of vasectomy Social History household members: children Smoking Status: Never smoker Smoking Status: Never smoker alcohol intake frequency: holidays/special occasions only Substance Use Type: does not use Exam Initial Vital Signs Initial Vital Signs: Vital Signs Temperature 98.2 F 08/18/23 07:55 Pulse Rate 76 08/18/23 07:55 Respiratory Rate 18 08/18/23 07:55 Blood Pressure 134/98 H 08/18/23 07:55 Pulse Oximetry 97 08/18/23 07:55 Oxygen Delivery Method Room Air 08/18/23 07:55 HENMT Head: normal to inspection and normocephalic Resp Effort & Inspection: normal respiratory effort Auscultation: clear to auscultation bilaterally Cardio Rate: regular rate Rhythm: regular rhythm GI Inspection: normal to inspection and non-distended Palpation: soft, No firm, No guarding and tender (Left lower quadrant abdominal 10) Skin General: no rashes or lesions noted Neuro General: patient alert, patient awake and moves all extremities Extrem General: capillary refill normal Course Orders Ordered: ED Orders 08/18/23 08:12 Complete Blood Count AUTO DIFF Stat Comprehensive Metabolic Panel Stat Lipase Stat 08/18/23 08:45 CT abdomen pelvis w con Stat 08/18/23 09:41 US scrotum Stat Discontinued Medications Sodium Chloride (Normal Saline 0.9%) 1,000 mls @ 1,000 mls/hr IV BOLUS ONE Stop: 08/18/23 09:03 Last Infusion: 08/18/23 10:34 Dose: 0 mls/hr Documented By: Admin: 08/18/23 08:19 Dose: 1,000 mls/hr Documented By: Ketorolac Tromethamine (Ketorolac 30 Mg/Ml Vial) 30 mg IV NOW ONE Stop: 08/18/23 08:05 Last Admin: 08/18/23 08:19 Dose: 30 mg Documented By: ST Vital Signs Vital signs: Vital Signs - 8 hr 08/18/23 07:55 08/18/23 08:01 08/18/23 08:01 Temperature 98.2 F Pulse Rate 76 70 Respiratory Rate 18 Blood Pressure 134/98 H 154/93 H Pulse Oximetry 97 96 Oxygen Delivery Method Room Air 08/18/23 08:24 08/18/23 08:24 08/18/23 08:30 Temperature Pulse Rate 67 Respiratory Rate Blood Pressure 130/82 120/80 Pulse Oximetry 96 Oxygen Delivery Method 08/18/23 08:30 08/18/23 08:54 08/18/23 08:54 Temperature Pulse Rate 64 65 Respiratory Rate Blood Pressure 147/89 H Pulse Oximetry 94 96 Oxygen Delivery Method 08/18/23 09:00 08/18/23 09:00 Temperature Pulse Rate 64 Respiratory Rate Blood Pressure 130/82 Pulse Oximetry 95 Oxygen Delivery Method Medical Decision Making Lab Data Lab results reviewed: Yes I reviewed the patient's lab results. 08/18/23 08:12 08/18/23 08:12 Labs: Lab Results 08/18/23 08/18/23 08/18/23 Range/Units 08:12 08:12 08:12 WBC 5.5 (4.5-11.0) X10^3/uL RBC 5.54 (4.5-5.9) X10^6/uL Hgb 15.9 (13.5-17.5) g/dL Hct 44.2 (41-53) % MCV 79.9 L (80-100) fL MCH 28.6 (26-34) PG MCHC 35.9 (30-36) % RDW 14.0 (11.6-14.8) % Plt Count 192 (150-400) X10^3/uL Neut % (Auto) 63.4 (50-75) % Lymph % (Auto) 25.1 (25-40) % Sargent % (Auto) 8.4 (3-14) % Eos % (Auto) 2.4 (2-4) % Baso % (Auto) 0.7 (0-2) % Neut # (Auto) 3500 (1487-6839) /uL Lymph # (Auto) 1400 (9265-3779) /uL Sargent # (Auto) 500 (0-900) /uL Eos # (Auto) 100 (0-450) /uL Baso # (Auto) 0 (0-100) /uL Sodium 137 (137-145) mmol/L Potassium 3.5 (3.4-5.1) mmol/L Chloride 102 (98-107) mmol/L Carbon Dioxide 27 (22-32) mmol/L BUN 19 (9-20) mg/dL Creatinine 0.74 (0.66-1.25) mg/dL Estimated GFR > 60 (>60) mL/min BUN/Creatinine Ratio 25.7 H (6-22) Glucose 143 H (70-100) mg/dL Calcium 9.6 (8.4-10.2) mg/dL Total Bilirubin 0.7 (0.2-1.3) mg/dL AST 31 (17-59) IU/L ALT 43 (<50) IU/L Alkaline Phosphatase 71 (38-126) U/L Total Protein 7.8 (6.3-8.2) g/dL Albumin 4.6 (3.5-5.0) g/dL Globulin 3.2 (1.7-4.1) g/dL Albumin/Globulin Ratio 1.4 (1.0-2.8) Lipase 69 (23-300) U/L Point of Care Testing Test Results Not applicable Urine Dip Bedside Urine Glucose Negative Bedside Urine Bilirubin - Negative Bedside Urine Ketone - Negative Urine Specific Paradise 1.005 Bedside Urine Occult Blood - Negative Bedside Urine pH 6.0 Bedside Urine Protein - Negative Bedside Urine Urobilinogen - Negative Bedside Urine Nitrite - Negative Bedside Urine Leukocytes - Negative Esterase Point of care testing: Point of Care Testing Test Results Not applicable Urine Dip Bedside Urine Glucose Negative Bedside Urine Bilirubin - Negative Bedside Urine Ketone - Negative Urine Specific Paradise 1.005 Bedside Urine Occult Blood - Negative Bedside Urine pH 6.0 Bedside Urine Protein - Negative Bedside Urine Urobilinogen - Negative Bedside Urine Nitrite - Negative Bedside Urine Leukocytes - Negative Esterase Imaging Data CT scan - abdomen/pelvis: Radiologist's Impression: PROCEDURE:? CT ABDOMEN PELVIS W CON ? INDICATIONS:? LLQ abd pain ? TECHNIQUE:? After the administration of intravenous contrast, axial sections acquired from the lung bases to the pubic symphysis.? Coronal and sagittal reformats were performed.? For radiation dose reduction, the following was used:? automated exposure control, adjustment of mA and/or kV according to patient size.? ? COMPARISON:? [facility], CT, CT KIDNEY URETER BLADDER (KUB), 03/16/2023, 15:57.? [facility], CT, CT ABDOMEN PELVIS W CON, 09/02/2021, 19:07. ? FINDINGS:? Image quality:? Excellent.? ? Lung bases:? Unremarkable. Heart:? No significant findings. ? ABDOMEN: Liver:? Decreased in attenuation, consistent with hepatic steatosis. Gallbladder:? Unremarkable.? ? Biliary ducts:? Unremarkable.? ? Pancreas:? Unremarkable.? ? Spleen:? Unremarkable.? ? Adrenal Glands:? Unremarkable.? ? Kidneys and Ureters:? Right renal simple appearing cyst.? Stable 2 mm nonobstructing stone within the midpole the right kidney.? No hydronephrosis. ? Stomach and Bowel:? Stomach, small bowel loops, and colon are unremarkable.? Few diverticula without evidence of diverticulitis.? Normal appendix. Peritoneum:? No abnormal intraperitoneal fluid.? No free air.? ? Ventral Wall: ? No hernias.? Abdominal Nodes:? No retroperitoneal or mesenteric adenopathy by size criteria.? Vessels:? Aorta and inferior vena cava are normal in size.? Mild atherosclerotic vascular calcifications. ? PELVIS: Pelvic Organs:? Unremarkable.? ? Bladder:? Unremarkable.? ? Pelvic Nodes: No enlarged lymph nodes.? Miscellaneous:? Small left inguinal hernia containing fat.. ? ? ? Bones:? Unremarkable.? IMPRESSION:? ? 1. No acute findings within the abdomen or pelvis to explain patient's symptoms. 2. Redemonstration of 2 mm nonobstructing right renal stone.? No hydronephrosis. 3. Hepatic steatosis. 4. Mild diverticulosis without evidence of diverticulitis.? Normal appendix. Scrotum: Radiologist's Impression: PROCEDURE:? US SCROTUM ? INDICATIONS:? PAIN ? TECHNIQUE:? Real-time scanning was performed of the scrotum and testicles, with image documentation.? Color and pulse Doppler interrogation was performed of both testicles.? ? COMPARISON:? [facility], US, US SCROTUM, 03/16/2023, 18:44. ? FINDINGS:? ? Right:? Testicle is normal in size at 5.6 x 2.9 x 4.0 cm, and homogenous in echotexture.? Epididymis is normal in overall size and morphology.? Small hydrocele.? No varicoceles.? Overlying scrotal skin is normal in thickness.? ? Left:? Testicle is normal in size at 5.4 x 2.8 x 4.0 cm, and homogeneous in echotexture.? Epididymis is normal in overall size and morphology.? Small hydrocele.? No? varicoceles.? Overlying scrotal skin is normal in thickness.? ? Doppler:? Color and pulse Doppler demonstrate normal and symmetric arterial flow in both testicles.? ? Inguinal areas are within normal limits. ? IMPRESSION:? ? The testes and epididymides are normal in size and appearance with symmetric and normal vascularity. MDM Narrative Medical decision making narrative: CT scan shows no acute pathology. Scrotal ultrasound shows no acute pathology. Labs are unremarkable. Unsure the exact etiology however does not appear to be an infectious or surgical issue. I did discuss this with the patient. We did discuss return precautions to include worsening symptoms, change in symptoms or development of a rash. He expressed understanding and agreement with this plan. Discharge Plan Departure Patient Disposition: Home Clinical Impression: Abdominal pain Instructions: DI for Abdominal Pain-Adult Activity Restrictions/Additional Instructions: Your workup here in the emergency department is very reassuring however we do not have an exact cause of your abdominal discomfort. Recommend that you continue to take all of your medications as directed. Return to the emergency department for new or worsening symptoms like we discussed Prescriptions: No Action atorvastatin 20 mg tablet 20 mg PO QAM lisinopril 40 mg tablet 40 mg PO DAILY duloxetine 60 mg capsule,delayed release(DR/EC) 60 mg PO DAILY Janumet 50-1,000 mg tablet 50 - 1,000 tab PO BID Rx Instructions: With Meals cyclobenzaprine 5 mg tablet 5 mg PO TID PRN (Reason: muscle spasm) Qty: 10 0RF prazosin 1 mg capsule 2 mg PO BID chlorthalidone 25 mg tablet 25 mg PO DAILY oxycodone 5 mg tablet 5 mg PO BID PRN (Reason: Pain, Severe) ibuprofen 800 mg tablet 800 mg PO Q6H PRN (Reason: Pain, Moderate) oxycodone 5 mg tablet 5 mg PO Q6H PRN (Reason: pain) Qty: 8 0RF Referrals: Clay Black DO [Primary Care Provider] - Stand Alone Forms: Patient Portal/API
[2023-08-18] MEDS: KETOROLAC 30 MG/ML VIAL IV (08:19)
[2023-08-18] MEDS: SODIUM CHLORIDE 0.9% 1,000 ML 1000 ML IV (08:19)
[2023-08-18 08:38] LABS: Alanine Aminotransferase 43 IU/L (<50); Albumin 4.6 g/dL (3.5-5.0); Albumin Globulin Ratio 1.4 (1.0-2.8); Alkaline Phosphatase 71 U/L (38-126); Aspartate Aminotransferase 31 IU/L (17-59); BUN Creatinine Ratio 25.7 (6-22); Bilirubin Total 0.7 mg/dL (0.2-1.3); Blood Urea Nitrogen 19 mg/dL (9-20); Calcium 9.6 mg/dL (8.4-10.2); Carbon Dioxide 27 mmol/L (22-32); Chloride 102 mmol/L (98-107); Estimated Glomerular Filt Rate > 60 mL/min (>60); Globulin 3.2 g/dL (1.7-4.1); Glucose 143 mg/dL (70-100); HEMOLYSIS 25 (0-50); Potassium 3.5 mmol/L (3.4-5.1); Sodium 137 mmol/L (137-145); Total Protein 7.8 g/dL (6.3-8.2)
--- NOTE | 2023-08-18 08:45 | DI.CT.S_ITS ---
PROCEDURE: CT ABDOMEN PELVIS W CON INDICATIONS: LLQ abd pain TECHNIQUE: After the administration of intravenous contrast, axial sections acquired from the lung bases to the pubic symphysis. Coronal and sagittal reformats were performed. For radiation dose reduction, the following was used: automated exposure control, adjustment of mA and/or kV according to patient size. COMPARISON: [facility], CT, CT KIDNEY URETER BLADDER (KUB), 03/16/2023, 15:57. [facility], CT, CT ABDOMEN PELVIS W CON, 09/02/2021, 19:07. FINDINGS: Image quality: Excellent. Lung bases: Unremarkable. Heart: No significant findings. ABDOMEN: Liver: Decreased in attenuation, consistent with hepatic steatosis. Gallbladder: Unremarkable. Biliary ducts: Unremarkable. Pancreas: Unremarkable. Spleen: Unremarkable. Adrenal Glands: Unremarkable. Kidneys and Ureters: Right renal simple appearing cyst. Stable 2 mm nonobstructing stone within the midpole the right kidney. No hydronephrosis. Stomach and Bowel: Stomach, small bowel loops, and colon are unremarkable. Few diverticula without evidence of diverticulitis. Normal appendix. Peritoneum: No abnormal intraperitoneal fluid. No free air. Ventral Wall: No hernias. Abdominal Nodes: No retroperitoneal or mesenteric adenopathy by size criteria. Vessels: Aorta and inferior vena cava are normal in size. Mild atherosclerotic vascular calcifications. PELVIS: Pelvic Organs: Unremarkable. Bladder: Unremarkable. Pelvic Nodes: No enlarged lymph nodes. Miscellaneous: Small left inguinal hernia containing fat.. Bones: Unremarkable. IMPRESSION: 1. No acute findings within the abdomen or pelvis to explain patient's symptoms. 2. Redemonstration of 2 mm nonobstructing right renal stone. No hydronephrosis. 3. Hepatic steatosis. 4. Mild diverticulosis without evidence of diverticulitis. Normal appendix. Dictated by: Elgin Wadsworth M.D. on 08/18/2023 at 8:58 Approved by: Elgin Wadsworth M.D. on 08/18/2023 at 9:02
[2023-08-18 09:10] LABS: Add Manual Diff / Slide Review NO; Basophils Absolute Auto 0 /uL (0-100); Basophils Percent Auto 0.7 % (0-2); Eosinophils Absolute Auto 100 /uL (0-450); Eosinophils Percent Auto 2.4 % (2-4); Hematocrit 44.2 % (41-53); Hemoglobin 15.9 g/dL (13.5-17.5); Lymphocytes Absolute Auto 1400 /uL (1100-4500); Lymphocytes Percent Auto 25.1 % (25-40); Mean Corpuscular HGB Conc 35.9 % (30-36); Mean Corpuscular Hemoglobin 28.6 PG (26-34); Mean Corpuscular Volume 79.9 fL (80-100); Monocytes Absolute Auto 500 /uL (0-900); Monocytes Percent Auto 8.4 % (3-14); Neutrophils Absolute Auto 3500 /uL (1500-7000); Neutrophils Percent Auto 63.4 % (50-75); Platelet Count 192 X10^3/uL (150-400); Red Blood Cell Count 5.54 X10^6/uL (4.5-5.9); White Blood Cell Count 5.5 X10^3/uL (4.5-11.0)
[2023-08-18 09:37] LABS: Lipase 69 U/L (23-300)
--- NOTE | 2023-08-18 09:41 | DI.US.S_ITS ---
PROCEDURE: US SCROTUM INDICATIONS: PAIN TECHNIQUE: Real-time scanning was performed of the scrotum and testicles, with image documentation. Color and pulse Doppler interrogation was performed of both testicles. COMPARISON: [facility], , US SCROTUM, 03/16/2023, 18:44. FINDINGS: Right: Testicle is normal in size at 5.6 x 2.9 x 4.0 cm, and homogenous in echotexture. Epididymis is normal in overall size and morphology. Small hydrocele. No varicoceles. Overlying scrotal skin is normal in thickness. Left: Testicle is normal in size at 5.4 x 2.8 x 4.0 cm, and homogeneous in echotexture. Epididymis is normal in overall size and morphology. Small hydrocele. No varicoceles. Overlying scrotal skin is normal in thickness. Doppler: Color and pulse Doppler demonstrate normal and symmetric arterial flow in both testicles. Inguinal areas are within normal limits. IMPRESSION: The testes and epididymides are normal in size and appearance with symmetric and normal vascularity. Dictated by: Elgin Wadsworth M.D. on 08/18/2023 at 10:31 Approved by: Elgin Wadsworth M.D. on 08/18/2023 at 10:33
== END 2023-08-18 11:37 | disposition home or self-care (01) ==
PROVIDERS: Emergency Provider Emergency Medicine; PCP Family Medicine
DX: R10.33 Periumbilical pain (principal)
CPT/HCPCS: 36415; 74177; 76870; 80053; 81003; 81025; 83690; 85025; 96361; 96374; 99284; J1885; Q9967

== ENCOUNTER 2023-11-25 11:25 | Emergency (ER) | payer OTHER, SELFPAY ==
[2023-11-25 11:42] VITALS: BP 160/95; PULSE 90; RESP 22; TEMP 37.1; O2SAT 97; BMI 30.9
--- NOTE | 2023-11-25 11:49 | DI.RAD.S_ITS ---
PROCEDURE: XR CHEST 2V INDICATIONS: cough worsening after 3 weeks TECHNIQUE: 2 views of the chest were acquired. COMPARISON: [facility], CR, XR CHEST 1V, 02/13/2022, 12:19. FINDINGS: Surgical changes and devices: None. Lungs and pleura: Lungs are clear. No pleural effusions or pneumothorax. Mediastinum: Mediastinal contours are normal. Heart size is normal. Bones and chest wall: No suspicious bony abnormalities. Soft tissues appear unremarkable. IMPRESSION: No acute process. Dictated by: Cinthia Bragg M.D. on 11/25/2023 at 12:15 Approved by: Cinthia Bragg M.D. on 11/25/2023 at 12:15
[2023-11-25 12:42] LABS: Influenza A - CEPHEID Flu A NEGATIVE (NEGATIVE); Influenza B - CEPHEID Flu B NEGATIVE (NEGATIVE); Respiratory Syncytial Virus Negative (Negative)
[2023-11-25 12:47] LABS: COVID-19 CEPHEID 4-PLEX PCR POSITIVE (Negative)
[2023-11-25 14:25] VITALS: BP 153/82; PULSE 94; RESP 22; O2SAT 97
[2023-11-25 15:45] VITALS: PULSE 88; O2SAT 96
--- NOTE | 2023-11-25 15:46 | ED.GENADULT ---
HPI - General Adult General Chief complaint: Upper Respiratory Symptoms Stated complaint: SOB/COUGH COVID+ 3WKS AGO Time Seen by Provider: 11/25/23 15:41 Source: patient Mode of arrival: Ambulatory History of Present Illness HPI narrative: Patient is a 48-year-old male. Three weeks ago he tested positive for COVID. He states that his symptoms were improving but not completely resolved. He then went on vacation. When he got back from vacation in his symptoms are now worsening again to include shortness of breath and cough. Also having fevers and body aches. He also stated that last evening there were some areas on his lower abdomen/suprapubic area that became acutely painful and were draining what appeared to be purulent material last night. He denies any urinary symptoms. No other lesions or lumps or bumps noted. He has no underlying lung pathology. Related Data Home Medications Medication Instructions Recorded Confirmed atorvastatin 20 mg tablet 20 mg PO QAM 01/15/22 07/06/23 duloxetine 60 mg capsule,delayed 60 mg PO DAILY 01/15/22 07/06/23 release lisinopril 40 mg tablet 40 mg PO DAILY 01/15/22 07/06/23 sitagliptin phosphate 50 50 - 1,000 tab PO BID 01/15/22 07/06/23 mg-metformin 1,000 mg tablet (Jamesumejerardo) chlorthalidone 25 mg tablet 25 mg PO DAILY 07/06/23 07/06/23 ibuprofen 800 mg tablet 800 mg PO Q6H PRN Pain, Moderate 07/06/23 07/06/23 oxycodone 5 mg tablet 5 mg PO BID PRN Pain, Severe 07/06/23 07/06/23 prazosin 1 mg capsule 2 mg PO BID 07/06/23 07/06/23 Previous Rx's Medication Instructions Recorded cyclobenzaprine 5 mg tablet 5 mg PO TID PRN muscle spasm #10 12/01/22 tabs oxycodone 5 mg tablet 5 mg PO Q6H PRN pain #8 tabs 07/06/23 Allergies Allergy/AdvReac Type Severity Reaction Status Date / Time Penicillins Allergy Mild Rash Verified 08/18/23 07:55 Review of Systems Constitutional Constitutional: Reports system reviewed and no additional complaints, except as documented Cardiovascular Cardiovascular: Reports system reviewed and no additional complaints, except as documented Respiratory Respiratory: Reports system reviewed and no additional complaints, except as documented Gastrointestinal Gastrointestinal: Reports system reviewed and no additional complaints, except as documented Integumentary/Breasts Skin/Breast: Reports system reviewed and no additional complaints, except as documented Patient History Medical History Hepatic steatosis COVID (~11/2021) Degenerative joint disease Headache, migraine Hypertension Hyperlipidemia Arthritis Fracture Depression Diabetes Traumatic complete tear of right rotator cuff Surgical History History of hernia repair History of vasectomy Social History household members: children Smoking Status: Never smoker Smoking Status: Never smoker alcohol intake frequency: holidays/special occasions only Substance Use Type: does not use Exam Initial Vital Signs Initial Vital Signs: Vital Signs Temperature 98.8 F 11/25/23 11:42 Pulse Rate 90 11/25/23 11:42 Respiratory Rate 22 11/25/23 11:42 Blood Pressure 160/95 H 11/25/23 11:42 Pulse Oximetry 97 11/25/23 11:42 Oxygen Delivery Method Room Air 11/25/23 11:42 Resp Effort & Inspection: normal respiratory effort Auscultation: clear to auscultation bilaterally Cardio Rate: regular rate Skin Other: Two small areas of what appeared to be draining pustules in the suprapubic region. No surrounding erythema. Course Orders Ordered: ED Orders 11/25/23 11:49 Chest [XR chest 2V] Stat 11/25/23 11:53 Covid-19 + FLU A/B + RSV - PCR Stat Vital Signs Vital signs: Vital Signs - 8 hr 11/25/23 11:42 11/25/23 14:25 11/25/23 15:45 Temperature 98.8 F Pulse Rate 90 94 H 88 Respiratory Rate 22 22 Blood Pressure 160/95 H 153/82 H Pulse Oximetry 97 97 96 Oxygen Delivery Method Room Air Room Air 11/25/23 15:47 11/25/23 15:47 11/25/23 16:00 Temperature Pulse Rate 86 75 Respiratory Rate Blood Pressure 120/78 Pulse Oximetry 96 95 Oxygen Delivery Method 11/25/23 16:00 Temperature Pulse Rate Respiratory Rate Blood Pressure 125/81 Pulse Oximetry Oxygen Delivery Method Medical Decision Making Lab Data Lab results reviewed: Yes I reviewed the patient's lab results. Labs: Lab Results 11/25/23 Range/Units 11:53 SARS-CoV-2 (PCR) Positive H (Negative) Influenza A (RT-PCR) Flu a negative (NEGATIVE) Influenza B (RT-PCR) Flu b negative (NEGATIVE) RSV (PCR) Negative (Negative) Imaging Data Chest x-ray: Radiologist's Impression: PROCEDURE: XR CHEST 2V INDICATIONS: cough worsening after 3 weeks TECHNIQUE: 2 views of the chest were acquired. COMPARISON: [facility], , XR CHEST 1V, 02/13/2022, 12:19. FINDINGS: Surgical changes and devices: None. Lungs and pleura: Lungs are clear. No pleural effusions or pneumothorax. Mediastinum: Mediastinal contours are normal. Heart size is normal. Bones and chest wall: No suspicious bony abnormalities. Soft tissues appear unremarkable. IMPRESSION: No acute process. MDM Narrative Medical decision making narrative: Patient is positive for COVID. This would explain his fevers, cough, body aches and fatigue. There was no indication for antibiotics. He is outside the window for starting any Paxlovid. I did discuss this with him. Supportive treatment for now. Bedside ultrasound over the areas in his suprapubic region do not show any underlying abscess. There was no surrounding erythema. I suspect that these areas will improve over the next couple days. We discussed how he can keep these clean at home with soap and water. He was given return precautions. He expressed understanding and agreement. Discharge Plan Departure Patient Disposition: Home Clinical Impression: COVID-19 Instructions: COVID-19 Activity Restrictions/Additional Instructions: You can take Tylenol/ibuprofen for any fevers or discomfort or body aches. Recommend you follow all the current CDC guidelines with regard to quarantine and COVID-19. Contact your primary care doctor for follow-up. Return to the emergency department for new symptoms. Prescriptions: No Action atorvastatin 20 mg tablet 20 mg PO QAM lisinopril 40 mg tablet 40 mg PO DAILY duloxetine 60 mg capsule,delayed release(DR/EC) 60 mg PO DAILY Janumet 50-1,000 mg tablet 50 - 1,000 tab PO BID Rx Instructions: With Meals cyclobenzaprine 5 mg tablet 5 mg PO TID PRN (Reason: muscle spasm) Qty: 10 0RF prazosin 1 mg capsule 2 mg PO BID chlorthalidone 25 mg tablet 25 mg PO DAILY oxycodone 5 mg tablet 5 mg PO BID PRN (Reason: Pain, Severe) ibuprofen 800 mg tablet 800 mg PO Q6H PRN (Reason: Pain, Moderate) oxycodone 5 mg tablet 5 mg PO Q6H PRN (Reason: pain) Qty: 8 0RF Referrals: Clay Black DO [Primary Care Provider] - Stand Alone Forms: Patient Portal/API
[2023-11-25 15:47] VITALS: BP 120/78; PULSE 86; O2SAT 96
[2023-11-25 16:00] VITALS: BP 125/81; PULSE 75; O2SAT 95
--- NOTE | 2023-11-25 16:21 | PC.NURSE ---
lung and groin exam deferred to Dr. Genao
== END 2023-11-25 16:27 | disposition home or self-care (01) ==
PROVIDERS: Emergency Provider Emergency Medicine; PCP Family Medicine
DX: U07.1 COVID-19 (principal)
CPT/HCPCS: 0241U; 71046; 99283

== ENCOUNTER 2024-02-10 14:09 | Emergency (ER) | payer OTHER, SELFPAY ==
[2024-02-10 14:13] VITALS: BP 137/87; PULSE 88; RESP 18; TEMP 36.6; O2SAT 98; BMI 30.3
--- NOTE | 2024-02-10 14:17 | DI.RAD.S_ITS ---
PROCEDURE: XR HAND RT MIN 3V INDICATIONS: injury/pain/felt a pop TECHNIQUE: 3 views of the hand(s) acquired. COMPARISON: None. FINDINGS: Bones: No fractures or dislocations. Carpal bones are normally aligned. No suspicious bony lesions. Soft tissues: No suspicious soft tissue calcifications. IMPRESSION: No acute right hand fracture or dislocation. Dictated by: Santos Jain M.D. on 02/10/2024 at 16:13 Approved by: Santos Jain M.D. on 02/10/2024 at 16:14
[2024-02-10 16:31] VITALS: BP 118/64; PULSE 78; RESP 16; O2SAT 97
--- NOTE | 2024-02-11 09:44 | ED.UPPEXIN ---
HPI - Extremity Injury (Upper) <Chika Brandt PA-C - Last Filed: 02/11/24 09:49> General Chief Complaint: Extremity Injury, Upper Stated Complaint: rt middle finger/hand injury/pain Time Seen by Provider: 02/10/24 14:28 Source: patient Mode of arrival: Ambulatory History of Present Illness HPI narrative: Patient is a 48-year-old male who presents with right hand injury. He was moving boxes of equipment at work and his finger was trapped under box and pulled backwards/dorsally. This occurred 5 days ago. He felt a pop and experienced pain over the right 3rd MCP joint. Since then, he has noticed swelling and decreased range of motion well as a ulnar deviation of the right 3rd finger. He attempted to see his PCP but they did not have an appointment so they advised to the emergency room. He is requesting an x-ray per his PCP. He is tried ice, Tylenol and ibuprofen with minimal relief. He reports intermittent tingling of the right 3rd finger. Related Data Home Medications Medication Instructions Recorded Confirmed atorvastatin 20 mg tablet 20 mg PO QAM 01/15/22 07/06/23 duloxetine 60 mg capsule,delayed 60 mg PO DAILY 01/15/22 07/06/23 release lisinopril 40 mg tablet 40 mg PO DAILY 01/15/22 07/06/23 sitagliptin phosphate 50 50 - 1,000 tab PO BID 01/15/22 07/06/23 mg-metformin 1,000 mg tablet (Janumet) chlorthalidone 25 mg tablet 25 mg PO DAILY 07/06/23 07/06/23 ibuprofen 800 mg tablet 800 mg PO Q6H PRN Pain, Moderate 07/06/23 07/06/23 oxycodone 5 mg tablet 5 mg PO BID PRN Pain, Severe 07/06/23 07/06/23 prazosin 1 mg capsule 2 mg PO BID 07/06/23 07/06/23 Previous Rx's Medication Instructions Recorded cyclobenzaprine 5 mg tablet 5 mg PO TID PRN muscle spasm #10 12/01/22 tabs oxycodone 5 mg tablet 5 mg PO Q6H PRN pain #8 tabs 07/06/23 Allergies Allergy/AdvReac Type Severity Reaction Status Date / Time Penicillins Allergy Mild Rash Verified 08/18/23 07:55 Review of Systems <Chika Brandt PA-C - Last Filed: 02/11/24 09:49> Review of Systems ROS Unobtainable: All systems reviewed & are unremarkable except as noted in HPI and below Patient History <Chika Brandt PA-C - Last Filed: 02/11/24 09:49> Medical History Hepatic steatosis COVID (~11/2021) Degenerative joint disease Headache, migraine Hypertension Hyperlipidemia Arthritis Fracture Depression Diabetes Traumatic complete tear of right rotator cuff Surgical History History of hernia repair History of vasectomy Social History household members: children Smoking Status: Never smoker Smoking Status: Never smoker alcohol intake frequency: holidays/special occasions only Substance Use Type: does not use Exam <Chika Brandt PA-C - Last Filed: 02/11/24 09:49> Narrative Exam Narrative: GENERAL: 48 year old patient appears stated age. Well-developed patient, in no acute distress. NEURO: AOx3. HEAD: Atraumatic. Normocephalic. EYES: Pupils equal round and reactive. Extraocular motions intact. No scleral icterus. No injection or drainage. ENT: Nose without bleeding or purulent drainage. Airway patent. RESPIRATORY: No distress. EXTREMITIES: Mild edema surrounding the right 3rd MCP joint. Joint is painful to light palpation. Patient has decreased strategy associate strength with the 3rd and 4th fingers. Sensation is intact. Capillary refill is 2 seconds. Fingers are warm and pink. SKIN: No rash or erythema of visible areas Initial Vital Signs Initial Vital Signs: Vital Signs Temperature 98 F 02/10/24 14:13 Pulse Rate 88 02/10/24 14:13 Respiratory Rate 18 02/10/24 14:13 Blood Pressure 137/87 02/10/24 14:13 Pulse Oximetry 98 02/10/24 14:13 Oxygen Delivery Method Room Air 02/10/24 14:13 <Darby Garcia MD - Last Filed: 02/11/24 17:58> Initial Vital Signs Initial Vital Signs: Vital Signs Temperature 98 F 02/10/24 14:13 Pulse Rate 88 02/10/24 14:13 Respiratory Rate 18 02/10/24 14:13 Blood Pressure 137/87 02/10/24 14:13 Pulse Oximetry 98 02/10/24 14:13 Oxygen Delivery Method Room Air 02/10/24 14:13 MDM - Extremity Injury (Upper) <Chika Brandt PA-C - Last Filed: 02/11/24 09:49> Imaging Data Extremity x-ray #1: Radiologist's Impression: PROCEDURE: XR HAND RT MIN 3V INDICATIONS: injury/pain/felt a pop TECHNIQUE: 3 views of the hand(s) acquired. COMPARISON: None. FINDINGS: Bones: No fractures or dislocations. Carpal bones are normally aligned. No suspicious bony lesions. Soft tissues: No suspicious soft tissue calcifications. IMPRESSION: No acute right hand fracture or dislocation. Dictated by: Santos Jain M.D. on 02/10/2024 at 16:13 Approved by: Santos Jain M.D. on 02/10/2024 at 16:14 [facility] Narrative Medical decision making narrative: Multiple etiologies for patient's symptoms considered including, but not limited to: Fracture, dislocation, soft tissue injury X-ray negative for bony abnormality. There is no evidence of neurovascular compromise. Suspect soft tissue injury with associated pain and swelling. Advised continued rest, ice, gentle range of motion. Suggested hand therapy for further assessment and strengthening. Patient will contact his PCP and request referral to hand therapist. Patient has no further questions. Patient's symptoms improved over duration of stay with above-stated therapies. Findings and discharge diagnosis discussed with patient/family followed by verbalization of understanding Return precautions discussed with patient/family whom verbalize understanding of diagnosis and plan Discharge Plan Departure Patient Disposition: Home Clinical Impression: Soft tissue injury of right hand Qualifiers: Encounter type: initial encounter Qualified Code(s): S69.91XA - Unspecified injury of right wrist, hand and finger(s), initial encounter Instructions: How To Perform RICE (Rest, Ice, Compress, Elevate) Activity Restrictions/Additional Instructions: *You have been diagnosed with soft tissue injury of the right hand. There is no bony abnormality on x-ray. I suggest following up with your PCP to discuss a possible referral to hand therapy. Continue ice and NSAIDs for pain. *What to do: *Please continue to take your regular medications as directed. [ ] New medication prescriptions sent to your pharmacy: [ ] [ ] New medication written as a paper prescription [x] No new medications given *Please follow up with your primary care provider in 2-3 days, call for an appointment. Let them know you were seen in the Emergency Department and that we ask that you be seen in follow up. We will electronically transmit a record of today's note if your PCP is in our system *If you do not have a primary care provider please contact the [facility] Resource line at [phone]. They will ask some questions about your medical history and help get you set up with a doctor in the community. *Return to Emergency Department if you should have any new, worsening or concerning symptoms, such as [fever greater than 101 F, shaking chills, worsening pain, persistent vomiting or other concerning symptoms]. Prescriptions: No Action atorvastatin 20 mg tablet 20 mg PO QAM lisinopril 40 mg tablet 40 mg PO DAILY duloxetine 60 mg capsule,delayed release(DR/EC) 60 mg PO DAILY Janumet 50-1,000 mg tablet 50 - 1,000 tab PO BID Rx Instructions: With Meals cyclobenzaprine 5 mg tablet 5 mg PO TID PRN (Reason: muscle spasm) Qty: 10 0RF prazosin 1 mg capsule 2 mg PO BID chlorthalidone 25 mg tablet 25 mg PO DAILY oxycodone 5 mg tablet 5 mg PO BID PRN (Reason: Pain, Severe) ibuprofen 800 mg tablet 800 mg PO Q6H PRN (Reason: Pain, Moderate) oxycodone 5 mg tablet 5 mg PO Q6H PRN (Reason: pain) Qty: 8 0RF Referrals: Clay Black DO [Primary Care Provider] - Stand Alone Forms: Patient Portal/API ED Sign-out <Darby Garcia MD - Last Filed: 02/11/24 17:58> Cosign ED Attending Rachel Attestation: I was immediately available in the department for consultation throughout this patient's visit. Darby Garcia MD
== END 2024-02-10 16:31 | disposition home or self-care (01) ==
PROVIDERS: Emergency Provider Physician Assistant; PCP Family Medicine
DX: S69.91XA Unspecified injury of right wrist, hand and finger(s), initial encounter (principal); W23.1XXA Caught, crushed, jammed, or pinched between stationary objects, initial encounter
CPT/HCPCS: 73130; 99281; 99282

== ENCOUNTER 2024-05-30 05:44 | Emergency (ER) | payer OTHER, SELFPAY ==
[2024-05-30] VITALS (11 sets, daily range): BP systolic 123–137; BP diastolic 79–95; PULSE 58–74; RESP 16; TEMP 36.6; O2SAT 94–98; BMI 29.7
--- NOTE | 2024-05-30 05:50 | ED.GENADULT ---
HPI - General Adult <Srini Wayne MD - Last Filed: 05/30/24 14:36> General Chief complaint: Headache Stated complaint: migraine, back pain Time Seen by Provider: 05/30/24 05:47 History of Present Illness HPI narrative: 48-year-old male complains of headache ?all over? acute onset 5:00 p.m. last night, some posterior right neck pain, tingling to the left fingers. He takes no blood thinner medications. No injury or trauma. No visual complaints. Unresponsive to Tylenol Motrin. Associated with some nausea but no vomiting. Worse with supine position, improved upright. History of recurrent headaches but not usually this severe. No recent fevers, chills, cough, shortness of breath. No abdominal discomfort, diarrhea, black stools, red stools. Related Data Home Medications Medication Instructions Recorded Confirmed atorvastatin 20 mg tablet 20 mg PO QAM 01/15/22 07/06/23 duloxetine 60 mg capsule,delayed 60 mg PO DAILY 01/15/22 07/06/23 release lisinopril 40 mg tablet 40 mg PO DAILY 01/15/22 07/06/23 sitagliptin phosphate 50 50 - 1,000 tab PO BID 01/15/22 07/06/23 mg-metformin 1,000 mg tablet (Janumejerardo) chlorthalidone 25 mg tablet 25 mg PO DAILY 07/06/23 07/06/23 ibuprofen 800 mg tablet 800 mg PO Q6H PRN Pain, Moderate 07/06/23 07/06/23 oxycodone 5 mg tablet 5 mg PO BID PRN Pain, Severe 07/06/23 07/06/23 prazosin 1 mg capsule 2 mg PO BID 07/06/23 07/06/23 Previous Rx's Medication Instructions Recorded cyclobenzaprine 5 mg tablet 5 mg PO TID PRN muscle spasm #10 12/01/22 tabs oxycodone 5 mg tablet 5 mg PO Q6H PRN pain #8 tabs 07/06/23 Allergies Allergy/AdvReac Type Severity Reaction Status Date / Time Penicillins Allergy Mild Rash Verified 08/18/23 07:55 Review of Systems <Srini Wayne MD - Last Filed: 05/30/24 14:36> Review of Systems Narrative: Per HPI Patient History <Srini Wayne MD - Last Filed: 05/30/24 14:36> Medical History Hepatic steatosis COVID (~11/2021) Degenerative joint disease Headache, migraine Hypertension Hyperlipidemia Arthritis Fracture Depression Diabetes Traumatic complete tear of right rotator cuff Surgical History History of hernia repair History of vasectomy Social History household members: children Smoking Status: Never smoker Smoking Status: Never smoker alcohol intake frequency: holidays/special occasions only Substance Use Type: does not use Exam <Srini Wayne MD - Last Filed: 05/30/24 14:36> Narrative Exam Narrative: GENERAL: Well-developed patient, in mild distress. HEAD: Atraumatic. Normocephalic. EYES: Pupils equal round and reactive. Extraocular motions intact. No scleral icterus. No injection or drainage. ENT: Nose without bleeding, purulent drainage. Throat without erythema, tonsillar hypertrophy or exudate. Airway patent. NECK: Trachea midline. Non tender, can move neck side to side and up-down CARDIOVASCULAR: Regular rate and rhythm without murmurs, gallops, or rubs. RESPIRATORY: Clear to auscultation. Breath sounds equal bilaterally. No wheezes, rales, or rhonchi. GASTROINTESTINAL: Abdomen soft, non-tender, nondistended. EXTREMITIES: No edema or joint tenderness. BACK: Nontender without deformity or crepitance. No flank tenderness. NEURO: AOx3. Motor 5/5 BUE and BLE, CN II-XII intact. Clear speech, alert SKIN: No rash or erythema of visible areas Initial Vital Signs Initial Vital Signs: Vital Signs Pulse Rate 71 05/30/24 05:56 Pulse Oximetry 98 05/30/24 05:56 <Nick Genao DO - Last Filed: 05/30/24 07:44> Initial Vital Signs Initial Vital Signs: Vital Signs Pulse Rate 71 05/30/24 05:56 Pulse Oximetry 98 05/30/24 05:56 Course <Srini Wayne MD - Last Filed: 05/30/24 14:36> Orders Ordered: ED Orders 05/30/24 05:58 CBC Auto Diff [Complete Blood Count AUTO DIFF] Stat CMP [Comprehensive Metabolic Panel] Stat Lactate (Lactic Acid) Stat Prothrombin Time INR Stat 05/30/24 06:00 CT head/brain wo con Stat Discontinued Medications Dexamethasone (Dexamethasone 10 Mg/Ml Vial) 10 mg IV NOW ONE Stop: 05/30/24 05:50 Last Admin: 05/30/24 05:57 Dose: 10 mg Documented By: Diphenhydramine HCl (Diphenhydramine 50 Mg/Ml Vial) 25 mg IV NOW ONE Stop: 05/30/24 05:50 Last Admin: 05/30/24 06:02 Dose: 25 mg Documented By: Sodium Chloride (Normal Saline 0.9%) 1,000 mls @ 1,000 mls/hr IV BOLUS ONE Stop: 05/30/24 06:48 Last Infusion: 05/30/24 07:05 Dose: Infused Documented By: Admin: 05/30/24 05:56 Dose: 1,000 mls/hr Documented By: Ketorolac Tromethamine (Ketorolac 30 Mg/Ml Vial) 30 mg IV NOW ONE Stop: 05/30/24 05:50 Last Admin: 05/30/24 05:58 Dose: 30 mg Documented By: Prochlorperazine (Prochlorperazine 10 Mg/2 Ml Vial) 10 mg IV NOW ONE Stop: 05/30/24 05:50 Last Admin: 05/30/24 06:00 Dose: 10 mg Documented By: Vital Signs Vital signs: Vital Signs - 8 hr 05/30/24 06:37 05/30/24 07:00 05/30/24 07:01 Pulse Rate 64 63 60 Blood Pressure Pulse Oximetry 96 95 95 05/30/24 07:01 05/30/24 07:30 05/30/24 07:30 Pulse Rate 59 L Blood Pressure 123/79 123/81 Pulse Oximetry 94 <Nick Genao, DO - Last Filed: 05/30/24 07:44> Orders Ordered: ED Orders 05/30/24 05:58 CBC Auto Diff [Complete Blood Count AUTO DIFF] Stat CMP [Comprehensive Metabolic Panel] Stat Lactate (Lactic Acid) Stat Prothrombin Time INR Stat 05/30/24 06:00 CT head/brain wo con Stat Discontinued Medications Dexamethasone (Dexamethasone 10 Mg/Ml Vial) 10 mg IV NOW ONE Stop: 05/30/24 05:50 Last Admin: 05/30/24 05:57 Dose: 10 mg Documented By: Diphenhydramine HCl (Diphenhydramine 50 Mg/Ml Vial) 25 mg IV NOW ONE Stop: 05/30/24 05:50 Last Admin: 05/30/24 06:02 Dose: 25 mg Documented By: Sodium Chloride (Normal Saline 0.9%) 1,000 mls @ 1,000 mls/hr IV BOLUS ONE Stop: 05/30/24 06:48 Last Infusion: 05/30/24 07:05 Dose: Infused Documented By: Admin: 05/30/24 05:56 Dose: 1,000 mls/hr Documented By: Ketorolac Tromethamine (Ketorolac 30 Mg/Ml Vial) 30 mg IV NOW ONE Stop: 05/30/24 05:50 Last Admin: 05/30/24 05:58 Dose: 30 mg Documented By: Prochlorperazine (Prochlorperazine 10 Mg/2 Ml Vial) 10 mg IV NOW ONE Stop: 05/30/24 05:50 Last Admin: 05/30/24 06:00 Dose: 10 mg Documented By: Vital Signs Vital signs: Vital Signs - 8 hr 05/30/24 06:37 05/30/24 07:00 05/30/24 07:01 Pulse Rate 64 63 60 Blood Pressure Pulse Oximetry 96 95 95 05/30/24 07:01 05/30/24 07:30 05/30/24 07:30 Pulse Rate 59 L Blood Pressure 123/79 123/81 Pulse Oximetry 94 Medical Decision Making <Srini Wayne MD - Last Filed: 05/30/24 14:36> Lab Data Lab results reviewed: Yes I reviewed the patient's lab results. 05/30/24 05:58 05/30/24 05:58 Labs: Lab Results 05/30/24 Range/Units 05:58 WBC 6.4 (4.5-11.0) X10^3/uL RBC 5.49 (4.5-5.9) X10^6/uL Hgb 15.9 (13.5-17.5) g/dL Hct 45.4 (41-53) % MCV 82.7 (80-100) fL MCH 29.0 (26-34) PG MCHC 35.0 (30-36) % RDW 14.1 (11.6-14.8) % Plt Count 193 (150-400) X10^3/uL Neut % (Auto) 60.4 (50-75) % Lymph % (Auto) 27.1 (25-40) % [place] % (Auto) 8.1 (3-14) % Eos % (Auto) 4.0 (2-4) % Baso % (Auto) 0.4 (0-2) % Neut # (Auto) 3800 (7786-3094) /uL Lymph # (Auto) 1700 (0533-7163) /uL [place] # (Auto) 500 (0-900) /uL Eos # (Auto) 300 (0-450) /uL Baso # (Auto) 0 (0-100) /uL PT 11.5 (9.4-12.5) SECONDS INR 1.0 (0.9-1.3) Sodium 140 (137-145) mmol/L Potassium 3.4 (3.4-5.1) mmol/L Chloride 103 (98-107) mmol/L Carbon Dioxide 31 (22-32) mmol/L BUN 19 (9-20) mg/dL Creatinine 0.86 (0.66-1.25) mg/dL Estimated GFR > 60 (>60) mL/min BUN/Creatinine Ratio 22.1 H (6-22) Glucose 154 H (70-100) mg/dL Lactate 1.5 (0.7-2.1) mmol/L Calcium 9.1 (8.4-10.2) mg/dL Total Bilirubin 0.7 (0.2-1.3) mg/dL AST 37 (17-59) IU/L ALT 64 H (<50) IU/L Alkaline Phosphatase 88 (38-126) U/L Total Protein 7.5 (6.3-8.2) g/dL Albumin 4.4 (3.5-5.0) g/dL Globulin 3.1 (1.7-4.1) g/dL Albumin/Globulin Ratio 1.4 (1.0-2.8) Point of Care Testing Glucose POC 156 Point of care testing: Point of Care Testing Glucose POC 156 MDM Narrative Medical decision making narrative: Patient with headache since last night, afebrile, no trauma, did endorse some tingling to left fingers unilateral. History of prior headaches but none this bad. DDX consider migraine headache, subarachnoid hemorrhage, meningitis, encephalitis, vertebral artery dissection, other. IV Toradol, Decadron, Compazine, Benadryl initiated. CT head noncontrast study ordered. Labs sent. White blood cell count not elevated, no shift, lactate normal. Patient seems to have some improvement in his headache. CT head noncontrast study without obvious acute changes on my read, no bleeding or mass, no hydrocephalus, on my view. Await radiology report. CT head noncontrast, impression: ?No CT evidence of acute intracranial pathology. ? See teleradiology report [id number], no acute findings on CT head report, patient informed, headache improving some after IV headache cocktail medications above. Signed out to oncoming ED shift physician Dr. Chadwick Genao: Received turned over. He would patient's history and physical and workup to this point. Patient reports normal complete resolution symptoms. He states he was feeling well enough to go home. Head CT is unremarkable. Labs unremarkable. Low suspicion for meningitis or other acute intracranial pathology. Discharge patient return. He expressed understanding and agreement. <Nick Genao, DO - Last Filed: 05/30/24 07:44> Lab Data Labs: Lab Results 05/30/24 Range/Units 05:58 WBC 6.4 (4.5-11.0) X10^3/uL RBC 5.49 (4.5-5.9) X10^6/uL Hgb 15.9 (13.5-17.5) g/dL Hct 45.4 (41-53) % MCV 82.7 (80-100) fL MCH 29.0 (26-34) PG MCHC 35.0 (30-36) % RDW 14.1 (11.6-14.8) % Plt Count 193 (150-400) X10^3/uL Neut % (Auto) 60.4 (50-75) % Lymph % (Auto) 27.1 (25-40) % [place] % (Auto) 8.1 (3-14) % Eos % (Auto) 4.0 (2-4) % Baso % (Auto) 0.4 (0-2) % Neut # (Auto) 3800 (5429-4872) /uL Lymph # (Auto) 1700 (0250-5078) /uL [place] # (Auto) 500 (0-900) /uL Eos # (Auto) 300 (0-450) /uL Baso # (Auto) 0 (0-100) /uL PT 11.5 (9.4-12.5) SECONDS INR 1.0 (0.9-1.3) Sodium 140 (137-145) mmol/L Potassium 3.4 (3.4-5.1) mmol/L Chloride 103 (98-107) mmol/L Carbon Dioxide 31 (22-32) mmol/L BUN 19 (9-20) mg/dL Creatinine 0.86 (0.66-1.25) mg/dL Estimated GFR > 60 (>60) mL/min BUN/Creatinine Ratio 22.1 H (6-22) Glucose 154 H (70-100) mg/dL Lactate 1.5 (0.7-2.1) mmol/L Calcium 9.1 (8.4-10.2) mg/dL Total Bilirubin 0.7 (0.2-1.3) mg/dL AST 37 (17-59) IU/L ALT 64 H (<50) IU/L Alkaline Phosphatase 88 (38-126) U/L Total Protein 7.5 (6.3-8.2) g/dL Albumin 4.4 (3.5-5.0) g/dL Globulin 3.1 (1.7-4.1) g/dL Albumin/Globulin Ratio 1.4 (1.0-2.8) Point of Care Testing Glucose POC 156 Point of care testing: Point of Care Testing Glucose POC 156 [facility] Narrative Medical decision making narrative: Patient with headache since last night, afebrile, no trauma, did endorse some tingling to left fingers unilateral. History of prior headaches but none this bad. DX consider migraine headache, subarachnoid hemorrhage, meningitis, vertebral artery dissection, other. IV Toradol, Decadron, Compazine, Benadryl initiated. CT head noncontrast study ordered. Labs sent. White blood cell count not elevated, no shift, lactate normal. Patient seems to have some improvement in his headache. CT head noncontrast study without obvious acute changes, no bleeding or mass, no hydrocephalus, on my view. Await radiologist's report. CT head noncontrast, impression: ?No CT evidence of acute intracranial pathology. ? See teleradiology report 0700, no acute findings on CT head, patient informed, headache improving some after IV headache cocktail medications above. Signed out to oncoming ED shift physician Dr. Chadwick Genao: Received turned over. He would patient's history and physical and workup to this point. Patient reports normal complete resolution symptoms. He states he was feeling well enough to go home. Head CT is unremarkable. Labs unremarkable. Low suspicion for meningitis or other acute intracranial pathology. Discharge patient return. He expressed understanding and agreement. Discharge Plan Departure Patient Disposition: Home Clinical Impression: Headache Instructions: DI for Headache Activity Restrictions/Additional Instructions: You can continue to take Tylenol and or ibuprofen. Be sure that you are staying hydrated. Contact your primary doctor for follow-up. Return to the emergency department for new symptoms. Prescriptions: No Action atorvastatin 20 mg tablet 20 mg PO QAM lisinopril 40 mg tablet 40 mg PO DAILY duloxetine 60 mg capsule,delayed release(DR/EC) 60 mg PO DAILY Janumet 50-1,000 mg tablet 50 - 1,000 tab PO BID Rx Instructions: With Meals cyclobenzaprine 5 mg tablet 5 mg PO TID PRN (Reason: muscle spasm) Qty: 10 0RF prazosin 1 mg capsule 2 mg PO BID chlorthalidone 25 mg tablet 25 mg PO DAILY oxycodone 5 mg tablet 5 mg PO BID PRN (Reason: Pain, Severe) ibuprofen 800 mg tablet 800 mg PO Q6H PRN (Reason: Pain, Moderate) oxycodone 5 mg tablet 5 mg PO Q6H PRN (Reason: pain) Qty: 8 0RF Referrals: Clay Black DO [Primary Care Provider] - Stand Alone Forms: Patient Portal/API
[2024-05-30] MEDS: SODIUM CHLORIDE 0.9% 1,000 ML 1000 ML IV (05:56)
[2024-05-30] MEDS: DEXAMETHASONE 10 MG/ML VIAL IV (05:57)
[2024-05-30] MEDS: KETOROLAC 30 MG/ML VIAL IV (05:58)
[2024-05-30] MEDS: PROCHLORPERAZINE 10 MG/2 ML VIAL IV (06:00)
--- NOTE | 2024-05-30 06:00 | DI.CT.S_ITS ---
PROCEDURE: CT HEAD/BRAIN WO CON INDICATIONS: headache TECHNIQUE: Noncontrast 4.5 mm thick angled axial sections acquired from the foramen magnum to the vertex, with coronal and sagittal reformats. For radiation dose reduction, the following was used: automated exposure control, adjustment of mA and/or kV according to patient size. COMPARISON: [facility], CT, CT HEAD/BRAIN WO CON, 02/13/2022, 13:16. FINDINGS: Image quality: Diagnostic CSF spaces: Basal cisterns are patent. Lateral ventricles are symmetric. Volume: Mild volume loss Brain: No gross loss of whitley-white differentiation. No acute hemorrhage. Craniofacial structures: Unremarkable Craniofacial structures where visualized IMPRESSION: No acute intracranial abnormality. If there is high concern for parenchymal pathology, consider further evaluation with MRI. Agree with prelim report Dictated by: Lon Chakraborty M.D. on 05/30/2024 at 8:12 Approved by: Lon Chakraborty M.D. on 05/30/2024 at 8:14
[2024-05-30] MEDS: diphenhydrAMINE 50 MG/ML VIAL 25 MG IV (06:02)
[2024-05-30 06:20] LABS: Alanine Aminotransferase 64 IU/L (<50); Albumin 4.4 g/dL (3.5-5.0); Albumin Globulin Ratio 1.4 (1.0-2.8); Alkaline Phosphatase 88 U/L (38-126); Aspartate Aminotransferase 37 IU/L (17-59); BUN Creatinine Ratio 22.1 (6-22); Bilirubin Total 0.7 mg/dL (0.2-1.3); Blood Urea Nitrogen 19 mg/dL (9-20); Calcium 9.1 mg/dL (8.4-10.2); Carbon Dioxide 31 mmol/L (22-32); Chloride 103 mmol/L (98-107); Estimated Glomerular Filt Rate > 60 mL/min (>60); Globulin 3.1 g/dL (1.7-4.1); Glucose 154 mg/dL (70-100); HEMOLYSIS 27 (0-50); Potassium 3.4 mmol/L (3.4-5.1); Sodium 140 mmol/L (137-145); Total Protein 7.5 g/dL (6.3-8.2)
[2024-05-30 06:21] LABS: Lactate (Lactic Acid) 1.5 mmol/L (0.7-2.1)
[2024-05-30 06:23] LABS: Prothrombin Time 11.5 SECONDS (9.4-12.5)
[2024-05-30 06:32] LABS: Add Manual Diff / Slide Review NO; Basophils Absolute Auto 0 /uL (0-100); Basophils Percent Auto 0.4 % (0-2); Eosinophils Absolute Auto 300 /uL (0-450); Hematocrit 45.4 % (41-53); Hemoglobin 15.9 g/dL (13.5-17.5); Lymphocytes Absolute Auto 1700 /uL (1100-4500); Lymphocytes Percent Auto 27.1 % (25-40); Mean Corpuscular Volume 82.7 fL (80-100); Monocytes Absolute Auto 500 /uL (0-900); Monocytes Percent Auto 8.1 % (3-14); Neutrophils Absolute Auto 3800 /uL (1500-7000); Neutrophils Percent Auto 60.4 % (50-75); Platelet Count 193 X10^3/uL (150-400); Red Blood Cell Count 5.49 X10^6/uL (4.5-5.9); Red Cell Distribution Width 14.1 % (11.6-14.8); White Blood Cell Count 6.4 X10^3/uL (4.5-11.0)
--- NOTE | 2024-05-30 07:03 | PC.NURSE ---
pt states the medication took the edge off of the h/a which is now about a 03/02
== END 2024-05-30 07:54 | disposition home or self-care (01) ==
PROVIDERS: Emergency Medicine; Emergency Provider Emergency Medicine; PCP Family Medicine
DX: R51.9 Headache, unspecified (principal); M54.2 Cervicalgia
CPT/HCPCS: 36415; 70450; 80053; 82962; 83605; 85025; 85610; 96374; 96375; 99284; J0780; J1100; J1200; J1885

== ENCOUNTER → 2024-12-27 18:29 | Outpatient (CLI) | payer OTHER, SELFPAY ==
--- NOTE | 2024-12-27 | DI.MRI.S_ITS ---
PROCEDURE: MR CERVICAL SPINE WO CON INDICATIONS: paralysis of left arm TECHNIQUE: Noncontrast sagittal T1 spin echo and T2 fast spin echo, sagittal STIR, foraminal oblique sagittal T2 fast spin echo, and axial gradient echo or T2 fast spin echo through the cervical spine. COMPARISON: [facility], MR, MR CERVICAL SPINE WO/W CON, 08/22/2022, 8:01. FINDINGS: Image quality: Excellent. Alignment and Curvature: There is normal bony alignment. Bone Marrow: Marrow demonstrates normal overall signal. Spinal Cord: Visualized spinal cord has normal size and signal. No cerebellar tonsillar herniation. Paraspinous Soft Tissues: No paravertebral masses. Prevertebral soft tissues are normal in thickness. C2-C3: No disc bulge, spinal stenosis or foraminal narrowing. No interval change. C3-C4: No disc bulge, spinal stenosis or foraminal narrowing. No interval change. C4-C5: Trace disc bulge without spinal stenosis. Minimal left foraminal narrowing, slightly progressive. C5-C6: No disc bulge or spinal stenosis. Minimal bilateral foraminal narrowing relatively stable. C6-C7: No disc bulge, spinal stenosis or foraminal narrowing. No interval change. C7-T1: No disc bulge, spinal stenosis or foraminal narrowing. No interval change. IMPRESSION: Mild areas degenerative change with minimal progression as above. Dictated by: Makayla Scott M.D. on 12/27/2024 at 21:15 Approved by: Makayla Scott M.D. on 12/27/2024 at 21:18
--- NOTE | 2024-12-27 | DI.MRI.S_ITS ---
PROCEDURE: MR THORACIC SPINE WO CON INDICATIONS: paralysis of left arm TECHNIQUE: Noncontrast sagittal T1 spine echo and T2 fast spin echo, sagittal STIR, and T2 fast spin echo through the thoracic spine. COMPARISON: [facility], , MR THORACIC SPINE WO/W CON, 08/22/2022, 8:01. FINDINGS: Image quality: Excellent. Alignment and Curvature: There is normal bony alignment. Bone Marrow: Marrow is of normal overall signal. No acute vertebral body compression fractures. Spinal Cord: Visualized spinal cord is normal in size and signal. Paraspinous Soft Tissues: No paravertebral masses. Miscellaneous: On axial images, central canal and foramina appear widely patent at all scanned levels. IMPRESSION: No appreciable disc bulges, spinal stenosis or foraminal narrowing. Stable interval exam. Dictated by: Makayla Scott M.D. on 12/27/2024 at 21:20 Approved by: Makayla Scott M.D. on 12/27/2024 at 21:21
== END ==
PROVIDERS: PCP Family Medicine; Referring Provider Family Medicine; Visit Provider Family Medicine
DX: M54.2 Cervicalgia (principal); M54.9 Dorsalgia, unspecified
CPT/HCPCS: 72141; 72146

== ENCOUNTER 2025-01-18 22:42 | Emergency (ER) | payer OTHER, SELFPAY ==
[2025-01-18 22:52] VITALS: BP 168/101; PULSE 87; RESP 14; TEMP 36.4; O2SAT 97; BMI 29.0
[2025-01-18] MEDS: ONDANSETRON 4 MG/2 ML INJ IV (23:12)
[2025-01-18 23:23] LABS: Add Manual Diff / Slide Review NO; Basophils Absolute Auto 0 /uL (0-100); Basophils Percent Auto 0.8 % (0-2); Eosinophils Absolute Auto 200 /uL (0-450); Eosinophils Percent Auto 3.5 % (2-4); Hemoglobin 14.9 g/dL (13.5-17.5); Lymphocytes Absolute Auto 1400 /uL (1100-4500); Lymphocytes Percent Auto 25.7 % (25-40); Mean Corpuscular HGB Conc 34.7 % (30-36); Mean Corpuscular Hemoglobin 28.7 PG (26-34); Mean Corpuscular Volume 82.5 fL (80-100); Monocytes Absolute Auto 500 /uL (0-900); Monocytes Percent Auto 9.9 % (3-14); Neutrophils Absolute Auto 3200 /uL (1500-7000); Neutrophils Percent Auto 60.1 % (50-75); Platelet Count 201 X10^3/uL (150-400); Red Blood Cell Count 5.21 X10^6/uL (4.5-5.9); Red Cell Distribution Width 14.5 % (11.6-14.8); White Blood Cell Count 5.3 X10^3/uL (4.5-11.0)
[2025-01-18] MEDS: SODIUM CHLORIDE 0.9% 1,000 ML 1000 ML IV (23:30)
[2025-01-18 23:32] LABS: Alanine Aminotransferase 61 IU/L (<50); Albumin 4.5 g/dL (3.5-5.0); Albumin Globulin Ratio 1.7 (1.0-2.8); Alkaline Phosphatase 93 U/L (38-126); Aspartate Aminotransferase 38 IU/L (17-59); Bilirubin Total 0.6 mg/dL (0.2-1.3); Blood Urea Nitrogen 18 mg/dL (9-20); Calcium 9.2 mg/dL (8.4-10.2); Carbon Dioxide 21 mmol/L (22-32); Chloride 103 mmol/L (98-107); Estimated Glomerular Filt Rate > 60 mL/min (>60); Globulin 2.7 g/dL (1.7-4.1); Glucose 249 mg/dL (70-100); HEMOLYSIS 18 (0-50); Lipase 126 U/L (23-300); Potassium 3.5 mmol/L (3.4-5.1); Sodium 138 mmol/L (137-145); Total Protein 7.2 g/dL (6.3-8.2)
[2025-01-18 23:52] VITALS: O2SAT 97
[2025-01-18 23:53] VITALS: BP 169/94; PULSE 76; O2SAT 97
[2025-01-19] VITALS (7 sets, daily range): BP systolic 150–175; BP diastolic 101–107; PULSE 62–72; O2SAT 94–96
--- NOTE | 2025-01-19 00:07 | DI.CT.S_ITS ---
PROCEDURE: CT ABDOMEN PELVIS W CON INDICATIONS: Left lower quadrant pain TECHNIQUE: After the administration of intravenous contrast, axial sections acquired from the lung bases to the pubic symphysis. Coronal and sagittal reformats were performed. For radiation dose reduction, the following was used: automated exposure control, adjustment of mA and/or kV according to patient size. COMPARISON: [facility], CT, CT ABDOMEN PELVIS W CON, 08/18/2023, 8:48. FINDINGS: Image quality: Diagnostic. Lower Chest: No significant findings. ABDOMEN: Liver: No solid mass. Hepatic steatosis. Gallbladder: No radiopaque gallstones or wall thickening. Biliary ducts: No biliary dilation. Pancreas: No ductal dilation. Spleen: Size is within normal limits. Adrenal Glands: No adrenal nodules. Kidneys and Ureters: Few punctate nonobstructing right renal stones measuring 3 mm or less. No hydronephrosis. No solid mass. No complex renal cystic lesion which requires follow up. Stomach and Bowel: Diverticulosis is present. There is mild pericolonic fat stranding adjacent to the descending colon. Normal appendix. No small bowel obstruction. Peritoneum: No abnormal intraperitoneal fluid. No free air. Ventral Wall: No significant ventral hernia. Abdominal Nodes: No retroperitoneal or mesenteric adenopathy by size criteria. Vessels: Aorta and inferior vena cava are normal in size. Atherosclerotic vascular calcifications. PELVIS: Pelvic Organs: Unremarkable. Bladder: No bladder wall thickening, accounting for underdistention. Pelvic Nodes: No enlarged lymph nodes. Miscellaneous: No inguinal hernias are seen. Bones: No aggressive osseous abnormality. IMPRESSION: 1. Diverticulosis is present. There is mild fat stranding adjacent to the descending colon, may represent early diverticulitis versus other inflammatory process. No extraluminal gas or organized fluid collection. 2. Hepatic steatosis. 3. Punctate nonobstructing right renal stones. Dictated by: Elgin Wadsworth M.D. on 01/19/2025 at 0:31 Approved by: Elgin Wadsworth M.D. on 01/19/2025 at 0:35
[2025-01-19] MEDS: ONDANSETRON 4 MG/2 ML INJ IV (00:25)
[2025-01-19] MEDS: HYDROMORPHONE 0.5 MG INJ IV (00:25)
[2025-01-19 00:30] LABS: Bacteria Urine None Seen; RBC Urine 10-30/HPF (0-5/HPF); Urine Volume 10mL (spun); WBC Urine None Seen (0-5/HPF)
[2025-01-19 00:31] LABS: Culture Indicated Urine Cult Not Indicated; Squamous Epithelial Cell Urine 0-1 /HPF (0-5/HPF)
--- NOTE | 2025-01-19 00:32 | ED.GENADULT ---
HPI - General Adult General Chief complaint: Abdominal Pain Stated complaint: lt quad abd pain Time Seen by Provider: 01/19/25 00:01 Source: patient Mode of arrival: Ambulatory History of Present Illness HPI narrative: 49-year-old gentleman with a history of hypertension, hyperlipidemia has been having some diarrhea over the last 4 days. In the last 2 days he has been developing increasing pain in the left lower quadrant. No fevers or chills. He is able to eat and drink. No chest pain or palpitations. Comes in today with increasing left-sided abdominal pain and having difficulty getting comfortable in the bed. He feels better at rest. There was no hematuria no flank pain. Related Data Home Medications Medication Instructions Recorded Confirmed atorvastatin 20 mg tablet 20 mg PO QAM 01/15/22 07/06/23 duloxetine 60 mg capsule,delayed 60 mg PO DAILY 01/15/22 07/06/23 release lisinopril 40 mg tablet 40 mg PO DAILY 01/15/22 07/06/23 sitagliptin phosphate 50 50 - 1,000 tab PO BID 01/15/22 07/06/23 mg-metformin 1,000 mg tablet (Jamesumejerardo) chlorthalidone 25 mg tablet 25 mg PO DAILY 07/06/23 07/06/23 ibuprofen 800 mg tablet 800 mg PO Q6H PRN Pain, Moderate 07/06/23 07/06/23 oxycodone 5 mg tablet 5 mg PO BID PRN Pain, Severe 07/06/23 07/06/23 prazosin 1 mg capsule 2 mg PO BID 07/06/23 07/06/23 Previous Rx's Medication Instructions Recorded cyclobenzaprine 5 mg tablet 5 mg PO TID PRN muscle spasm #10 12/01/22 tabs oxycodone 5 mg tablet 5 mg PO Q6H PRN pain #8 tabs 07/06/23 ciprofloxacin HCl 750 mg tablet 750 mg PO BID #20 tabs 01/19/25 metronidazole 500 mg tablet 500 mg PO BID #20 tabs 01/19/25 oxycodone-acetaminophen 5 mg-325 1 tab PO Q6H PRN pain #10 tabs 01/19/25 mg tablet Allergies Allergy/AdvReac Type Severity Reaction Status Date / Time Penicillins Allergy Mild Rash Verified 08/18/23 07:55 Review of Systems Review of Systems Narrative: Pertinent positive and negative findings as per HPI Patient History Medical History Hepatic steatosis COVID (~11/2021) Degenerative joint disease Headache, migraine Hypertension Hyperlipidemia Arthritis Fracture Depression Diabetes Traumatic complete tear of right rotator cuff Surgical History History of hernia repair History of vasectomy Social History household members: children Smoking Status: Never smoker Smoking Status: Never smoker alcohol intake frequency: a few times a month Exam Initial Vital Signs Initial Vital Signs: Vital Signs Temperature 97.5 F L 01/18/25 22:52 Pulse Rate 87 01/18/25 22:52 Respiratory Rate 14 01/18/25 22:52 Blood Pressure 168/101 H 01/18/25 22:52 Pulse Oximetry 97 01/18/25 22:52 Oxygen Delivery Method Room Air 01/18/25 22:52 General: Healthy appearing, in obvious pain, positioned uncomfortably on the bed able to cooperate fully with the exam HEENT: Moist mucous membranes, normal sclera with reactive pupils, Respiratory: Lungs are clear to auscultation, no wheezing no rales no rhonchi. Full and symmetrical air movement Cardiac: Regular rate and rhythm no murmurs no bruits Abdomen: Soft, diffusely tender with significant tenderness in the left lower quadrant. No rebound or guarding. Flank pain Skin: Warm and dry, no rashes Neurologic: Grossly neurologically intact with no obvious asymmetries or abnormalities Extremities: No trauma, well perfused Psych: Cooperative, appropriate insight and affect Course Orders Ordered: ED Orders 01/18/25 22:58 EKG-12 Lead Stat 01/18/25 23:13 Complete Blood Count AUTO DIFF Stat Comprehensive Metabolic Panel Stat Lipase Stat 01/19/25 00:03 Urine Microscopic Stat 01/19/25 00:07 CT abdomen pelvis w con Stat Hydromorphone HCl (Hydromorphone 0.5 Mg Inj) 0.5 mg IV Q15MIN PRN PRN Reason: Pain, Last Admin: 01/19/25 00:25 Dose: 0.5 mg Documented By: HUDSON Ondansetron HCl (Ondansetron 4 Mg/2 Ml Inj) 4 mg IV NOW PRN PRN Reason: Nausea And Vomiting Last Admin: 01/18/25 23:12 Dose: 4 mg Documented By: Ondansetron HCl (Ondansetron 4 Mg Odt) 4 mg PO NOW PRN PRN Reason: Nausea And Vomiting Discontinued Medications Diphenhydramine HCl (Diphenhydramine 50 Mg/Ml Vial) 25 mg IV NOW ONE Stop: 01/19/25 00:33 Last Admin: 01/19/25 00:36 Dose: 25 mg Documented By: HUDSON Sodium Chloride (Normal Saline 0.9%) 1,000 mls @ 1,000 mls/hr IV BOLUS ONE Stop: 01/19/25 01:05 Last Infusion: 01/19/25 00:33 Dose: Infused Documented By: Admin: 01/18/25 23:30 Dose: 1,000 mls/hr Documented By: HUDSON Ondansetron HCl (Ondansetron 4 Mg/2 Ml Inj) 4 mg IV NOW ONE Stop: 01/19/25 00:07 Last Admin: 01/19/25 00:25 Dose: 4 mg Documented By: HUDSON Vital Signs Vital signs: Vital Signs - 8 hr 01/18/25 22:52 01/18/25 23:52 01/18/25 23:53 Temperature 97.5 F L Pulse Rate 87 Respiratory Rate 14 Blood Pressure 168/101 H 169/94 H Pulse Oximetry 97 97 Oxygen Delivery Method Room Air 01/18/25 23:53 01/19/25 00:00 01/19/25 00:29 Temperature Pulse Rate 76 71 Respiratory Rate Blood Pressure 175/106 H Pulse Oximetry 97 96 Oxygen Delivery Method 01/19/25 00:29 01/19/25 00:30 01/19/25 00:31 Temperature Pulse Rate 68 71 Respiratory Rate Blood Pressure 173/107 H Pulse Oximetry 96 96 Oxygen Delivery Method 01/19/25 00:31 01/19/25 01:00 01/19/25 01:00 Temperature Pulse Rate 72 62 Respiratory Rate Blood Pressure 150/101 H Pulse Oximetry 96 95 Oxygen Delivery Method Medical Decision Making Lab Data 01/18/25 23:13 01/18/25 23:13 Labs: Lab Results 01/18/25 01/18/25 Range/Units 21:27 23:13 WBC 5.3 (4.5-11.0) X10^3/uL RBC 5.21 (4.5-5.9) X10^6/uL Hgb 14.9 (13.5-17.5) g/dL Hct 43.0 (41-53) % MCV 82.5 (80-100) fL MCH 28.7 (26-34) PG MCHC 34.7 (30-36) % RDW 14.5 (11.6-14.8) % Plt Count 201 (150-400) X10^3/uL Neut % (Auto) 60.1 (50-75) % Lymph % (Auto) 25.7 (25-40) % [place] % (Auto) 9.9 (3-14) % Eos % (Auto) 3.5 (2-4) % Baso % (Auto) 0.8 (0-2) % Neut # (Auto) 3200 (2058-2192) /uL Lymph # (Auto) 1400 (3148-2133) /uL [place] # (Auto) 500 (0-900) /uL Eos # (Auto) 200 (0-450) /uL Baso # (Auto) 0 (0-100) /uL Sodium 138 (137-145) mmol/L Potassium 3.5 (3.4-5.1) mmol/L Chloride 103 (98-107) mmol/L Carbon Dioxide 21 L (22-32) mmol/L BUN 18 (9-20) mg/dL Creatinine 0.72 (0.66-1.25) mg/dL Estimated GFR > 60 (>60) mL/min BUN/Creatinine Ratio 25.0 H (6-22) Glucose 249 H (70-100) mg/dL Calcium 9.2 (8.4-10.2) mg/dL Total Bilirubin 0.6 (0.2-1.3) mg/dL AST 38 (17-59) IU/L ALT 61 H (<50) IU/L Alkaline Phosphatase 93 (38-126) U/L Total Protein 7.2 (6.3-8.2) g/dL Albumin 4.5 (3.5-5.0) g/dL Globulin 2.7 (1.7-4.1) g/dL Albumin/Globulin Ratio 1.7 (1.0-2.8) Lipase 126 (23-300) U/L Urine RBC 10-30/hpf H (0-5/HPF) Urine WBC None seen (0-5/HPF) Ur Squamous Epith Cells 0-1 /hpf (0-5/HPF) Urine Bacteria None seen (None) Ur Culture Indicated? Cult not indicated Vol Urine Centrifuged 10ml (spun) MDM Narrative Medical decision making narrative: CC: 4 days of diarrhea with 2 days of increasing left lower quadrant pain Complicating co-morbidities: hypertension hyperlipidemia Data collected from: patient Medical records reviewed: prior ER notes over the last 2 years or the only medical records immediately available Differential considered: diverticulitis, diverticular abscess, bowel perforation, colitis, pyelonephritis Exam documented above, pertinent findings include: significant left lower quadrant pain not yet to rebound or guarding. Remainder exam is benign Lab Test results independently reviewed as above. Pertinent findings: CBC is reassuring chemistries did not show acute abnormality Imaging studies independently reviewed: CT scan of the abdomen does not show acute abscess. He does have diverticulosis with developing pericolonic fat stranding. That combined with his physical exam is certainly concerning for developing diverticulitis Re-evaluations:Returning from CT scan, patient has some mild facial itching. States that this happened last time too. No airway issues. No rash. He is given 25 mg of IV Benadryl Discussion: 49-year-old gentleman with likely developing diverticulitis. He is allergic to penicillin we will stroke him on Cipro and Flagyl. His blood pressure is remained elevated throughout his emergency room stay despite adequate pain control. His notes that his blood pressure medications discontinued by his primary care physician about 2 weeks ago with concerns for hyperkalemia. They are in close contact with her, they have been checking blood pressures in are noticing that there increasing, will check in with her regarding restarting blood pressure medications Discharge Plan Departure Patient Disposition: Home Clinical Impression: Diverticulitis, Elevated blood pressure reading in office with diagnosis of hypertension Instructions: DI for Diverticulitis Activity Restrictions/Additional Instructions: thank you for coming in today you CT scan shows inflammation around your colon as well as diverticula. I suspect you are beginning to develop a diverticulitis as a cause of your pain. There was no evidence of bowel perforation or reason for acute surgical intervention or hospitalization. I have given you a prescription for 10 days of ciprofloxacin and 10 days of Flagyl to treat the diverticulitis. I have also given you a small prescription for Percocet, this is Tylenol plus oxycodone that can be helpful with pain control. It can cause constipation which can make diverticulitis worse. In light of your recent diarrhea it may help slightly. Please make sure you are staying well hydrated and if you find that you are becoming constipated feel free to add a stool softener even with adequate pain control in the emergency department your blood pressure was still slightly elevated. I would recommend continuing to check it on an outpatient basis and discuss this with your primary care physician. You likely need to be back on your blood pressure medications If you find that you are getting worse or develop any new symptoms, please feel free to return to the emergency department for further evaluation. Prescriptions: New ciprofloxacin HCl 750 mg tablet 750 mg PO BID Qty: 20 0RF metronidazole 500 mg tablet 500 mg PO BID Qty: 20 0RF oxycodone-acetaminophen 5-325 mg tablet 1 tab PO Q6H PRN (Reason: pain) Qty: 10 0RF No Action atorvastatin 20 mg tablet 20 mg PO QAM lisinopril 40 mg tablet 40 mg PO DAILY duloxetine 60 mg capsule,delayed release(DR/EC) 60 mg PO DAILY Janumet 50-1,000 mg tablet 50 - 1,000 tab PO BID Rx Instructions: With Meals cyclobenzaprine 5 mg tablet 5 mg PO TID PRN (Reason: muscle spasm) Qty: 10 0RF prazosin 1 mg capsule 2 mg PO BID chlorthalidone 25 mg tablet 25 mg PO DAILY oxycodone 5 mg tablet 5 mg PO BID PRN (Reason: Pain, Severe) ibuprofen 800 mg tablet 800 mg PO Q6H PRN (Reason: Pain, Moderate) oxycodone 5 mg tablet 5 mg PO Q6H PRN (Reason: pain) Qty: 8 0RF Referrals: Clay Black DO [Primary Care Provider] - Stand Alone Forms: Patient Portal/API/Survey
--- NOTE | 2025-01-19 00:33 | PC.NURSE ---
Pt reports face itching in eyes and near mouth and of nose after IV contrast. Pt denies difficultly swallowing or breathing. Provider made aware. New orders.
[2025-01-19] MEDS: diphenhydrAMINE 50 MG/ML VIAL 25 MG IV (00:36)
== END 2025-01-19 01:46 | disposition home or self-care (01) ==
PROVIDERS: Emergency Provider Emergency Medicine; PCP Family Medicine
DX: K57.32 Diverticulitis of large intestine without perforation or abscess without bleeding (principal); I10 Essential (primary) hypertension; E78.5 Hyperlipidemia, unspecified
CPT/HCPCS: 36415; 74177; 80053; 81015; 83690; 85025; 96361; 96374; 96375; 96376; 99284; J1171; J1200; J2405; Q9967